=== PATIENT | male | born 1955 | race Caucasian/White ===

== ENCOUNTER 2020-12-10 10:53 | Observation (INO) | payer MEDICARE, OTHER ==
--- NOTE | 2020-12-10 11:01 | EDM.PDOC ---
ED HPI GENERAL MEDICAL PROBLEM - General Chief Complaint: Chest Pain Stated Complaint: CHEST PAIN Time Seen by Provider: 12/10/20 11:06 Source of Information: Reports: Patient, RN Notes Reviewed History Limitations: Reports: No Limitations - History of Present Illness INITIAL COMMENTS - FREE TEXT/NARRATIVE: 65-year-old gentleman presents emergency department with a complaint of chest tightness, he states it started early this morning about 3 AM was able to go back to sleep but awoke this morning pain has persisted, rates pain 6 out of 10 he has had some sharper movements has felt some short of breath no nausea vomiting no diaphoresis. He has no known cardiac history but he does smoke and he does have diabetes family history with his parents Chest Pain Score (Numeric/FACES): 6 - Related Data Allergies Allergy/AdvReac Type Severity Reaction Status Date / Time Sulfa (Sulfonamide Allergy Blisters Verified 12/10/20 12:17 Antibiotics) Home Meds: Home Meds Esomeprazole Magnesium [Nexium 24Hr] 1 tab PO DAILY 12/10/20 [History] Insulin Aspart [NovoLOG] 8 units SQ DAILY 12/10/20 [History] Insulin Glarg,Human.Rec.Analog [Lantus Solostar] 18 units SQ BEDTIME 12/10/20 [History] Multivitamin [Multi-Vitamin Daily] 1 tab PO DAILY 12/10/20 [History] lisinopriL [Lisinopril] 20 mg PO DAILY 12/10/20 [History] metFORMIN [Glucophage] 1,000 mg PO BID 12/10/20 [History] Past Medical History Cardiovascular History: Reports: High Cholesterol, Hypertension Endocrine/Metabolic History: Reports: Diabetes, Type II Social & Family History - Tobacco Use Tobacco Use Status *Q: Current Every Day Tobacco User ED ROS GENERAL - Review of Systems Review Of Systems: See Below Constitutional: Reports: No Symptoms Respiratory: Reports: Shortness of Breath Cardiovascular: Reports: Chest Pain GI/Abdominal: Reports: No Symptoms ED EXAM, GENERAL - Physical Exam Exam: See Below Exam Limited By: No Limitations General Appearance: Alert, WD/WN, No Apparent Distress Respiratory/Chest: No Respiratory Distress, Lungs Clear, Normal Breath Sounds, No Accessory Muscle Use, Chest Non-Tender Cardiovascular: Regular Rate, Rhythm, No Murmur GI/Abdominal: Soft, Non-Tender Extremities: No Pedal Edema #1 Interpretation EKG Date: 12/10/20 Time: 10:57 Rhythm: NSR [place]: LAD-Left [place] Deviation P-Wave: Present QRS: Normal ST-T: Normal QT: Normal Comparison: NA - No Prior EKG Course - Vital Signs Last Recorded V/S: Last Vital Signs Temp 98 F 12/10/20 13:48 Pulse 72 12/10/20 13:48 Resp 15 12/10/20 13:48 BP 148/87 H 12/10/20 13:48 Pulse Ox 97 12/10/20 13:48 - Orders/Labs/Meds Orders: Active Orders 24 hr Category Date Time Status Cardiac Monitoring [RC] .As Directed Care 12/10/20 11:05 Active EKG Documentation Completion [RC] ASDIRECTED Care 12/10/20 11:06 Active Peripheral IV Care [RC] . DIRECTED Care 12/10/20 11:06 Active Morphine Med 12/10/20 11:05 Active 4 mg IVPUSH Q10M PRN Nitroglycerin [Nitrostat] Med 12/10/20 11:05 Active 0.4 mg SL Q5M PRN Sodium Chloride 0.9% [Saline Flush] Med 12/10/20 11:05 Active 10 ml FLUSH ASDIRECTED PRN Peripheral IV Insertion Adult [OM.PC] Stat Oth 12/10/20 11:05 Ordered Saline Lock Insert [OM.PC] Stat Oth 12/10/20 11:05 Ordered EKG 12 Lead [EK] Stat Ther 12/10/20 11:06 Ordered Medication Orders Morphine Sulfate (Morphine 4 Mg/Ml Syringe) 4 mg IVPUSH Q10M PRN PRN Reason: Chest Pain Stop: 12/11/20 11:05 Nitroglycerin (Nitroglycerin 0.4 Mg Tab.Sl) 0.4 mg SL Q5M PRN PRN Reason: Chest Pain Stop: 12/11/20 11:05 Last Admin: 12/10/20 11:18 Dose: 0.4 mg Documented by: Admin: 12/10/20 11:09 Dose: 0.4 mg Documented by: DHRUV Sodium Chloride (Sodium Chloride 0.9% 10 Ml Syringe) 10 ml FLUSH ASDIRECTED PRN PRN Reason: Keep Vein Open Labs: Laboratory Tests 12/10/20 12/10/20 12/10/20 Range/Units 11:05 11:05 13:15 WBC 7.8 (4.5-11.0) K/uL RBC 5.31 (4.30-5.90) M/uL Hgb 16.6 H (12.0-15.0) g/dL Hct 47.2 (40.0-54.0) % MCV 89 (80-98) fL MCH 31 (27-31) pg MCHC 35 (32-36) % Plt Count 194 (150-400) K/uL Neut % (Auto) 66 (36-66) % Lymph % (Auto) 23 L (24-44) % [place] % (Auto) 8 H (2-6) % Eos % (Auto) 3 (2-4) % Baso % (Auto) 1 (0-1) % Sodium 142 (140-148) mmol/L Potassium 4.1 (3.6-5.2) mmol/L Chloride 103 (100-108) mmol/L Carbon Dioxide 29 (21-32) mmol/L Anion Gap 9.7 (5.0-14.0) mmol/L BUN 17 (7-18) mg/dL Creatinine 1.1 (0.8-1.3) mg/dL Est Cr Clr Drug Dosing 64.77 mL/min Estimated GFR (MDRD) > 60 (>60) Glucose 160 H (74-106) mg/dL Calcium 10.5 H (8.5-10.1) mg/dL Total Bilirubin 0.6 (0.2-1.0) mg/dL AST 22 (15-37) U/L ALT 64 (12-78) U/L Alkaline Phosphatase 76 (46-116) U/L Troponin I < 0.017 < 0.017 (0.000-0.056) ng/mL Total Protein 7.3 (6.4-8.2) g/dL Albumin 3.9 (3.4-5.0) g/dL Globulin 3.4 (2.3-3.5) g/dL Albumin/Globulin Ratio 1.1 L (1.2-2.2) Meds: Medications Generic Name Dose Route Start Last Admin Trade Name Freq PRN Reason Stop Dose Admin Morphine Sulfate 4 mg 12/10/20 11:05 Morphine 4 Mg/Ml Syringe IVPUSH 12/11/20 11:05 Q10M PRN Chest Pain Nitroglycerin 0.4 mg 12/10/20 11:05 12/10/20 11:18 Nitroglycerin 0.4 Mg Tab.Sl SL 12/11/20 11:05 0.4 mg Q5M PRN Administration Chest Pain Sodium Chloride 10 ml 12/10/20 11:05 Sodium Chloride 0.9% 10 Ml Syringe FLUSH ASDIRECTED PRN Keep Vein Open Discontinued Medications Generic Name Dose Route Start Last Admin Trade Name Freq PRN Reason Stop Dose Admin Ketorolac Tromethamine 30 mg 12/10/20 12:06 12/10/20 12:41 Ketorolac 30 Mg/Ml Sdv IVPUSH 12/10/20 12:07 30 mg ONETIME ONE Administration Nitroglycerin Confirm 12/10/20 11:08 12/10/20 11:26 Nitroglycerin 0.4 Mg Tab.Sl Administered 12/10/20 11:09 Not Given Dose 0.4 mg .ROUTE .[facility] - Re-Assessments/Exams Free Text/Narrative Re-Assessment/Exam: 12/10/20 12:07 Heart score is 5 Departure - Departure Time of Disposition: 14:07 Disposition: Admitted As Inpatient 66 Condition: Fair Clinical Impression: Chest pain Qualifiers: Chest pain type: unspecified Qualified Code(s): R07.9 - Chest pain, unspecified Referrals: PCP,None [Primary Care Provider] - Forms: ED Department Discharge Sepsis Event Note (ED) - Focused Exam Vital Signs: Vital Signs Temp Pulse Resp BP BP Pulse Ox 12/10/20 13:48 98 F 72 15 148/87 H 97 12/10/20 12:09 73 17 138/87 98 12/10/20 11:25 97.9 F 78 16 153/89 H 99 12/10/20 11:21 98 F 79 10 L 183/100 H 100 12/10/20 11:18 149/90 H 12/10/20 11:09 183/100 H 12/10/20 10:57 98 F 79 10 L 183/100 H 100 - My Orders Last 24 Hours: My Active Orders 12/10/20 11:05 Cardiac Monitoring [RC] .As Directed Morphine 4 mg IVPUSH Q10M PRN Nitroglycerin [Nitrostat] 0.4 mg SL Q5M PRN Sodium Chloride 0.9% [Saline Flush] 10 ml FLUSH ASDIRECTED PRN Peripheral IV Insertion Adult [OM.PC] Stat Saline Lock Insert [OM.PC] Stat 12/10/20 11:06 EKG Documentation Completion [RC] ASDIRECTED Peripheral IV Care [RC] . DIRECTED EKG 12 Lead [EK] Stat - Assessment/Plan Last 24 Hours: My Active Orders 12/10/20 11:05 Cardiac Monitoring [RC] .As Directed Morphine 4 mg IVPUSH Q10M PRN Nitroglycerin [Nitrostat] 0.4 mg SL Q5M PRN Sodium Chloride 0.9% [Saline Flush] 10 ml FLUSH ASDIRECTED PRN Peripheral IV Insertion Adult [OM.PC] Stat Saline Lock Insert [OM.PC] Stat 12/10/20 11:06 EKG Documentation Completion [RC] ASDIRECTED Peripheral IV Care [RC] . DIRECTED EKG 12 Lead [EK] Stat Plan: Assessment Acuity = acute Site and laterality = chest pain complicated patient known history of tobacco use diabetes mellitus type 2 Etiology = unknown Manifestations = none Location of injury = Home Lab values = CBC, CMP unremarkable troponin was negative x2 2 hours apart chest x-ray shows no acute process EKG no ST elevations or depressions Plan Call discussed case hospitalist on-call at 1400 he agreed to come evaluate patient emergency department for admission concern is underlying coronary artery disease or acute coronary syndrome given his high heart score This note was dictated using [employer] voice recognition software please call with any questions on syntax or grammar.
[2020-12-10] MEDS ORDERED: Sodium Chloride 0.9% 10 ML Syringe FLUSH PRN ×2 (11:05→15:46)
[2020-12-10] MEDS ORDERED: Morphine 4 MG/ML Syringe IVPUSH PRN ×2 (11:05→15:46)
[2020-12-10] MEDS ORDERED: Nitroglycerin 0.4 MG Tab.SL ONE (11:08)
[2020-12-10] MEDS: Nitroglycerin 0.4 MG Tab.SL SL PRN ×2 (11:09→11:18)
--- NOTE | 2020-12-10 11:55 | CR ---
CHEST: Portable CLINICAL HISTORY:Chest pain COMPARISON:None FINDINGS: The heart size, pulmonary vascularity and hilar structures are normal. No infiltrate effusion or pneumothorax is seen. There are atherosclerotic changes in the aorta. IMPRESSION: No acute cardiopulmonary process.
[2020-12-10] MEDS ORDERED: Ketorolac 30 MG/ML SDV IVPUSH ONE (12:06)
--- NOTE | 2020-12-10 14:40 | PCM.HP.2 ---
H&P History of Present Illness - General Date of Service: 12/10/20 Admit Problem/Dx: Admission Diagnosis/Problem Admission Diagnosis/Problem Chest pain Source of Information: Patient, Provider, RN Notes Reviewed History Limitations: Reports: No Limitations - History of Present Illness Initial Comments - Free Text/Narative: Mr. Bryson is a 65-year-old gentleman who was admitted through the emergency department observation status for further monitoring and evaluation of chest pain. He was feeling well until about 3 AM this morning when he awoke with left-sided chest pain described as an intense ache. He denies associated shortness of breath, diaphoresis, or nausea. He did take 2 aspirin and drink some water pain lasted approximately 1/2-hour. He was able to get back to sleep, but when he awoke at 5 AM noted a dull ache in his left chest. Pain became more intense again at 8 AM and he presented to the emergency department for further evaluation. That episode of pain lasted about an hour and 1/2 to 2 hours. Again he experienced no shortness of breath, diaphoresis, or nausea. He denies any prior history of heart disease. He received 2 sublingual nitroglyce rin in the emergency department and pain improved significantly at that time. He denies recent exertional chest pain or pressure or increase in shortness of breath, decrease in exercise tolerance. He does have a known history of type 2 diabetes mellitus. He also has a [id number]-[id number] smoking history. He denies hypertension, hyper cholesterolemia, and family history of coronary artery disease. 2 troponin levels have been obtained in the emergency department and are within normal range. Chest Pain Score (Numeric/FACES): 2 - Related Data Allergies/Adverse Reactions: Allergies Allergy/AdvReac Type Severity Reaction Status Date / Time Sulfa (Sulfonamide Allergy Blisters Verified 12/10/20 12:17 Antibiotics) Home Medications: Home Meds Esomeprazole Magnesium [Nexium 24Hr] 1 tab PO DAILY 12/10/20 [History] Insulin Aspart [NovoLOG] 8 units SQ DAILY 12/10/20 [History] Insulin Glarg,Human.Rec.Analog [Lantus Solostar] 18 units SQ BEDTIME 12/10/20 [History] Multivitamin [Multi-Vitamin Daily] 1 tab PO DAILY 12/10/20 [History] lisinopriL [Lisinopril] 20 mg PO DAILY 12/10/20 [History] metFORMIN [Glucophage] 1,000 mg PO BID 12/10/20 [History] Past Medical History Cardiovascular History: Reports: High Cholesterol, Hypertension Endocrine/Metabolic History: Reports: Diabetes, Type II - Infectious Disease History Infectious Disease History: Reports: Chicken Pox, Measles, Mumps - Past Surgical History HEENT Surgical History: Reports: Other (See Below) Other HEENT Surgeries/Procedures: deviated septum Social & Family History - Tobacco Use Tobacco Use Status *Q: Current Every Day Tobacco User Years of Tobacco use: 50 Packs/Tins Daily: 0.5 - Caffeine Use Caffeine Use: Reports: Energy Drinks - Recreational Drug Use Recreational Drug Use: No H&P Review of Systems - Review of Systems: Review Of Systems: See Below General: Reports: No Symptoms HEENT: Reports: No Symptoms Pulmonary: Reports: No Symptoms Cardiovascular: Reports: Chest Pain. Denies: Palpitations, Dyspnea on Exertion, Orthopnea, PND, Edema, Lightheadedness Gastrointestinal: Reports: No Symptoms Genitourinary: Reports: No Symptoms Musculoskeletal: Reports: No Symptoms Skin: Reports: No Symptoms Psychiatric: Reports: No Symptoms Neurological: Reports: No Symptoms Hematologic/Lymphatic: Reports: No Symptoms Immunologic: Reports: Pollen Allergy Exam - Exam Exam: See Below - Vital Signs Vital Signs: Last Vital Signs Temp 98 F 12/10/20 13:48 Pulse 72 12/10/20 13:48 Resp 15 12/10/20 13:48 BP 148/87 H 12/10/20 13:48 Pulse Ox 97 12/10/20 13:48 Weight: 179 lb - Exam Quality Assessment: DVT Prophylaxis General: Alert, Oriented, Cooperative HEENT: Conjunctiva Clear, Hearing Intact, Mucosa Moist & Cle[place], Normal Nasal Septum, Posterior Pharynx Clear, Pupils Equal Neck: Supple, Trachea Midline, +2 Carotid Pulse wo Bruit Lungs: Clear to Auscultation, Normal Respiratory Effort Cardiovascular: Regular Rate, Regular Rhythm, Normal S1, Normal S2. No: Systolic Murmur, Diastolic Murmur GI/Abdominal Exam: Soft, Non-Tender, No Organomegaly, No Distention Back Exam: Normal Inspection, Full Range of Motion Extremities: Non-Tender, No Pedal Edema Skin: Warm, Dry, Intact Neurological: Cranial Nerves Intact, Strength Equal Bilateral, Normal Speech, Normal Tone, Sensation Intact. No: Focal Deficit Neuro Extensive - Mental Status: Alert, Oriented x3, Normal Mood/Affect, Normal Cognition, Memory Intact - Patient Data Lab Results Last 24 hrs: Laboratory Results - last 24 hr 12/10/20 12/10/20 12/10/20 Range/Units 11:05 11:05 13:15 WBC 7.8 (4.5-11.0) K/uL RBC 5.31 (4.30-5.90) M/uL Hgb 16.6 H (12.0-15.0) g/dL Hct 47.2 (40.0-54.0) % MCV 89 (80-98) fL MCH 31 (27-31) pg MCHC 35 (32-36) % Plt Count 194 (150-400) K/uL Neut % (Auto) 66 (36-66) % Lymph % (Auto) 23 L (24-44) % [place] % (Auto) 8 H (2-6) % Eos % (Auto) 3 (2-4) % Baso % (Auto) 1 (0-1) % Sodium 142 (140-148) mmol/L Potassium 4.1 (3.6-5.2) mmol/L Chloride 103 (100-108) mmol/L Carbon Dioxide 29 (21-32) mmol/L Anion Gap 9.7 (5.0-14.0) mmol/L BUN 17 (7-18) mg/dL Creatinine 1.1 (0.8-1.3) mg/dL Est Cr Clr Drug Dosing 64.77 mL/min Estimated GFR (MDRD) > 60 (>60) Glucose 160 H (74-106) mg/dL Calcium 10.5 H (8.5-10.1) mg/dL Total Bilirubin 0.6 (0.2-1.0) mg/dL AST 22 (15-37) U/L ALT 64 (12-78) U/L Alkaline Phosphatase 76 (46-116) U/L Troponin I < 0.017 < 0.017 (0.000-0.056) ng/mL Total Protein 7.3 (6.4-8.2) g/dL Albumin 3.9 (3.4-5.0) g/dL Globulin 3.4 (2.3-3.5) g/dL Albumin/Globulin Ratio 1.1 L (1.2-2.2) Result Diagrams: 12/10/20 11:05 12/10/20 11:05 Sepsis Event Note - Evaluation Sepsis Screening Result: No Definite Risk - Focused Exam Vital Signs: Vital Signs Temp Pulse Resp BP BP Pulse Ox 12/10/20 13:48 98 F 72 15 148/87 H 97 12/10/20 12:09 73 17 138/87 98 12/10/20 11:25 97.9 F 78 16 153/89 H 99 12/10/20 11:21 98 F 79 10 L 183/100 H 100 12/10/20 11:18 149/90 H 12/10/20 11:09 183/100 H 12/10/20 10:57 98 F 79 10 L 183/100 H 100 *Q Meaningful Use (ADM) - VTE Risk Assess *Q Each Risk Factor Represents 1 Point: Obesity ( BMI > 25 kg/m2) Total Score 1 Point Risk Factors: 1 Each Risk Factor Represents 2 Points: Age 60 - 74 Years Total Score 2 Point Risk Factors: 2 Each Risk Factor Represents 3 Points: None Total Score 3 Point Risk Factors: 0 Each Risk Factor Represents 5 Points: None Total Score 5 Point Risk Factors: 0 Venous Thromboembolism Risk Factor Score *Q: 3 Problem List Initiated/Reviewed/Updated: Yes Orders Last 24hrs: Active Orders 24 hr Category Date Time Status Patient Status Manage Transfer [TRANSFER] Routine ADT 12/10/20 14:29 Ordered Cardiac Monitoring [RC] .As Directed Care 12/10/20 11:05 Active EKG Documentation Completion [RC] ASDIRECTED Care 12/10/20 11:06 Active Peripheral IV Care [RC] . DIRECTED Care 12/10/20 11:06 Active Morphine Med 12/10/20 11:05 Active 4 mg IVPUSH Q10M PRN Nitroglycerin [Nitrostat] Med 12/10/20 11:05 Active 0.4 mg SL Q5M PRN Sodium Chloride 0.9% [Saline Flush] Med 12/10/20 11:05 Active 10 ml FLUSH ASDIRECTED PRN Peripheral IV Insertion Adult [OM.PC] Stat Oth 12/10/20 11:05 Ordered Saline Lock Insert [OM.PC] Stat Oth 12/10/20 11:05 Ordered Resuscitation Status Routine Resus Stat 12/10/20 14:32 Ordered EKG 12 Lead [EK] Stat Ther 12/10/20 11:06 Ordered Medication Orders Morphine Sulfate (Morphine 4 Mg/Ml Syringe) 4 mg IVPUSH Q10M PRN PRN Reason: Chest Pain Stop: 12/11/20 11:05 Nitroglycerin (Nitroglycerin 0.4 Mg Tab.Sl) 0.4 mg SL Q5M PRN PRN Reason: Chest Pain Stop: 12/11/20 11:05 Last Admin: 12/10/20 11:18 Dose: 0.4 mg Documented by: Admin: 12/10/20 11:09 Dose: 0.4 mg Documented by: DHRUV Sodium Chloride (Sodium Chloride 0.9% 10 Ml Syringe) 10 ml FLUSH ASDIRECTED PRN PRN Reason: Keep Vein Open Assessment/Plan Comment:: ASSESSMENT AND PLAN CHEST PAIN-intermittent symptoms of chest pain over the last 12 hours. Troponin levels have been within normal range in the emergency department. Calculated HEART score of 5. Risk factors include longstanding smoking history and type 2 diabetes mellitus. -Observation admission -Serial troponin levels -Exercise Myoview study in the a.m. TYPE 2 DIABETES MELLITUS -Continue usual dose of long-acting and short acting insulin -4 times daily glucometers -Low-dose sliding scale Humalog MAINTENANCE ISSUES -DVT prophylaxis; Lovenox 40 mg subcu daily -GI prophylaxis; not indicated -[place] catheter; not indicated -Nutrition; consistent carbohydrate diet -Nicotine dependence; nicotine patch CODE STATUS-FULL CODE ADMISSION STATUS-this patient will be admitted to observation status, expect no more than a one night hospital stay for evaluation and management of problems as outlined above. DISPOSITION-anticipate discharge to home after the hospital stay. PRIMARY CARE PROVIDER-he is from [place] and does not have primary care provider in this area. - Mortality Measure Prognosis:: Good
[2020-12-10 15:38] LABS: CORONAVIRUS COVID-19 NAA NEGATIVE (NEGATIVE)
[2020-12-10] MEDS ORDERED: Nitroglycerin 0.4 MG Tab.SL SL PRN (15:46)
[2020-12-10] MEDS ORDERED: Ondansetron 4 MG/2 ML SDV IV PRN (15:46)
[2020-12-10] MEDS ORDERED: Acetaminophen 325 MG Tab PO PRN (15:46)
[2020-12-10] MEDS ORDERED: 50% Dextrose in Water 50 ML Syringe IV PRN (15:46)
[2020-12-10] MEDS ORDERED: Glucagon,Human Recombinant 1 MG Vial IM PRN (15:46)
[2020-12-10] MEDS ORDERED: Polyethylene Glycol 3350 Powder 17 GM Packet PO PRN (15:46)
[2020-12-10] MEDS ORDERED: Glucose Gel 15 GM in 37.5 GM Tube PO PRN (15:46)
[2020-12-10] MEDS ORDERED: metFORMIN 500 MG Tab PO SCH (17:00)
[2020-12-10] MEDS ORDERED: Enoxaparin 40 MG/0.4 ML Syringe SUBCUT SCH (17:00)
[2020-12-10] MEDS: Insulin Lispro 100 Unit/ML 3 ML KwikPen SUBCUT SCH ×2 (17:12→20:04)
[2020-12-10] MEDS ORDERED: Non-Formulary Medication 1 Each (Metformin [Glucophage] 1,000 MG Tablet) PO SCH (21:00)
[2020-12-10] MEDS ORDERED: Insulin Glargine,Human Rec. Analog 100 Units/ML 3 ML Pen SUBCUT SCH (21:00)
[2020-12-11] MEDS ORDERED: Pantoprazole 40 MG Tab.CR PO SCH (07:30)
--- NOTE | 2020-12-11 08:26 | PCM.DCSUM1 ---
Discharge Summary - Hospital Course Brief History: Mr. Bryson is a 65-year-old gentleman who was admitted through the emergency department observation status for further evaluation and management of chest pain. - Discharge Data Discharge Date: 12/11/20 Discharge Disposition: Against Medical Advice 07 Condition: Fair - Referral to Home Health Primary Care Physician: PCP None - Discharge Diagnosis/Problem(s) (1) Chest pain SNOMED Code(s): 58205964 ICD Code: R07.9 - CHEST PAIN, UNSPECIFIED Status: Acute Qualifiers: Chest pain type: unspecified Qualified Code(s): R07.9 - Chest pain, unspecified - Patient Summary/Data Hospital Course: Mr. Bryson is a 65-year-old gentleman who was admitted through the emergency department observation status for further monitoring and evaluation of chest pain. He was feeling well until about 3 AM this morning when he awoke with left-sided chest pain described as an intense ache. He denies associated shortness of breath, diaphoresis, or nausea. He did take 2 aspirin and drink some water pain lasted approximately 1/2-hour. He was able to get back to sleep, but when he awoke at 5 AM noted a dull ache in his left chest. Pain became more intense again at 8 AM and he presented to the emergency department for further evaluation. That episode of pain lasted about an hour and 1/2 to 2 hours. Again he experienced no shortness of breath, diaphoresis, or nausea. He denies any prior history of heart disease. He received 2 sublingual nitroglycerin in the emergency department and pain improved significantly at that time. He denies recent exertional chest pain or pressure or increase in shortness of breath, decrease in exercise tolerance. He does have a known history of type 2 diabetes mellitus. He also has a [id number] smoking history. He denies hypertension, hyper cholesterolemia, and family history of coronary artery disease. 2 troponin levels have been obtained in the emergency department and are within normal range. He was admitted to observation status and serial troponin levels were ordered. Lexiscan Myoview study was also ordered for the morning for further evaluation. Third troponin level did come back within normal range. He had one recurrent episode of chest pain that occurred after admission and resolved with 1 sublingual nitroglycerin. Early in the morning of December 11 patient reported to nursing staff that he was leaving and did sign out AGAINST MEDICAL ADVICE. - Discharge Plan *PRESCRIPTION DRUG MONITORING PROGRAM REVIEWED*: Not Applicable *COPY OF PRESCRIPTION DRUG MONITORING REPORT IN PATIENT ERIK: Not Applicable Home Medications: Home Meds Esomeprazole Magnesium [Nexium 24Hr] 1 tab PO DAILY 12/10/20 [History] Insulin Aspart [NovoLOG] 8 units SQ DAILY 12/10/20 [History] Insulin Glarg,Human.Rec.Analog [Lantus Solostar] 18 units SQ BEDTIME 12/10/20 [History] Multivitamin [Multi-Vitamin Daily] 1 tab PO DAILY 12/10/20 [History] lisinopriL [Lisinopril] 20 mg PO DAILY 12/10/20 [History] metFORMIN [Glucophage] 1,000 mg PO BID 12/10/20 [History] - Discharge Summary/Plan Comment DC Time >30 min.: No - Patient Data Vitals - Most Recent: Last Vital Signs Temp 97.4 F 12/10/20 20:00 Pulse 62 12/10/20 18:00 Resp 16 12/11/20 02:00 BP 132/70 12/11/20 02:00 Pulse Ox 95 12/11/20 02:00 Weight - Most Recent: 175 lb 9.6 oz I&O - Last 24 hours: Intake & Output 12/10/20 12/11/20 12/11/20 22:59 06:59 14:59 Intake Total 600 Output Total 500 250 Balance 100 -250 Lab Results - Last 24 hrs: Laboratory Results - last 24 hr 12/10/20 12/10/20 12/10/20 Range/Units 11:05 11:05 13:15 WBC 7.8 (4.5-11.0) K/uL RBC 5.31 (4.30-5.90) M/uL Hgb 16.6 H (12.0-15.0) g/dL Hct 47.2 (40.0-54.0) % MCV 89 (80-98) fL MCH 31 (27-31) pg MCHC 35 (32-36) % Plt Count 194 (150-400) K/uL Neut % (Auto) 66 (36-66) % Lymph % (Auto) 23 L (24-44) % [place] % (Auto) 8 H (2-6) % Eos % (Auto) 3 (2-4) % Baso % (Auto) 1 (0-1) % Sodium 142 (140-148) mmol/L Potassium 4.1 (3.6-5.2) mmol/L Chloride 103 (100-108) mmol/L Carbon Dioxide 29 (21-32) mmol/L Anion Gap 9.7 (5.0-14.0) mmol/L BUN 17 (7-18) mg/dL Creatinine 1.1 (0.8-1.3) mg/dL Est Cr Clr Drug Dosing 64.77 mL/min Estimated GFR (MDRD) > 60 (>60) Glucose 160 H (74-106) mg/dL Calcium 10.5 H (8.5-10.1) mg/dL Total Bilirubin 0.6 (0.2-1.0) mg/dL AST 22 (15-37) U/L ALT 64 (12-78) U/L Alkaline Phosphatase 76 (46-116) U/L Troponin I < 0.017 < 0.017 (0.000-0.056) ng/mL Total Protein 7.3 (6.4-8.2) g/dL Albumin 3.9 (3.4-5.0) g/dL Globulin 3.4 (2.3-3.5) g/dL Albumin/Globulin Ratio 1.1 L (1.2-2.2) Influenza Type A RNA (NEGATIVE) RSV RNA (INAAT) (NEGATIVE) Influenza Type B RNA (NEGATIVE) SARS-CoV-2 RNA (ALMA) (NEGATIVE) 12/10/20 12/10/20 Range/Units 14:50 20:09 WBC (4.5-11.0) K/uL RBC (4.30-5.90) M/uL Hgb (12.0-15.0) g/dL Hct (40.0-54.0) % MCV (80-98) fL MCH (27-31) pg MCHC (32-36) % Plt Count (150-400) K/uL Neut % (Auto) (36-66) % Lymph % (Auto) (24-44) % [place] % (Auto) (2-6) % Eos % (Auto) (2-4) % Baso % (Auto) (0-1) % Sodium (140-148) mmol/L Potassium (3.6-5.2) mmol/L Chloride (100-108) mmol/L Carbon Dioxide (21-32) mmol/L Anion Gap (5.0-14.0) mmol/L BUN (7-18) mg/dL Creatinine (0.8-1.3) mg/dL Est Cr Clr Drug Dosing mL/min Estimated GFR (MDRD) (>60) Glucose (74-106) mg/dL Calcium (8.5-10.1) mg/dL Total Bilirubin (0.2-1.0) mg/dL AST (15-37) U/L ALT (12-78) U/L Alkaline Phosphatase (46-116) U/L Troponin I < 0.017 (0.000-0.056) ng/mL Total Protein (6.4-8.2) g/dL Albumin (3.4-5.0) g/dL Globulin (2.3-3.5) g/dL Albumin/Globulin Ratio (1.2-2.2) Influenza Type A RNA Negative (NEGATIVE) RSV RNA (INAAT) Negative (NEGATIVE) Influenza Type B RNA Negative (NEGATIVE) SARS-CoV-2 RNA (ALMA) Negative (NEGATIVE) Med Orders - Current: Current Medications Discontinued Medications Acetaminophen (Acetaminophen 325 Mg Tab) 650 mg PO Q4H PRN PRN Reason: Pain (Mild 1-3)/fever Dextrose (Glucose Gel 15 Gm In 37.5 Gm Tube) 15 gm PO ASDIRECTED PRN PRN Reason: Hypoglycemia Dextrose/Water (50% Dextrose In Water 50 Ml Syringe) 50 ml IV ASDIRECTED PRN PRN Reason: Hypoglycemia Enoxaparin Sodium (Enoxaparin 40 Mg/0.4 Ml Syringe) 40 mg SUBCUT Q24H [facility] Last Admin: 12/10/20 17:11 Dose: 40 mg Documented by: Glucagon (Glucagon,Human Recombinant 1 Mg Vial) 1 mg IM ASDIRECTED PRN PRN Reason: Hypoglycemia Insulin Glargine (Insulin Glargine,Human Rec. Analog 100 Units/Ml 3 Ml Pen) 18 units SUBCUT BEDTIME [facility] Last Admin: 12/10/20 20:04 Dose: Not Given Documented by: Insulin Human Lispro (Insulin Lispro 100 Unit/Ml 3 Ml Kwikpen) 0 unit SUBCUT QIDACANDBED [facility]; Protocol Last Admin: 12/10/20 20:04 Dose: Not Given Documented by: Insulin Human Lispro (Insulin Lispro 100 Unit/Ml 3 Ml Kwikpen) 8 unit SUBCUT DAILY [facility] Ketorolac Tromethamine (Ketorolac 30 Mg/Ml Sdv) 30 mg IVPUSH ONETIME ONE Stop: 12/10/20 12:07 Last Admin: 12/10/20 12:41 Dose: 30 mg Documented by: Lisinopril (Lisinopril 20 Mg Tab) 20 mg PO DAILY [facility] Metformin HCl (Metformin 500 Mg Tab) 1,000 mg PO BIDMEALS [facility] Last Admin: 12/10/20 17:09 Dose: 1,000 mg Documented by: Morphine Sulfate (Morphine 4 Mg/Ml Syringe) 4 mg IVPUSH Q10M PRN PRN Reason: Chest Pain Stop: 12/11/20 11:05 Morphine Sulfate (Morphine 4 Mg/Ml Syringe) 4 mg IVPUSH Q10M PRN PRN Reason: Chest Pain Stop: 12/11/20 14:36 Nitroglycerin (Nitroglycerin 0.4 Mg Tab.Sl) 0.4 mg SL Q5M PRN PRN Reason: Chest Pain Stop: 12/11/20 11:05 Last Admin: 12/10/20 11:18 Dose: 0.4 mg Documented by: Nitroglycerin (Nitroglycerin 0.4 Mg Tab.Sl) Confirm Administered Dose 0.4 mg .ROUTE .STK-MED ONE Stop: 12/10/20 11:09 Last Admin: 12/10/20 11:26 Dose: Not Given Documented by: Nitroglycerin (Nitroglycerin 0.4 Mg Tab.Sl) 0.4 mg SL Q5M PRN PRN Reason: Chest Pain Stop: 12/11/20 14:35 Last Admin: 12/10/20 19:57 Dose: 0.4 mg Documented by: Ondansetron HCl (Ondansetron 4 Mg/2 Ml Sdv) 4 mg IV Q4H PRN PRN Reason: Nausea/Vomiting Pantoprazole Sodium (Pantoprazole 40 Mg Tab.Cr) 40 mg PO ACBREAKFAST [facility] Polyethylene Glycol (Polyethylene Glycol 3350 Powder 17 Gm Packet) 17 gm PO DAILY PRN PRN Reason: Constipation Sodium Chloride (Sodium Chloride 0.9% 10 Ml Syringe) 10 ml FLUSH ASDIRECTED PRN PRN Reason: Keep Vein Open Sodium Chloride (Sodium Chloride 0.9% 10 Ml Syringe) 10 ml FLUSH ASDIRECTED PRN PRN Reason: Keep Vein Open - Exam General: Reports: Other (Patient left AMA)
[2020-12-11] MEDS ORDERED: Lisinopril 20 MG Tab PO SCH (09:00)
[2020-12-11] MEDS ORDERED: Non-Formulary Medication 1 Each (Insulin Aspart [Novolog] 100 UNIT/ML Pen) SQ SCH (09:00)
[2020-12-11] MEDS ORDERED: Insulin Lispro 100 Unit/ML 3 ML KwikPen SUBCUT SCH (09:00)
== END 2020-12-11 03:40 | disposition left against medical advice (07) ==
LOC: JP.ED 10:53 → JP.ICU 14:29
PROVIDERS: ADMIT Hospitalist; ATTEND Hospitalist
DX: R07.9 Chest pain, unspecified (principal); E78.00 Pure hypercholesterolemia, unspecified; I10 Essential (primary) hypertension; E11.9 Type 2 diabetes mellitus without complications; F17.210 Nicotine dependence, cigarettes, uncomplicated; Z20.822 Contact with and (suspected) exposure to COVID-19; Z82.49 Family history of ischemic heart disease and other diseases of the circulatory system; Z79.4 Long term (current) use of insulin; Z88.2 Allergy status to sulfonamides; Z79.899 Other long term (current) drug therapy
CPT/HCPCS: 0241U; 36415; 71045; 71045-26; 80053; 82962; 84484; 85025; 93005; 96372; 96374; 99283; 99285-25; A9270-GY; G0378; J1650; J1815; J1815-GY; J1885

== ENCOUNTER 2020-12-14 20:25 | Inpatient (IN) | payer MEDICARE, OTHER ==
[2020-12-14] MEDS ORDERED: Octreotide 100 MCG/ML SDV IVPUSH ONE (20:39)
[2020-12-14] MEDS ORDERED: Tranexamic Acid 1,000 MG in Sodium Chloride 0.9% 50 ML IV ONE (20:42)
[2020-12-14] MEDS ORDERED: Sodium Chloride 0.9% 1,000 ML IV SCH (20:45)
--- NOTE | 2020-12-14 20:53 | EDM.PDOC ---
ED HPI GENERAL MEDICAL PROBLEM - General Stated Complaint: RECTAL BLEEDING Time Seen by Provider: 12/14/20 20:30 Source of Information: Reports: Patient History Limitations: Reports: No Limitations - History of Present Illness INITIAL COMMENTS - FREE TEXT/NARRATIVE: 65-year-old male who has developed significant GI bleed from the rectum over the past hour. He has not had this in the past. He was recently hospitalized for chest pain, [place] ruled out. Tonight he had supper, after supper he had some lower abdominal cramping and had 4 bowel movements in a row that was a significant amount of blood. He became lightheaded, almost passed out twice so came into the emergency room. On arrival his pants were full of clots, there is a significant amount of blood in his clothing and on the floor. He is not complaining currently of pain or shortness of breath, the chest pain he was recently hospitalized for has not recurred. Onset: Sudden Duration: Hour(s): (About 1 hour ago) Associated Symptoms: Reports: Syncope (Near syncope x2, some nausea but no vomiting) - Related Data Allergies Allergy/AdvReac Type Severity Reaction Status Date / Time Sulfa (Sulfonamide Allergy Blisters Verified 12/14/20 20:49 Antibiotics) Home Meds: Home Meds Esomeprazole Magnesium [Nexium 24Hr] 1 tab PO DAILY 12/10/20 [History] Insulin Aspart [NovoLOG] 8 units SQ DAILY 12/10/20 [History] Insulin Glarg,Human.Rec.Analog [Lantus Solostar] 18 units SQ BEDTIME 12/10/20 [History] Multivitamin [Multi-Vitamin Daily] 1 tab PO DAILY 12/10/20 [History] lisinopriL [Lisinopril] 20 mg PO DAILY 12/10/20 [History] metFORMIN [Glucophage] 1,000 mg PO BID 12/10/20 [History] Past Medical History Cardiovascular History: Reports: High Cholesterol, Hypertension Endocrine/Metabolic History: Reports: Diabetes, Type II - Infectious Disease History Infectious Disease History: Reports: Chicken Pox, Measles, Mumps - Past Surgical History HEENT Surgical History: Reports: Other (See Below) Other HEENT Surgeries/Procedures: deviated septum Social & Family History - Caffeine Use Caffeine Use: Reports: Energy Drinks ED ROS GENERAL - Review of Systems Review Of Systems: See Below Constitutional: Reports: Malaise. Denies: Fever, Chills, Decreased Appetite HEENT: Denies: Throat Pain Respiratory: Denies: Shortness of Breath, Cough Cardiovascular: Denies: Chest Pain, Palpitations GI/Abdominal: Reports: Abdominal Pain (Some right lower quadrant abdominal cramping earlier this evening), Hematochezia : Reports: No Symptoms Musculoskeletal: Reports: No Symptoms Skin: Reports: Pallor, Diaphoresis Neurological: Reports: Syncope (Near syncope). Denies: Headache Psychiatric: Reports: No Symptoms ED EXAM, GENERAL - Physical Exam Exam: See Below Exam Limited By: No Limitations General Appearance: Alert, No Apparent Distress Eye Exam: Bilateral Eye: Other (Generally normal but some mild conjunctival pallor) Head: Atraumatic Respiratory/Chest: No Respiratory Distress, Lungs Clear Cardiovascular: Regular Rate, Rhythm GI/Abdominal: Normal Bowel Sounds, Soft, Non-Tender Rectal (Males) Exam: Other (Significant amount of rectal bleeding with clots was present) Extremities: No: Pedal Edema Neurological: Alert, Oriented Psychiatric: Normal Affect, Normal Mood Skin Exam: Warm, Dry, Other (Mild pallor and diaphoresis was present on arrival, that has improved) Course - Vital Signs Last Recorded V/S: Last Vital Signs Temp 97.9 F 12/15/20 01:14 Pulse 83 12/15/20 01:14 Resp 16 12/15/20 01:14 BP 123/68 12/15/20 01:14 Pulse Ox 94 L 12/15/20 00:39 - Orders/Labs/Meds Orders: Active Orders 24 hr Category Date Time Status PATIENT RETYPE [BBK] Stat Lab 12/14/20 20:55 Results RED BLOOD CELLS LP [BBK] Stat Lab 12/14/20 20:55 Results TYPE AND SCREEN [BBK] Stat Lab 12/14/20 20:55 Results Medication Orders Acetaminophen (Acetaminophen 325 Mg Tab) 650 mg PO Q4H PRN PRN Reason: Pain (Mild 1-3)/fever Dextrose/Water (50% Dextrose In Water 50 Ml Syringe) 50 ml IVPUSH ASDIRECTED PRN PRN Reason: Hypoglycemia Diphenhydramine HCl (Diphenhydramine 50 Mg/Ml Sdv) 25 mg IVPUSH BEDTIME PRN PRN Reason: Insomnia Glucagon (Glucagon,Human Recombinant 1 Mg Vial) 1 mg IM ASDIRECTED PRN PRN Reason: Hypoglycemia Promethazine HCl 6.25 mg/ (Sodium Chloride) 50.25 mls @ 200 mls/hr IV Q6H PRN PRN Reason: Nausea/Vomiting Dextrose/Lactated Ringer's (Dextrose 5%-Lactated Ringers) 1,000 mls @ 150 mls/hr IV ASDIRECTED [facility] Last Admin: 12/15/20 00:56 Dose: 150 mls/hr Documented by: SHEILA Insulin Glargine (Insulin Glargine,Human Rec. Analog 100 Units/Ml 3 Ml Pen) 8 units SUBCUT DAILY [facility] Insulin Human Lispro (Insulin Lispro 100 Unit/Ml 3 Ml Kwikpen) 0 unit SUBCUT QIDACANDBED [facility]; Protocol Morphine Sulfate (Morphine 2 Mg/Ml Syringe) 2 mg IVPUSH Q2H PRN PRN Reason: Pain Nicotine (Nicotine 14 Mg/24 Hr Patch) 14 mg TRDERM DAILY [facility] Ondansetron HCl (Ondansetron 4 Mg/2 Ml Sdv) 4 mg IV Q4H PRN PRN Reason: Nausea/Vomiting Pantoprazole Sodium (Pantoprazole 40 Mg Vial) 40 mg IVPUSH Q12H [facility] Last Admin: 12/14/20 23:17 Dose: 40 mg Documented by: SHEILA Zolpidem Tartrate (Zolpidem 5 Mg Tab) 5 mg PO BEDTIME PRN PRN Reason: Sleep Last Admin: 12/14/20 23:16 Dose: 5 mg Documented by: SHEILA Labs: Laboratory Tests 12/14/20 12/14/20 12/14/20 Range/Units 20:40 20:40 20:40 WBC 12.5 H (4.5-11.0) K/uL RBC 5.05 (4.30-5.90) M/uL Hgb 15.5 H (12.0-15.0) g/dL Hct 44.1 (40.0-54.0) % MCV 87 (80-98) fL MCH 31 (27-31) pg MCHC 35 (32-36) % Plt Count 296 (150-400) K/uL Neut % (Auto) 47 (36-66) % Lymph % (Auto) 38 (24-44) % [place] % (Auto) 9 H (2-6) % Eos % (Auto) 5 H (2-4) % Baso % (Auto) 1 (0-1) % PT 10.7 (9.5-12.0) sec INR 0.98 (0.80-1.20) Sodium 146 (140-148) mmol/L Potassium 3.8 (3.6-5.2) mmol/L Chloride 104 (100-108) mmol/L Carbon Dioxide 27 (21-32) mmol/L Anion Gap 14.9 H (5.0-14.0) mmol/L BUN 18 (7-18) mg/dL Creatinine 1.3 (0.8-1.3) mg/dL Est Cr Clr Drug Dosing 54.81 mL/min Estimated GFR (MDRD) 55 L (>60) Glucose 218 H (74-106) mg/dL Calcium 9.6 (8.5-10.1) mg/dL Magnesium 1.7 L (1.8-2.4) mg/dL Total Bilirubin 0.2 D (0.2-1.0) mg/dL AST 20 (15-37) U/L ALT 51 (12-78) U/L Alkaline Phosphatase 67 (46-116) U/L Total Protein 6.6 (6.4-8.2) g/dL Albumin 3.2 L (3.4-5.0) g/dL Globulin 3.4 (2.3-3.5) g/dL Albumin/Globulin Ratio 0.9 L (1.2-2.2) Blood Type Gel Antibody Screen Crossmatch 12/14/20 Range/Units 20:55 WBC (4.5-11.0) K/uL RBC (4.30-5.90) M/uL Hgb (12.0-15.0) g/dL Hct (40.0-54.0) % MCV (80-98) fL MCH (27-31) pg MCHC (32-36) % Plt Count (150-400) K/uL Neut % (Auto) (36-66) % Lymph % (Auto) (24-44) % [place] % (Auto) (2-6) % Eos % (Auto) (2-4) % Baso % (Auto) (0-1) % PT (9.5-12.0) sec INR (0.80-1.20) Sodium (140-148) mmol/L Potassium (3.6-5.2) mmol/L Chloride (100-108) mmol/L Carbon Dioxide (21-32) mmol/L Anion Gap (5.0-14.0) mmol/L BUN (7-18) mg/dL Creatinine (0.8-1.3) mg/dL Est Cr Clr Drug Dosing mL/min Estimated GFR (MDRD) (>60) Glucose (74-106) mg/dL Calcium (8.5-10.1) mg/dL Magnesium (1.8-2.4) mg/dL Total Bilirubin (0.2-1.0) mg/dL AST (15-37) U/L ALT (12-78) U/L Alkaline Phosphatase (46-116) U/L Total Protein (6.4-8.2) g/dL Albumin (3.4-5.0) g/dL Globulin (2.3-3.5) g/dL Albumin/Globulin Ratio (1.2-2.2) Blood Type O POSITIVE Gel Antibody Screen Negative Crossmatch See Detail Meds: Medications Generic Name Dose Route Start Last Admin Trade Name Freq PRN Reason Stop Dose Admin Acetaminophen 650 mg 12/14/20 21:37 Acetaminophen 325 Mg Tab PO Q4H PRN Pain (Mild 1-3)/fever Dextrose/Water 50 ml 12/14/20 21:52 50% Dextrose In Water 50 Ml Syringe IVPUSH ASDIRECTED PRN Hypoglycemia Diphenhydramine HCl 25 mg 12/14/20 22:38 Diphenhydramine 50 Mg/Ml Sdv IVPUSH BEDTIME PRN Insomnia Glucagon 1 mg 12/14/20 21:52 Glucagon,Human Recombinant 1 Mg Vial IM ASDIRECTED PRN Hypoglycemia Promethazine HCl 6.25 mg/ 50.25 mls @ 200 mls/hr 12/14/20 21:37 Sodium Chloride IV Q6H PRN Nausea/Vomiting Dextrose/Lactated Ringer's 1,000 mls @ 150 mls/hr 12/14/20 22:00 12/15/20 00:56 Dextrose 5%-Lactated Ringers IV 150 mls/hr ASDIRECTED SEVER[facility] Administration Insulin Glargine 8 units 12/15/20 09:00 Insulin Glargine,Human Rec. Analog 100 Units/Ml 3 Ml Pen SUBCUT DAILY [facility] Insulin Human Lispro 0 unit 12/15/20 07:00 Insulin Lispro 100 Unit/Ml 3 Ml Kwikpen SUBCUT QIDACANDBED [facility] Protocol Morphine Sulfate 2 mg 12/14/20 21:37 Morphine 2 Mg/Ml Syringe IVPUSH Q2H PRN Pain Nicotine 14 mg 12/15/20 09:00 Nicotine 14 Mg/24 Hr Patch TRDERM DAILY [facility] Ondansetron HCl 4 mg 12/14/20 21:37 Ondansetron 4 Mg/2 Ml Sdv IV Q4H PRN Nausea/Vomiting Pantoprazole Sodium 40 mg 12/14/20 22:00 12/14/20 23:17 Pantoprazole 40 Mg Vial IVPUSH 40 mg Q12H [facility] Administration Zolpidem Tartrate 5 mg 12/14/20 21:37 12/14/20 23:16 Zolpidem 5 Mg Tab PO 5 mg BEDTIME PRN Administration Sleep Discontinued Medications Generic Name Dose Route Start Last Admin Trade Name Freq PRN Reason Stop Dose Admin Sodium Chloride 1,000 mls @ 1,000 mls/hr 12/14/20 20:45 12/14/20 21:21 Normal Saline IV 1,000 mls/hr ASDIRECTED SEVER[facility]O Administration Tranexamic Acid 1,000 mg/ 60 mls @ 200 mls/hr 12/14/20 20:42 12/14/20 21:21 Sodium Chloride IV 12/14/20 20:59 200 mls/hr ONETIME ONE Administration - Re-Assessments/Exams Free Text/Narrative Re-Assessment/Exam: 12/14/20 20:54 2 IVs were started, 2 units of blood were typed and crossed and patient was given 1000 mg of TXA. CBC, CMP, INR and magnesium were drawn. Consultation was done with surgery, he requested general medicine to admit the patient and take care of his rectal bleed and anemia overnight and he can consult in the morning. 12/14/20 21:04 Patient was cleaned up and 1/2-hour after he arrived he had no additional bleeding yet, he is currently receiving the TXA. His hemoglobin came back 15.5 which is one-point less than when he was in the hospital earlier this week when it was over 16. Vitals are still stable, his color is improving. We will finish the 1 L bolus of saline and Dr. Gregoria Garrido kindly agreed to come in and see the patient for admission. Departure - Departure Time of Disposition: 23:03 Disposition: Admitted As Inpatient 66 Clinical Impression: Rectal bleeding, Abdominal pain, right lower quadrant - Discharge Information Sepsis Event Note (ED) - Focused Exam Vital Signs: Vital Signs Temp Pulse Resp BP Pulse Ox 12/14/20 20:58 97.5 F 102 H 14 140/82 97 - My Orders Last 24 Hours: My Active Orders 12/14/20 20:55 PATIENT RETYPE [BBK] Stat RED BLOOD CELLS LP [BBK] Stat TYPE AND SCREEN [BBK] Stat - Assessment/Plan Last 24 Hours: My Active Orders 12/14/20 20:55 PATIENT RETYPE [BBK] Stat RED BLOOD CELLS LP [BBK] Stat TYPE AND SCREEN [BBK] Stat
[2020-12-14] MEDS ORDERED: Ondansetron 4 MG/2 ML SDV IV PRN (21:37)
[2020-12-14] MEDS ORDERED: Zolpidem 5 MG Tab PO PRN (21:37)
[2020-12-14] MEDS ORDERED: Morphine 2 MG/ML SYRINGE IVPUSH PRN (21:37)
[2020-12-14] MEDS ORDERED: Promethazine 6.25 MG in Sodium Chloride 0.9% 50 ML IV PRN (21:37)
[2020-12-14] MEDS ORDERED: 50% Dextrose in Water 50 ML Syringe IVPUSH PRN (21:52)
[2020-12-14] MEDS ORDERED: Glucagon,Human Recombinant 1 MG Vial IM PRN (21:52)
--- NOTE | 2020-12-14 22:20 | PCM.HP.2 ---
H&P History of Present Illness - General Date of Service: 12/14/20 Admit Problem/Dx: Admission Diagnosis/Problem Admission Diagnosis/Problem Hematochezia Source of Information: Patient History Limitations: Reports: No Limitations - History of Present Illness Initial Comments - Free Text/Narative: Patient is a DMII 65yo male who was recently admitted for chest pain, but with a negative workup. He presented today after having several large bloody bowel movements. He says there was amilcar blood as well as clots and dark stool. He says he had a colonoscopy about 25-30 years ago (at 35-40yrs of age) that showed polyps but he denies any recent scopes or family history of colon cancer. Additionally he states he hasn't been to the doctor recently. He says he has not had any significant alcohol consumption in over 10 years and denies any history of alcoholic liver disease or any liver disease. He does endorse very mild LRQ abd pain. He denies significant usage of NSAIDs. He says his last A1c was about 7.2 and he tries to keep it under tight control. He normally uses long acting insulin at 18 units at night if his BG is greater than 140. Patient denies ever having similar symptoms to this in the past. He does have a family history of RCC, and has had his kidneys ultrasounded in the past to monitor for this. Onset of Symptoms: Reports: Today, Sudden Duration of Symptoms: Reports: Hour(s):, Constant Location: Reports: Abdomen Improves with: Reports: None Worsens with: Reports: None Associated Symptoms: Reports: Syncope (patient had 2 near syncopal episodes prior to receiving IVF) - Related Data Allergies/Adverse Reactions: Allergies Allergy/AdvReac Type Severity Reaction Status Date / Time Sulfa (Sulfonamide Allergy Blisters Verified 12/14/20 20:49 Antibiotics) Home Medications: Home Meds Esomeprazole Magnesium [Nexium 24Hr] 1 tab PO DAILY 12/10/20 [History] Insulin Aspart [NovoLOG] 8 units SQ DAILY 12/10/20 [History] Insulin Glarg,Human.Rec.Analog [Lantus Solostar] 18 units SQ BEDTIME 12/10/20 [History] Multivitamin [Multi-Vitamin Daily] 1 tab PO DAILY 12/10/20 [History] lisinopriL [Lisinopril] 20 mg PO DAILY 12/10/20 [History] metFORMIN [Glucophage] 1,000 mg PO BID 12/10/20 [History] Past Medical History Cardiovascular History: Reports: High Cholesterol, Hypertension Gastrointestinal History: Reports: GERD Endocrine/Metabolic History: Reports: Diabetes, Type II - Infectious Disease History Infectious Disease History: Reports: Chicken Pox, Measles, Mumps - Past Surgical History HEENT Surgical History: Reports: Other (See Below) Other HEENT Surgeries/Procedures: deviated septum Social & Family History - Family History Family Medical History: No Pertinent Family History Oncologic: Reports: Renal - Tobacco Use Tobacco Use Status *Q: Current Every Day Tobacco User Years of Tobacco use: 50 Packs/Tins Daily: 1 - Caffeine Use Caffeine Use: Reports: Energy Drinks H&P Review of Systems - Review of Systems: Review Of Systems: See Below General: Reports: Fatigue, Diaphoresis HEENT: Reports: No Symptoms Pulmonary: Reports: No Symptoms Cardiovascular: Reports: No Symptoms Gastrointestinal: Reports: Black Stool, Bloody Stool, Hematochezia Genitourinary: Reports: Frequency, Urgency Skin: Reports: No Symptoms Psychiatric: Reports: No Symptoms Neurological: Reports: No Symptoms Hematologic/Lymphatic: Reports: No Symptoms Immunologic: Reports: No Symptoms Exam - Exam Exam: See Below - Vital Signs Vital Signs: Last Vital Signs Temp 36.4 C 12/14/20 20:58 Pulse 102 H 12/14/20 20:58 Resp 14 12/14/20 20:58 BP 140/82 12/14/20 20:58 Pulse Ox 97 12/14/20 20:58 Weight: 81.193 kg - Exam General: Alert, Oriented, Cooperative HEENT: PERRLA, Hearing Intact, Mucosa Moist & [place], Nares Patent, Normal Nasal Septum, Posterior Pharynx Clear, Conjunctiva Clear, EOMI, EACs Clear, TMs Clear Neck: Supple, Trachea Midline, 2 Lungs: Clear to Auscultation, Normal Respiratory Effort Cardiovascular: Regular Rate, Regular Rhythm GI/Abdominal Exam: Normal Bowel Sounds, Soft, Non-Tender, No Organomegaly, No Distention, No Abnormal Bruit, No Mass, Pelvis Stable (Male) Exam: Deferred Rectal (Males) Exam: Black Stool, Bloody Stool Back Exam: Normal Inspection, Full Range of Motion, NT Extremities: Normal Inspection, Normal Range of Motion, Non-Tender, No Pedal Edema, Normal Capillary Refill Skin: Warm, Dry, Intact Neurological: Cranial Nerves Intact, Reflexes Equal Bilateral Neuro Extensive - Mental Status: Alert, Oriented x3, Normal Mood/Affect, Normal Cognition Neuro Extensive - Motor, Sensory, Reflexes: CN II-XII Intact, Normal Gait, Normal Reflexes Psychiatric: Alert, Normal Affect, Normal Mood - Patient Data Lab Results Last 24 hrs: Laboratory Results - last 24 hr 12/14/20 12/14/20 12/14/20 Range/Units 20:40 20:40 20:40 WBC 12.5 H (4.5-11.0) K/uL RBC 5.05 (4.30-5.90) M/uL Hgb 15.5 H (12.0-15.0) g/dL Hct 44.1 (40.0-54.0) % MCV 87 (80-98) fL MCH 31 (27-31) pg MCHC 35 (32-36) % Plt Count 296 (150-400) K/uL Neut % (Auto) 47 (36-66) % Lymph % (Auto) 38 (24-44) % [place] % (Auto) 9 H (2-6) % Eos % (Auto) 5 H (2-4) % Baso % (Auto) 1 (0-1) % PT 10.7 (9.5-12.0) sec INR 0.98 (0.80-1.20) Sodium 146 (140-148) mmol/L Potassium 3.8 (3.6-5.2) mmol/L Chloride 104 (100-108) mmol/L Carbon Dioxide 27 (21-32) mmol/L Anion Gap 14.9 H (5.0-14.0) mmol/L BUN 18 (7-18) mg/dL Creatinine 1.3 (0.8-1.3) mg/dL Est Cr Clr Drug Dosing 54.81 mL/min Estimated GFR (MDRD) 55 L (>60) Glucose 218 H (74-106) mg/dL Calcium 9.6 (8.5-10.1) mg/dL Magnesium 1.7 L (1.8-2.4) mg/dL Total Bilirubin 0.2 D (0.2-1.0) mg/dL AST 20 (15-37) U/L ALT 51 (12-78) U/L Alkaline Phosphatase 67 (46-116) U/L Total Protein 6.6 (6.4-8.2) g/dL Albumin 3.2 L (3.4-5.0) g/dL Globulin 3.4 (2.3-3.5) g/dL Albumin/Globulin Ratio 0.9 L (1.2-2.2) Blood Type Gel Antibody Screen Crossmatch 12/14/20 Range/Units 20:55 WBC (4.5-11.0) K/uL RBC (4.30-5.90) M/uL Hgb (12.0-15.0) g/dL Hct (40.0-54.0) % MCV (80-98) fL MCH (27-31) pg MCHC (32-36) % Plt Count (150-400) K/uL Neut % (Auto) (36-66) % Lymph % (Auto) (24-44) % [place] % (Auto) (2-6) % Eos % (Auto) (2-4) % Baso % (Auto) (0-1) % PT (9.5-12.0) sec INR (0.80-1.20) Sodium (140-148) mmol/L Potassium (3.6-5.2) mmol/L Chloride (100-108) mmol/L Carbon Dioxide (21-32) mmol/L Anion Gap (5.0-14.0) mmol/L BUN (7-18) mg/dL Creatinine (0.8-1.3) mg/dL Est Cr Clr Drug Dosing mL/min Estimated GFR (MDRD) (>60) Glucose (74-106) mg/dL Calcium (8.5-10.1) mg/dL Magnesium (1.8-2.4) mg/dL Total Bilirubin (0.2-1.0) mg/dL AST (15-37) U/L ALT (12-78) U/L Alkaline Phosphatase (46-116) U/L Total Protein (6.4-8.2) g/dL Albumin (3.4-5.0) g/dL Globulin (2.3-3.5) g/dL Albumin/Globulin Ratio (1.2-2.2) Blood Type O POSITIVE Gel Antibody Screen Negative Crossmatch See Detail Result Diagrams: 12/14/20 20:40 04/04/21 20:40 Sepsis Event Note - Evaluation Sepsis Screening Result: No Definite Risk - Focused Exam Vital Signs: Vital Signs Temp Pulse Resp BP Pulse Ox 12/14/20 20:58 36.4 C 102 H 14 140/82 97 *Q Meaningful Use (ADM) - VTE *Q VTE Anticoagulation Contraindications: Medical/Procedure Contrai - Problem List (1) Rectal bleeding SNOMED Code(s): 22321921 ICD Code: K62.5 - HEMORRHAGE OF ANUS AND RECTUM Status: Acute Current Visit: Yes Onset Date: ~12/14/20 Problem Details: WIll have surgical consult in the AM. Surgeon alerted. Will hold blood products for now, type and crossed. Patient should be transfused if there is a single drop of more than 3 points or if he has a total drop of more than 5 points. His baseline Hgb was ~16 from previous visit. Patient's HGB on admission was 15.5. Will start pantoprazole BID 40mg for GI prophylaxis. I have not started octreotide as there is no clear history of alcoholism or liver disease. Patient will be placed in the ICU as he will need to have close monitoring. He will be on continuous cardiac and oxygen monitoring. Patient should not be up without assistance as there is a high fall risk. Patient will be placed NPO due to GI bleed. Patient on D5LR for maintanence fluids as he is diabetic (2) Diabetes type 2, controlled SNOMED Code(s): 70768113, 881789710 ICD Code: E11.9 - TYPE 2 DIABETES MELLITUS WITHOUT COMPLICATIONS Status: A cute Current Visit: Yes Onset Date: Unknown Problem Details: Will hold metformin at this time and have patient's lispro insulin be 8U if BG is higher than 175. Using sliding scale low protocol to ensure patient does not have hypoglycemia during admission as this could complicate management of possible hemorrhagic anemia Qualifiers: Diabetes mellitus longterm insulin use: with rat exterminator use (3) Abdominal pain, right lower quadrant SNOMED Code(s): 199164108 ICD Code: R10.31 - RIGHT LOWER QUADRANT PAIN Status: Acute Current Visit: Yes Onset Date: ~12/14/20 Problem Details: Minimal at this time. patient will be NPO for procedure tomorrow Problem List Initiated/Reviewed/Updated: Yes Orders Last 24hrs: Active Orders 24 hr Category Date Time Status Patient Status [ADT] Routine ADT 12/14/20 21:37 Ordered Ambulate [RC] ASDIRECTED Care 12/14/20 21:37 Ordered Bedrest Bedside Commode [RC] ASDIRECTED Care 12/14/20 21:37 Ordered Blood Glucose Check, Bedside [RC] TIDMEALS Care 12/14/20 21:37 Ordered Cardiac Monitoring [RC] CONTINUOUS Care 12/14/20 21:50 Ordered Notify Provider Consults [RC] ASDIRECTED Care 12/14/20 21:50 Ordered Oxygen Therapy [RC] PRN Care 12/14/20 21:37 Ordered Pulse Oximetry [RC] CONTINUOUS Care 12/14/20 21:50 Ordered Up With Assistance [RC] ASDIRECTED Care 12/14/20 21:37 Ordered VTE/DVT Education [RC] Per Unit Routine Care 12/14/20 21:37 Ordered Vital Signs [RC] Q4H Care 12/14/20 21:37 Ordered Consult to Physician [CONS] Routine Cons 12/14/20 21:37 Ordered Nothing per Oral Now Diet [DIET] Diet 12/14/20 Breakfast Ordered PATIENT RETYPE [BBK] Stat Lab 12/14/20 20:55 Results RED BLOOD CELLS LP [BBK] Stat Lab 12/14/20 20:55 Results TYPE AND SCREEN [BBK] Stat Lab 12/14/20 20:55 Results Acetaminophen [TylenoL] Med 12/14/20 21:37 Ordered 650 mg PO Q4H PRN Dextrose 5%-Lactated Ringers @ 150 MLS/HR(1,000ml) Med 12/14/20 22:00 Ordered Dextrose 5%-Lactated Ringers 1,000 ml IV ASDIRECTED Dextrose 50% in Water Med 12/14/20 21:52 Ordered 50 ml IVPUSH ASDIRECTED PRN Glucagon,Human Recombinant [GlucaGen] Med 12/14/20 21:52 Ordered 1 mg IM ASDIRECTED PRN Insulin Glarg,Human.Rec.Analog [LantUS Solostar] Med 12/15/20 09:00 Ordered 8 units SUBCUT DAILY Insulin Lispro [HumaLOG] Med 12/15/20 07:00 Ordered See Protocol SUBCUT QIDACANDBED Morphine Med 12/14/20 21:37 Ordered 2 mg IVPUSH Q2H PRN Nicotine [Habitrol] Med 12/15/20 09:00 Ordered 14 mg TRDERM DAILY Ondansetron [Zofran] Med 12/14/20 21:37 Ordered 4 mg IV Q4H PRN Pantoprazole [ProTONIX IV] Med 12/14/20 22:00 Ordered 40 mg IVPUSH Q12H Promethazine [Phenergan] 6.25 mg Med 12/14/20 21:37 Ordered Sodium Chloride 0.9% [Normal Saline] 50 ml IV Q6H Sodium Chloride 0.9% [Normal Saline] 1,000 ml Med 12/14/20 20:45 Active IV ASDIRECTED Zolpidem [Ambien] Med 12/14/20 21:37 Ordered 5 mg PO BEDTIME PRN Anticoagulation Contraindications VTE [AST] Per Unit Oth 12/14/20 21:37 Ordered Routine Resuscitation Status Routine Resus Stat 12/14/20 21:37 Ordered Medication Orders Acetaminophen (Acetaminophen 325 Mg Tab) 650 mg PO Q4H PRN PRN Reason: Pain (Mild 1-3)/fever Dextrose/Water (50% Dextrose In Water 50 Ml Syringe) 50 ml IVPUSH ASDIRECTED PRN PRN Reason: Hypoglycemia Glucagon (Glucagon,Human Recombinant 1 Mg Vial) 1 mg IM ASDIRECTED PRN PRN Reason: Hypoglycemia Sodium Chloride (Normal Saline) 1,000 mls @ 1,000 mls/hr IV ASDIRECTED [facility] Last Admin: 12/14/20 21:21 Dose: 1,000 mls/hr Documented by: GAGE Promethazine HCl 6.25 mg/ (Sodium Chloride) 50.25 mls @ 200 mls/hr IV Q6H PRN PRN Reason: Nausea/Vomiting Dextrose/Lactated Ringer's (Dextrose 5%-Lactated Ringers) 1,000 mls @ 150 mls/hr IV ASDIRECTED [facility] Insulin Glargine (Insulin Glargine,Human Rec. Analog 100 Units/Ml 3 Ml Pen) 8 units SUBCUT DAILY [facility] Insulin Human Lispro (Insulin Lispro 100 Unit/Ml 3 Ml Kwikpen) 0 unit SUBCUT QIDACANDBED [facility]; Protocol Morphine Sulfate (Morphine 2 Mg/Ml Syringe) 2 mg IVPUSH Q2H PRN PRN Reason: Pain Nicotine (Nicotine 14 Mg/24 Hr Patch) 14 mg TRDERM DAILY SEVER[facility] Ondansetron HCl (Ondansetron 4 Mg/2 Ml Sdv) 4 mg IV Q4H PRN PRN Reason: Nausea/Vomiting Pantoprazole Sodium (Pantoprazole 40 Mg Vial) 40 mg IVPUSH Q12H [facility] Zolpidem Tartrate (Zolpidem 5 Mg Tab) 5 mg PO BEDTIME PRN PRN Reason: Sleep - Mortality Measure Prognosis:: Good
[2020-12-14] MEDS ORDERED: diphenhydrAMINE 50 MG/ML SDV IVPUSH PRN (22:38)
[2020-12-14] MEDS: Pantoprazole 40 MG Vial IVPUSH SCH (23:17)
[2020-12-15] MEDS: Dextrose 5%-Lactated Ringers 1,000 ML IV SCH ×3 (00:56→11:27)
[2020-12-15] MEDS ORDERED: Insulin Lispro 100 Unit/ML 3 ML KwikPen SUBCUT SCH (07:00)
[2020-12-15] MEDS: Insulin Lispro 100 Unit/ML 3 ML KwikPen SUBCUT SCH ×4 (08:38→19:29)
[2020-12-15] MEDS ORDERED: Insulin Glargine,Human Rec. Analog 100 Units/ML 3 ML Pen SUBCUT SCH (09:00)
[2020-12-15] MEDS: Nicotine 14 MG/24 Hr Patch TRDERM SCH ×2 (09:00→20:49)
[2020-12-15] MEDS ORDERED: fentaNYL 100 MCG/2 ML SDV ONE (09:24)
[2020-12-15] MEDS ORDERED: Midazolam 1 MG/ML 2 ML SDV ONE (09:24)
[2020-12-15] MEDS ORDERED: Propofol 200 MG/20 ML SDV ONE (09:24)
[2020-12-15] MEDS: Pantoprazole 40 MG Vial IVPUSH SCH (09:47)
--- NOTE | 2020-12-15 09:55 | PCM.PN ---
- General Info Date of Service: 12/15/20 Subjective Update: There were no acute events overnight. Patient has not had any recurrence of the hematochezia. No complaints of abdominal pain or nausea. He does feel like he has some acid reflux this morning. No complaints of chest pain. He did have a colonoscopy this morning that showed some old blood in the colon but no obvious source for bleeding. There was enough blood that the colon was not well visualized and colonoscopy prep is planned for later in the day. Hemoglobin stable this morning compared to last night. Functional Status: Reports: Pain Controlled, Tolerating Diet - Review of Systems General: Denies: Fever Gastrointestinal: Denies: Abdominal Pain, Hematochezia - Patient Data Vitals - Most Recent: Last Vital Signs Temp 36.8 C 12/15/20 08:00 Pulse 64 12/15/20 06:00 Resp 11 L 12/15/20 08:00 BP 147/82 H 12/15/20 08:00 Pulse Ox 98 12/15/20 08:00 Weight - Most Recent: 79.832 kg I&O - Last 24 Hours: Intake & Output 12/14/20 12/15/20 12/15/20 22:59 06:59 14:59 Intake Total 275 Output Total 525 250 Balance -250 -250 Lab Results Last 24 Hours: Laboratory Results - last 24 hr 12/14/20 12/14/20 12/14/20 Range/Units 20:40 20:40 20:40 WBC 12.5 H (4.5-11.0) K/uL RBC 5.05 (4.30-5.90) M/uL Hgb 15.5 H (12.0-15.0) g/dL Hct 44.1 (40.0-54.0) % MCV 87 (80-98) fL MCH 31 (27-31) pg MCHC 35 (32-36) % Plt Count 296 (150-400) K/uL Neut % (Auto) 47 (36-66) % Lymph % (Auto) 38 (24-44) % [place] % (Auto) 9 H (2-6) % Eos % (Auto) 5 H (2-4) % Baso % (Auto) 1 (0-1) % PT 10.7 (9.5-12.0) sec INR 0.98 (0.80-1.20) Sodium 146 (140-148) mmol/L Potassium 3.8 (3.6-5.2) mmol/L Chloride 104 (100-108) mmol/L Carbon Dioxide 27 (21-32) mmol/L Anion Gap 14.9 H (5.0-14.0) mmol/L BUN 18 (7-18) mg/dL Creatinine 1.3 (0.8-1.3) mg/dL Est Cr Clr Drug Dosing 54.81 mL/min Estimated GFR (MDRD) 55 L (>60) Glucose 218 H (74-106) mg/dL Calcium 9.6 (8.5-10.1) mg/dL Magnesium 1.7 L (1.8-2.4) mg/dL Total Bilirubin 0.2 D (0.2-1.0) mg/dL AST 20 (15-37) U/L ALT 51 (12-78) U/L Alkaline Phosphatase 67 (46-116) U/L Total Protein 6.6 (6.4-8.2) g/dL Albumin 3.2 L (3.4-5.0) g/dL Globulin 3.4 (2.3-3.5) g/dL Albumin/Globulin Ratio 0.9 L (1.2-2.2) Blood Type Gel Antibody Screen Crossmatch 12/14/20 12/15/20 12/15/20 Range/Units 20:55 00:05 04:00 WBC 10.4 8.0 (4.5-11.0) K/uL RBC 4.23 L 3.98 L (4.30-5.90) M/uL Hgb 12.4 D 12.1 (12.0-15.0) g/dL Hct 37.4 L 35.3 L (40.0-54.0) % MCV 88 89 (80-98) fL MCH 29 30 (27-31) pg MCHC 33 34 (32-36) % Plt Count 223 200 (150-400) K/uL Neut % (Auto) (36-66) % Lymph % (Auto) (24-44) % [place] % (Auto) (2-6) % Eos % (Auto) (2-4) % Baso % (Auto) (0-1) % PT (9.5-12.0) sec INR (0.80-1.20) Sodium (140-148) mmol/L Potassium (3.6-5.2) mmol/L Chloride (100-108) mmol/L Carbon Dioxide (21-32) mmol/L Anion Gap (5.0-14.0) mmol/L BUN (7-18) mg/dL Creatinine (0.8-1.3) mg/dL Est Cr Clr Drug Dosing mL/min Estimated GFR (MDRD) (>60) Glucose (74-106) mg/dL Calcium (8.5-10.1) mg/dL Magnesium (1.8-2.4) mg/dL Total Bilirubin (0.2-1.0) mg/dL AST (15-37) U/L ALT (12-78) U/L Alkaline Phosphatase (46-116) U/L Total Protein (6.4-8.2) g/dL Albumin (3.4-5.0) g/dL Globulin (2.3-3.5) g/dL Albumin/Globulin Ratio (1.2-2.2) Blood Type O POSITIVE Gel Antibody Screen Negative Crossmatch See Detail 12/15/20 Range/Units 08:05 WBC 7.0 (4.5-11.0) K/uL RBC 3.99 L (4.30-5.90) M/uL Hgb 12.1 (12.0-15.0) g/dL Hct 35.2 L (40.0-54.0) % MCV 88 (80-98) fL MCH 30 (27-31) pg MCHC 34 (32-36) % Plt Count 189 (150-400) K/uL Neut % (Auto) (36-66) % Lymph % (Auto) (24-44) % [place] % (Auto) (2-6) % Eos % (Auto) (2-4) % Baso % (Auto) (0-1) % PT (9.5-12.0) sec INR (0.80-1.20) Sodium (140-148) mmol/L Potassium (3.6-5.2) mmol/L Chloride (100-108) mmol/L Carbon Dioxide (21-32) mmol/L Anion Gap (5.0-14.0) mmol/L BUN (7-18) mg/dL Creatinine (0.8-1.3) mg/dL Est Cr Clr Drug Dosing mL/min Estimated GFR (MDRD) (>60) Glucose (74-106) mg/dL Calcium (8.5-10.1) mg/dL Magnesium (1.8-2.4) mg/dL Total Bilirubin (0.2-1.0) mg/dL AST (15-37) U/L ALT (12-78) U/L Alkaline Phosphatase (46-116) U/L Total Protein (6.4-8.2) g/dL Albumin (3.4-5.0) g/dL Globulin (2.3-3.5) g/dL Albumin/Globulin Ratio (1.2-2.2) Blood Type Gel Antibody Screen Crossmatch Med Orders - Current: Current Medications Acetaminophen (Acetaminophen 325 Mg Tab) 650 mg PO Q4H PRN PRN Reason: Pain (Mild 1-3)/fever Dextrose/Water (50% Dextrose In Water 50 Ml Syringe) 50 ml IVPUSH ASDIRECTED PRN PRN Reason: Hypoglycemia Diphenhydramine HCl (Diphenhydramine 50 Mg/Ml Sdv) 25 mg IVPUSH BEDTIME PRN PRN Reason: Insomnia Glucagon (Glucagon,Human Recombinant 1 Mg Vial) 1 mg IM ASDIRECTED PRN PRN Reason: Hypoglycemia Promethazine HCl 6.25 mg/ (Sodium Chloride) 50.25 mls @ 200 mls/hr IV Q6H PRN PRN Reason: Nausea/Vomiting Dextrose/Lactated Ringer's (Dextrose 5%-Lactated Ringers) 1,000 mls @ 150 mls/hr IV ASDIRECTED [facility] Last Admin: 12/15/20 08:56 Dose: 150 mls/hr Documented by: Insulin Glargine (Insulin Glargine,Human Rec. Analog 100 Units/Ml 3 Ml Pen) 18 units SUBCUT BEDTIME [facility] Insulin Human Lispro (Insulin Lispro 100 Unit/Ml 3 Ml Kwikpen) 0 unit SUBCUT QIDACANDBED [facility]; Protocol Last Admin: 12/15/20 08:38 Dose: 6 units Documented by: Morphine Sulfate (Morphine 2 Mg/Ml Syringe) 2 mg IVPUSH Q2H PRN PRN Reason: Pain Nicotine (Nicotine 14 Mg/24 Hr Patch) 14 mg TRDERM DAILY [facility] Last Admin: 12/15/20 09:00 Dose: Not Given Documented by: Ondansetron HCl (Ondansetron 4 Mg/2 Ml Sdv) 4 mg IV Q4H PRN PRN Reason: Nausea/Vomiting Pantoprazole Sodium (Pantoprazole 40 Mg Vial) 40 mg IVPUSH Q12H [facility] Last Admin: 12/15/20 09:47 Dose: 40 mg Documented by: Zolpidem Tartrate (Zolpidem 5 Mg Tab) 5 mg PO BEDTIME PRN PRN Reason: Sleep Last Admin: 12/14/20 23:16 Dose: 5 mg Documented by: Discontinued Medications Fentanyl (Fentanyl 100 Mcg/2 Ml Sdv) Confirm Administered Dose 100 mcg .ROUTE .STK-MED ONE Stop: 12/15/20 09:25 Sodium Chloride (Normal Saline) 1,000 mls @ 1,000 mls/hr IV ASDIRECTED [facility] Last Admin: 12/14/20 21:21 Dose: 1,000 mls/hr Documented by: Tranexamic Acid 1,000 mg/ (Sodium Chloride) 60 mls @ 200 mls/hr IV ONETIME ONE Stop: 12/14/20 20:59 Last Admin: 12/14/20 21:21 Dose: 200 mls/hr Documented by: Insulin Glargine (Insulin Glargine,Human Rec. Analog 100 Units/Ml 3 Ml Pen) 8 units SUBCUT DAILY [facility] Insulin Human Lispro (Insulin Lispro 100 Unit/Ml 3 Ml Kwikpen) 0 unit SUBCUT QIDACANDBED [facility]; Protocol Last Admin: 12/15/20 08:35 Dose: Not Given Documented by: Midazolam HCl (Midazolam 1 Mg/Ml 2 Ml Sdv) Confirm Administered Dose 2 mg .ROUTE .STK-MED ONE Stop: 12/15/20 09:25 Propofol (Propofol 200 Mg/20 Ml Sdv) Confirm Administered Dose 200 mg .ROUTE .STK-MED ONE Stop: 12/15/20 09:25 - Exam Quality Assessment: No: Supplemental Oxygen General: Alert, Oriented, Cooperative, No Acute Distress Lungs: Normal Respiratory Effort. No: Wheezing Cardiovascular: Regular Rate, Regular Rhythm GI/Abdominal Exam: Soft, No Distention Extremities: No Pedal Edema. No: Increased Warmth Skin: Warm, Dry Psy/Mental Status: Alert, Normal Affect - Patient Data Lab Results Last 24 hrs: Laboratory Results - last 24 hr 12/14/20 12/14/20 12/14/20 Range/Units 20:40 20:40 20:40 WBC 12.5 H (4.5-11.0) K/uL RBC 5.05 (4.30-5.90) M/uL Hgb 15.5 H (12.0-15.0) g/dL Hct 44.1 (40.0-54.0) % MCV 87 (80-98) fL MCH 31 (27-31) pg MCHC 35 (32-36) % Plt Count 296 (150-400) K/uL Neut % (Auto) 47 (36-66) % Lymph % (Auto) 38 (24-44) % [place] % (Auto) 9 H (2-6) % Eos % (Auto) 5 H (2-4) % Baso % (Auto) 1 (0-1) % PT 10.7 (9.5-12.0) sec INR 0.98 (0.80-1.20) Sodium 146 (140-148) mmol/L Potassium 3.8 (3.6-5.2) mmol/L Chloride 104 (100-108) mmol/L Carbon Dioxide 27 (21-32) mmol/L Anion Gap 14.9 H (5.0-14.0) mmol/L BUN 18 (7-18) mg/dL Creatinine 1.3 (0.8-1.3) mg/dL Est Cr Clr Drug Dosing 54.81 mL/min Estimated GFR (MDRD) 55 L (>60) Glucose 218 H (74-106) mg/dL Calcium 9.6 (8.5-10.1) mg/dL Magnesium 1.7 L (1.8-2.4) mg/dL Total Bilirubin 0.2 D (0.2-1.0) mg/dL AST 20 (15-37) U/L ALT 51 (12-78) U/L Alkaline Phosphatase 67 (46-116) U/L Total Protein 6.6 (6.4-8.2) g/dL Albumin 3.2 L (3.4-5.0) g/dL Globulin 3.4 (2.3-3.5) g/dL Albumin/Globulin Ratio 0.9 L (1.2-2.2) Blood Type Gel Antibody Screen Crossmatch 12/14/20 12/15/20 12/15/20 Range/Units 20:55 00:05 04:00 WBC 10.4 8.0 (4.5-11.0) K/uL RBC 4.23 L 3.98 L (4.30-5.90) M/uL Hgb 12.4 D 12.1 (12.0-15.0) g/dL Hct 37.4 L 35.3 L (40.0-54.0) % MCV 88 89 (80-98) fL MCH 29 30 (27-31) pg MCHC 33 34 (32-36) % Plt Count 223 200 (150-400) K/uL Neut % (Auto) (36-66) % Lymph % (Auto) (24-44) % [place] % (Auto) (2-6) % Eos % (Auto) (2-4) % Baso % (Auto) (0-1) % PT (9.5-12.0) sec INR (0.80-1.20) Sodium (140-148) mmol/L Potassium (3.6-5.2) mmol/L Chloride (100-108) mmol/L Carbon Dioxide (21-32) mmol/L Anion Gap (5.0-14.0) mmol/L BUN (7-18) mg/dL Creatinine (0.8-1.3) mg/dL Est Cr Clr Drug Dosing mL/min Estimated GFR (MDRD) (>60) Glucose (74-106) mg/dL Calcium (8.5-10.1) mg/dL Magnesium (1.8-2.4) mg/dL Total Bilirubin (0.2-1.0) mg/dL AST (15-37) U/L ALT (12-78) U/L Alkaline Phosphatase (46-116) U/L Total Protein (6.4-8.2) g/dL Albumin (3.4-5.0) g/dL Globulin (2.3-3.5) g/dL Albumin/Globulin Ratio (1.2-2.2) Blood Type O POSITIVE Gel Antibody Screen Negative Crossmatch See Detail 12/15/20 Range/Units 08:05 WBC 7.0 (4.5-11.0) K/uL RBC 3.99 L (4.30-5.90) M/uL Hgb 12.1 (12.0-15.0) g/dL Hct 35.2 L (40.0-54.0) % MCV 88 (80-98) fL MCH 30 (27-31) pg MCHC 34 (32-36) % Plt Count 189 (150-400) K/uL Neut % (Auto) (36-66) % Lymph % (Auto) (24-44) % [place] % (Auto) (2-6) % Eos % (Auto) (2-4) % Baso % (Auto) (0-1) % PT (9.5-12.0) sec INR (0.80-1.20) Sodium (140-148) mmol/L Potassium (3.6-5.2) mmol/L Chloride (100-108) mmol/L Carbon Dioxide (21-32) mmol/L Anion Gap (5.0-14.0) mmol/L BUN (7-18) mg/dL Creatinine (0.8-1.3) mg/dL Est Cr Clr Drug Dosing mL/min Estimated GFR (MDRD) (>60) Glucose (74-106) mg/dL Calcium (8.5-10.1) mg/dL Magnesium (1.8-2.4) mg/dL Total Bilirubin (0.2-1.0) mg/dL AST (15-37) U/L ALT (12-78) U/L Alkaline Phosphatase (46-116) U/L Total Protein (6.4-8.2) g/dL Albumin (3.4-5.0) g/dL Globulin (2.3-3.5) g/dL Albumin/Globulin Ratio (1.2-2.2) Blood Type Gel Antibody Screen Crossmatch Result Diagrams: 12/15/20 08:05 12/14/20 20:40 Sepsis Event Note - Evaluation Sepsis Screening Result: No Definite Risk - Focused Exam Vital Signs: Vital Signs Temp Temp Pulse Pulse Resp BP BP 12/15/20 08:00 36.8 C 11 L 147/82 H 12/15/20 06:00 64 15 133/65 12/15/20 04:00 82 16 139/77 12/15/20 03:39 36.8 C 74 17 120/57 L 12/15/20 03:00 36.5 C 77 74 14 108/58 L 114/58 L 12/15/20 02:39 36.5 C 78 14 108/58 L 12/15/20 02:30 36.5 C 78 15 108/58 L 12/15/20 02:15 76 12 123/70 12/15/20 02:00 82 14 129/78 12/15/20 01:52 36.6 C 81 14 125/70 12/15/20 01:42 36.6 C 85 17 117/63 12/15/20 01:36 36.6 C 90 17 138/69 12/15/20 01:30 36.6 C 83 13 132/78 12/15/20 01:14 36.6 C 83 16 123/68 12/15/20 00:39 75 15 145/83 H 12/14/20 22:56 93 14 144/76 H Pulse Ox 12/15/20 08:00 98 12/15/20 06:00 97 12/15/20 04:00 95 12/15/20 03:39 12/15/20 03:00 96 12/15/20 02:39 95 12/15/20 02:30 96 12/15/20 02:15 96 12/15/20 02:00 94 L 12/15/20 01:52 94 L 12/15/20 01:42 99 12/15/20 01:36 12/15/20 01:30 98 12/15/20 01:14 12/15/20 00:39 94 L 12/14/20 22:56 99 - Problem List Review Problem List Initiated/Reviewed/Updated: Yes - My Orders Last 24 Hours: My Active Orders 12/15/20 08:20 Communication Order [RC] PRN Communication Order [RC] PRN 12/15/20 11:00 Insulin Lispro [HumaLOG] See Protocol SUBCUT QIDACANDBED 12/15/20 21:00 Insulin Glarg,Human.Rec.Analog [LantUS Solostar] 18 units SUBCUT BEDTIME 12/16/20 05:00 BASIC METABOLIC PANEL,BMP [CHEM] Timed CBC W/O DIFF,HEMOGRAM [HEME] Timed (1) - Plan Plan:: ASSESSMENT AND PLAN - Lower gastrointestinal hemorrhage, suspected-bright red blood as well as maroon and clots yesterday at the time of admission. None since. Colonoscopy attempted this morning but there was too much old blood and prep is planned for later in the day with repeat exam tomorrow. EGD was unremarkable. Hemoglobin stable. Vitals stable. -Colonoscopy prep today and repeat colonoscopy tomorrow -Continue PPI for the short-term -Hemoglobin in the morning Insulin-dependent diabetes mellitus-well controlled by history. Moderate elevation of blood sugars probably related to dextrose containing IV fluids. -Saline lock IV -Clear liquids -Continue long-acting insulin at bedtime -Sliding scale insulin Maintenance issues - -DVT prophylaxis-mechanical with active hemorrhage -GI prophylaxis-PPI -Nutrition-clear liquids, nothing by mouth after midnight -[place] catheter-not indicated Disposition -I anticipate discharge home after the hospital stay Thierry Forrester M.D.
[2020-12-15] MEDS ORDERED: Insulin Lispro 100 Unit/ML 3 ML KwikPen SUBCUT ONE (11:40)
[2020-12-15] MEDS ORDERED: Bisacodyl 5 MG Tab PO ONE ×2 (12:00→20:00)
[2020-12-15] MEDS: Pantoprazole 40 MG Tab.CR PO SCH (16:23)
[2020-12-15] MEDS ORDERED: Polyethylene Glycol 3350 Powder 238 GM Bot PO ONE (17:00)
[2020-12-15] MEDS: Insulin Glargine,Human Rec. Analog 100 Units/ML 3 ML Pen SUBCUT SCH (20:24)
[2020-12-15] MEDS: Acetaminophen 325 MG Tab PO PRN (20:49)
[2020-12-15] MEDS: Melatonin 3 MG Tab PO PRN (20:50)
[2020-12-16] MEDS: Insulin Lispro 100 Unit/ML 3 ML KwikPen SUBCUT SCH ×4 (07:29→21:40)
[2020-12-16] MEDS: Pantoprazole 40 MG Tab.CR PO SCH ×2 (07:30→16:16)
[2020-12-16] MEDS ORDERED: Midazolam 1 MG/ML 2 ML SDV ONE (08:10)
[2020-12-16] MEDS ORDERED: fentaNYL 100 MCG/2 ML SDV ONE (08:10)
[2020-12-16] MEDS ORDERED: Propofol 200 MG/20 ML SDV ONE ×2 (08:10→09:07)
[2020-12-16] MEDS: Nicotine 14 MG/24 Hr Patch TRDERM SCH ×2 (10:46→20:38)
--- NOTE | 2020-12-16 11:53 | PCM.PN ---
- General Info Date of Service: 12/16/20 Subjective Update: No acute events overnight. No more bleeding. Patient had a colonoscopy this morning that showed a right colon mass. The plan is for surgical resection tomorrow. No significant abdominal pain at this time. Functional Status: Reports: Pain Controlled - Patient Data Vitals - Most Recent: Last Vital Signs Temp 36.7 C 12/16/20 09:38 Pulse 66 12/16/20 09:30 Resp 18 12/16/20 10:31 BP 148/79 H 12/16/20 10:31 Pulse Ox 98 12/16/20 10:31 Weight - Most Recent: 79.832 kg I&O - Last 24 Hours: Intake & Output 12/15/20 12/16/20 12/16/20 22:59 06:59 14:59 Intake Total 360 75 Output Total 675 Balance -675 360 75 Lab Results Last 24 Hours: Laboratory Results - last 24 hr 12/16/20 12/16/20 Range/Units 05:46 05:46 WBC 5.9 (4.5-11.0) K/uL RBC 4.11 L (4.30-5.90) M/uL Hgb 12.3 (12.0-15.0) g/dL Hct 36.0 L (40.0-54.0) % MCV 88 (80-98) fL MCH 30 (27-31) pg MCHC 34 (32-36) % Plt Count 198 (150-400) K/uL Sodium 146 (140-148) mmol/L Potassium 3.7 (3.6-5.2) mmol/L Chloride 109 H (100-108) mmol/L Carbon Dioxide 26 (21-32) mmol/L Anion Gap 14.7 H (5.0-14.0) mmol/L BUN 9 (7-18) mg/dL Creatinine 1.0 (0.8-1.3) mg/dL Est Cr Clr Drug Dosing 71.25 mL/min Estimated GFR (MDRD) > 60 (>60) Glucose 136 H (74-106) mg/dL Calcium 9.2 (8.5-10.1) mg/dL Akbar Results Last 24 Hours: Microbiology 12/15/20 10:35 CLOtest - Final Stomach NEGATIVE CLOTEST REFERENCE RANGE: NEGATIVE Med Orders - Current: Current Medications Acetaminophen (Acetaminophen 325 Mg Tab) 650 mg PO Q4H PRN PRN Reason: Pain (Mild 1-3)/fever Last Admin: 12/15/20 20:49 Dose: 650 mg Documented by: Alvimopan (Alvimopan 12 Mg Capsule) 12 mg PO ONETIME ONE Stop: 12/17/20 05:31 Dextrose/Water (50% Dextrose In Water 50 Ml Syringe) 50 ml IVPUSH ASDIRECTED PRN PRN Reason: Hypoglycemia Glucagon (Glucagon,Human Recombinant 1 Mg Vial) 1 mg IM ASDIRECTED PRN PRN Reason: Hypoglycemia Promethazine HCl 6.25 mg/ (Sodium Chloride) 50.25 mls @ 200 mls/hr IV Q6H PRN PRN Reason: Nausea/Vomiting Cefoxitin Sodium 2 gm/ Sodium (Chloride) 50 mls @ 100 mls/hr IV ONETIME ONE Stop: 12/17/20 06:59 Dextrose/Lactated Ringer's (Dextrose 5%-Lactated Ringers) 1,000 mls @ 100 mls/hr IV ASDIRECTED [facility] Insulin Glargine (Insulin Glargine,Human Rec. Analog 100 Units/Ml 3 Ml Pen) 18 units SUBCUT BEDTIME [facility] Last Admin: 12/15/20 20:24 Dose: 18 units Documented by: Insulin Human Lispro (Insulin Lispro 100 Unit/Ml 3 Ml Kwikpen) 0 unit SUBCUT QIDACANDBED [facility]; Protocol Last Admin: 12/16/20 07:29 Dose: Not Given Documented by: Melatonin (Melatonin 3 Mg Tab) 9 mg PO BEDTIME PRN PRN Reason: Sleep Last Admin: 12/15/20 20:50 Dose: 9 mg Documented by: Morphine Sulfate (Morphine 2 Mg/Ml Syringe) 2 mg IVPUSH Q2H PRN PRN Reason: Pain Nicotine (Nicotine 14 Mg/24 Hr Patch) 14 mg TRDERM DAILY [facility] Last Admin: 12/16/20 10:46 Dose: Not Given Documented by: Ondansetron HCl (Ondansetron 4 Mg/2 Ml Sdv) 4 mg IV Q4H PRN PRN Reason: Nausea/Vomiting Pantoprazole Sodium (Pantoprazole 40 Mg Tab.Cr) 40 mg PO BIDAC [facility] Last Admin: 12/16/20 07:30 Dose: Not Given Documented by: Zolpidem Tartrate (Zolpidem 5 Mg Tab) 5 mg PO BEDTIME PRN PRN Reason: Sleep Last Admin: 12/14/20 23:16 Dose: 5 mg Documented by: Discontinued Medications Bisacodyl (Bisacodyl 5 Mg Tab) 10 mg PO ONETIME ONE Stop: 12/15/20 12:01 Last Admin: 12/15/20 11:42 Dose: 10 mg Documented by: Bisacodyl (Bisacodyl 5 Mg Tab) 10 mg PO ONETIME ONE Stop: 12/15/20 20:01 Last Admin: 12/15/20 19:24 Dose: 10 mg Documented by: Diphenhydramine HCl (Diphenhydramine 50 Mg/Ml Sdv) 25 mg IVPUSH BEDTIME PRN PRN Reason: Insomnia Fentanyl (Fentanyl 100 Mcg/2 Ml Sdv) Confirm Administered Dose 100 mcg .ROUTE .STK-MED ONE Stop: 12/15/20 09:25 Fentanyl (Fentanyl 100 Mcg/2 Ml Sdv) Confirm Administered Dose 100 mcg .ROUTE .STK-MED ONE Stop: 12/16/20 08:11 Sodium Chloride (Normal Saline) 1,000 mls @ 1,000 mls/hr IV ASDIRECTED [facility] Last Admin: 12/14/20 21:21 Dose: 1,000 mls/hr Documented by: Tranexamic Acid 1,000 mg/ (Sodium Chloride) 60 mls @ 200 mls/hr IV ONETIME ONE Stop: 12/14/20 20:59 Last Admin: 12/14/20 21:21 Dose: 200 mls/hr Documented by: Dextrose/Lactated Ringer's (Dextrose 5%-Lactated Ringers) 1,000 mls @ 150 mls/hr IV ASDIRECTED [facility] Last Admin: 12/15/20 11:27 Dose: 150 mls/hr Documented by: Insulin Glargine (Insulin Glargine,Human Rec. Analog 100 Units/Ml 3 Ml Pen) 8 units SUBCUT DAILY [facility] Insulin Human Lispro (Insulin Lispro 100 Unit/Ml 3 Ml Kwikpen) 0 unit SUBCUT QIDACANDBED [facility]; Protocol Last Admin: 12/15/20 08:35 Dose: Not Given Documented by: Insulin Human Lispro (Insulin Lispro 100 Unit/Ml 3 Ml Kwikpen) 12 unit SUBCUT ONETIME ONE Stop: 12/15/20 11:41 Last Admin: 12/15/20 11:51 Dose: 12 units Documented by: Midazolam HCl (Midazolam 1 Mg/Ml 2 Ml Sdv) Confirm Administered Dose 2 mg .ROUTE .STK-MED ONE Stop: 12/15/20 09:25 Midazolam HCl (Midazolam 1 Mg/Ml 2 Ml Sdv) Confirm Administered Dose 2 mg .ROUTE .STK-MED ONE Stop: 12/16/20 08:11 Pantoprazole Sodium (Pantoprazole 40 Mg Vial) 40 mg IVPUSH Q12H [facility] Last Admin: 12/15/20 09:47 Dose: 40 mg Documented by: Polyethylene Glycol (Polyethylene Glycol 3350 Powder 238 Gm Bot) 238 gm PO ONETIME ONE Stop: 12/15/20 17:01 Last Admin: 12/15/20 16:22 Dose: 238 gm Documented by: Propofol (Propofol 200 Mg/20 Ml Sdv) Confirm Administered Dose 200 mg .ROUTE .STK-MED ONE Stop: 12/15/20 09:25 Propofol (Propofol 200 Mg/20 Ml Sdv) Confirm Administered Dose 200 mg .ROUTE .STK-MED ONE Stop: 12/16/20 08:11 Propofol (Propofol 200 Mg/20 Ml Sdv) Confirm Administered Dose 200 mg .ROUTE .STK-MED ONE Stop: 12/16/20 09:08 - Exam Quality Assessment: No: Supplemental Oxygen General: Alert, Oriented, Cooperative, No Acute Distress Lungs: Normal Respiratory Effort GI/Abdominal Exam: Soft, No Distention Extremities: No Pedal Edema Psy/Mental Status: Alert, Normal Affect - Patient Data Lab Results Last 24 hrs: Laboratory Results - last 24 hr 12/16/20 12/16/20 Range/Units 05:46 05:46 WBC 5.9 (4.5-11.0) K/uL RBC 4.11 L (4.30-5.90) M/uL Hgb 12.3 (12.0-15.0) g/dL Hct 36.0 L (40.0-54.0) % MCV 88 (80-98) fL MCH 30 (27-31) pg MCHC 34 (32-36) % Plt Count 198 (150-400) K/uL Sodium 146 (140-148) mmol/L Potassium 3.7 (3.6-5.2) mmol/L Chloride 109 H (100-108) mmol/L Carbon Dioxide 26 (21-32) mmol/L Anion Gap 14.7 H (5.0-14.0) mmol/L BUN 9 (7-18) mg/dL Creatinine 1.0 (0.8-1.3) mg/dL Est Cr Clr Drug Dosing 71.25 mL/min Estimated GFR (MDRD) > 60 (>60) Glucose 136 H (74-106) mg/dL Calcium 9.2 (8.5-10.1) mg/dL Result Diagrams: 12/16/20 05:46 12/16/20 05:46 Akbar Results Last 24 hrs: Microbiology 12/15/20 10:35 CLOtest - Final Stomach NEGATIVE CLOTEST REFERENCE RANGE: NEGATIVE Sepsis Event Note - Evaluation Sepsis Screening Result: No Definite Risk - Focused Exam Vital Signs: Vital Signs Temp Temp Pulse Resp BP Pulse Ox 12/16/20 10:31 18 148/79 H 98 12/16/20 10:16 13 150/87 H 99 12/16/20 10:01 20 139/88 97 12/16/20 09:46 10 L 134/80 98 12/16/20 09:38 36.7 C 10 L 143/78 H 98 12/16/20 09:30 36.2 C 66 14 121/77 96 12/16/20 09:25 64 14 120/72 95 12/16/20 09:20 63 14 107/65 98 12/16/20 09:15 66 14 107/66 99 12/16/20 09:10 36.1 C 67 14 111/62 99 12/16/20 07:00 36.7 C 15 144/82 H 97 12/16/20 05:48 64 11 L 127/65 99 12/16/20 03:26 56 L 16 115/61 97 12/16/20 02:00 70 12 124/80 98 12/16/20 00:00 74 13 135/72 98 - Problem List Review Problem List Initiated/Reviewed/Updated: Yes - My Orders Last 24 Hours: My Active Orders 12/15/20 11:00 Insulin Lispro [HumaLOG] See Protocol SUBCUT QIDACANDBED 12/15/20 11:41 Melatonin 9 mg PO BEDTIME PRN Convert IV to Saline Lock [OM.PC] Routine 12/15/20 16:30 Pantoprazole [ProTONIX] 40 mg PO BIDAC 12/15/20 21:00 Insulin Glarg,Human.Rec.Analog [LantUS Solostar] 18 units SUBCUT BEDTIME 12/16/20 11:51 Chest Abdomen Pelvis w Cont [CT] Routine - Plan Plan:: ASSESSMENT AND PLAN - Colon cancer-right colon mass leading to lower gastrointestinal hemorrhage. This was discovered today with EGD. Surgical intervention planned tomorrow. -CT chest/abdomen/pelvis for further staging -CEA ordered for tomorrow morning -Surgical intervention per Dr. Au -Continue PPI for the short-term -Hemoglobin in the morning Insulin-dependent diabetes mellitus-well controlled by history. Sugars well co ntrolled. The plan is for D5 LR infusion tonight. -Saline lock IV -Clear liquids today, n.p.o. after midnight -Continue long-acting insulin at bedtime -Sliding scale insulin Maintenance issues - -DVT prophylaxis-mechanical with active hemorrhage -GI prophylaxis-PPI -Nutrition-clear liquids, nothing by mouth after midnight -Haywood catheter-not indicated Disposition -I anticipate discharge home after the hospital stay Thierry Forrester M.D.
[2020-12-16] MEDS ORDERED: Sodium Chloride 0.9% 75 ML IV ONE (12:47)
[2020-12-16] MEDS ORDERED: Iopamidol 612 MG/ML 100 ML Bottle IV PRN (12:47)
[2020-12-16] MEDS ORDERED: Sodium Chloride 0.9% 10 ML Syringe FLUSH PRN (12:47)
--- NOTE | 2020-12-16 14:58 | CT ---
Chest Abdomen Pelvis w Cont CLINICAL HISTORY: Colon mass, cancer staging TECHNIQUE: Transverse scans were obtained from the thoracic inlet to the lung bases with IV contrast. Auto dose reduction and iterative reconstruction techniques were employed COMPARISONS: None FINDINGS: Lung window images show no pulmonary masses or infiltrates. Soft tissue window images show no mediastinal mass or suspicious lymphadenopathy. There are no pleural effusions. CT ABDOMEN AND PEVIS WITH IV CONTRAST COMPARISON: None TECHNIQUE: Axial tomographic images are obtained from the dome of the diaphragm to the iliac crest with IV contrast enhancement. Oral contrast was used. FINDINGS: The livershows no mass or biliary dilatation. The gallbladder contains multiple large stones. The spleen has a normal size and shape. The pancreas shows no mass or inflammatory change. The adrenal glands appear normal bilaterally. The kidneys contain multiple cysts. Largest on the right measures 2.4 x 1.5 cm. There are multiple subcentimeter cysts. Largest on the left measures 1.8 x 1.9 cm. There are no stones or hydronephrosis. There is a retroaortic left renal vein. The ureters have a normal course and caliber. The bladder has normal contour. There is mild prosthetic enlargement.. There is mild atheromatous plaque in the aorta. No suspicious retroperitoneal lymphadenopathy is identified. The small intestinal configuration is nonacute. There is gas and feces throughout the colon. There is some soft tissue fullness near the ileocecal valve. IMPRESSION: Cholelithiasis Multiple renal cysts. This should be correlated with renal ultrasound to better characterize. There is some soft tissue fullness in the region of the ileocecal valve with some redundant stool-filled colon. This evaluation is limited. History states colon mass but, location was not specified.
[2020-12-16] MEDS: Acetaminophen 325 MG Tab PO PRN (15:39)
[2020-12-16 17:02] LABS: CORONAVIRUS COVID-19 NAA NEGATIVE (NEGATIVE)
[2020-12-16] MEDS ORDERED: Dextrose 5%-Lactated Ringers 1,000 ML IV SCH (20:00)
[2020-12-16] MEDS: Melatonin 3 MG Tab PO PRN (20:38)
[2020-12-16] MEDS: Insulin Glargine,Human Rec. Analog 100 Units/ML 3 ML Pen SUBCUT SCH (21:39)
[2020-12-17] MEDS ORDERED: cefOXitin 2 GM in Sodium Chloride 0.9% 50 ML IV ONE ×2 (05:30→06:30)
[2020-12-17] MEDS ORDERED: Meropenem 500 MG SDV ONE (06:16)
[2020-12-17] MEDS ORDERED: Naloxone 0.4 MG/ML SDV IVPUSH PRN (06:30)
[2020-12-17] MEDS ORDERED: Glycopyrrolate 0.2 MG/ML 5 ML MDV ONE (06:43)
[2020-12-17] MEDS ORDERED: Dexamethasone 4 MG/ML SDV ONE (06:43)
[2020-12-17] MEDS ORDERED: Rocuronium 50 MG/5 ML Vial ONE (06:43)
[2020-12-17] MEDS ORDERED: Neostigmine Methylsulfate 1 MG/ML 5 ML Syringe ONE (06:43)
[2020-12-17] MEDS ORDERED: Ondansetron 4 MG/2 ML SDV ONE (06:43)
[2020-12-17] MEDS ORDERED: Sodium Chloride 0.9% 10 ML ONE (06:43)
[2020-12-17] MEDS ORDERED: Propofol 200 MG/20 ML SDV ONE (06:43)
[2020-12-17] MEDS ORDERED: fentaNYL 250 MCG/5 ML SDV ONE (06:43)
[2020-12-17] MEDS ORDERED: fentaNYL 100 MCG/2 ML SDV ONE (06:55)
[2020-12-17] MEDS ORDERED: Midazolam 1 MG/ML 2 ML SDV ONE (06:57)
[2020-12-17] MEDS ORDERED: Lactated Ringers 1,000 ML ONE (07:54)
[2020-12-17] MEDS ORDERED: Bupivacaine 0.5% 50 ML MDV ONE (07:57)
[2020-12-17] MEDS ORDERED: Lidocaine 1% with EPINEPHrine 1:100,000 50 ML MDV ONE (07:57)
[2020-12-17] MEDS ORDERED: Scopolamine 1.5 MG Transdermal Patch TOP ONE (08:58)
[2020-12-17] MEDS ORDERED: Acetaminophen 1,000 MG in Premix Bag 1 BAG IV ONE (09:00)
[2020-12-17] MEDS ORDERED: hydrOXYzine HCL 100 MG/2 ML SDV IM PRN (10:22)
[2020-12-17] MEDS ORDERED: Ondansetron 4 MG/2 ML SDV IVPUSH PRN (10:22)
[2020-12-17] MEDS: Lactated Ringers 1,000 ML IV SCH ×3 (10:32→22:36)
--- NOTE | 2020-12-17 10:35 | PCM.PN ---
- General Info Date of Service: 12/17/20 Subjective Update: No acute events overnight. Patient had an uneventful right colectomy this morning. Vitals have been stable after surgery. He is reporting moderate abdominal pain. No nausea. - Patient Data Vitals - Most Recent: Last Vital Signs Temp 36.2 C 12/17/20 10:15 Pulse 83 12/17/20 10:15 Resp 16 12/17/20 10:15 BP 156/119 H 12/17/20 10:15 Pulse Ox 98 12/17/20 10:15 Weight - Most Recent: 79.832 kg I&O - Last 24 Hours: Intake & Output 12/16/20 12/17/20 12/17/20 22:59 06:59 14:59 Intake Total 500 800 175 Output Total 1475 460 Balance 500 -195 -285 Lab Results Last 24 Hours: Laboratory Results - last 24 hr 12/16/20 12/16/20 12/16/20 Range/Units 16:16 17:04 20:59 WBC (4.5-11.0) K/uL RBC (4.30-5.90) M/uL Hgb (12.0-15.0) g/dL Hct (40.0-54.0) % MCV (80-98) fL MCH (27-31) pg MCHC (32-36) % Plt Count (150-400) K/uL Sodium (140-148) mmol/L Potassium (3.6-5.2) mmol/L Chloride (100-108) mmol/L Carbon Dioxide (21-32) mmol/L Anion Gap (5.0-14.0) mmol/L BUN (7-18) mg/dL Creatinine (0.8-1.3) mg/dL Est Cr Clr Drug Dosing mL/min Estimated GFR (MDRD) (>60) Glucose (74-106) mg/dL POC Glucose 123 H 244 H (74-106) MG/DL Calcium (8.5-10.1) mg/dL Phosphorus (2.5-4.9) mg/dL Magnesium (1.8-2.4) mg/dL Total Bilirubin (0.2-1.0) mg/dL AST (15-37) U/L ALT (12-78) U/L Alkaline Phosphatase (46-116) U/L Total Protein (6.4-8.2) g/dL Albumin (3.4-5.0) g/dL Globulin (2.3-3.5) g/dL Albumin/Globulin Ratio (1.2-2.2) Influenza Type A RNA Negative (NEGATIVE) RSV RNA (INAAT) Negative (NEGATIVE) Influenza Type B RNA Negative (NEGATIVE) SARS-CoV-2 RNA (ALMA) Negative (NEGATIVE) 12/17/20 12/17/20 Range/Units 04:05 04:05 WBC 6.1 (4.5-11.0) K/uL RBC 4.15 L (4.30-5.90) M/uL Hgb 12.3 (12.0-15.0) g/dL Hct 36.5 L (40.0-54.0) % MCV 88 (80-98) fL MCH 30 (27-31) pg MCHC 34 (32-36) % Plt Count 201 (150-400) K/uL Sodium 148 (140-148) mmol/L Potassium 3.5 L (3.6-5.2) mmol/L Chloride 107 (100-108) mmol/L Carbon Dioxide 30 (21-32) mmol/L Anion Gap 14.5 H (5.0-14.0) mmol/L BUN 7 (7-18) mg/dL Creatinine 1.0 (0.8-1.3) mg/dL Est Cr Clr Drug Dosing 71.25 mL/min Estimated GFR (MDRD) > 60 (>60) Glucose 156 H (74-106) mg/dL POC Glucose (74-106) MG/DL Calcium 8.8 (8.5-10.1) mg/dL Phosphorus 3.9 (2.5-4.9) mg/dL Magnesium 1.5 L (1.8-2.4) mg/dL Total Bilirubin 0.4 D (0.2-1.0) mg/dL AST 26 (15-37) U/L ALT 57 (12-78) U/L Alkaline Phosphatase 57 (46-116) U/L Total Protein 5.8 L (6.4-8.2) g/dL Albumin 3.1 L (3.4-5.0) g/dL Globulin 2.7 (2.3-3.5) g/dL Albumin/Globulin Ratio 1.2 (1.2-2.2) Influenza Type A RNA (NEGATIVE) RSV RNA (INAAT) (NEGATIVE) Influenza Type B RNA (NEGATIVE) SARS-CoV-2 RNA (ALMA) (NEGATIVE) Akbar Results Last 24 Hours: Microbiology 12/15/20 10:35 CLOtest - Final Stomach NEGATIVE CLOTEST REFERENCE RANGE: NEGATIVE Med Orders - Current: Current Medications Acetaminophen (Acetaminophen 500 Mg Tab) 1,000 mg PO Q6H [facility] Alvimopan (Alvimopan 12 Mg Capsule) 12 mg PO Q12H [facility] Stop: 12/24/20 08:01 Bisacodyl (Bisacodyl 5 Mg Tab) 10 mg PO BID [facility] Hydroxyzine HCl (Hydroxyzine Hcl 100 Mg/2 Ml Sdv) 100 mg IM Q4H PRN PRN Reason: BREAKTHROUGH PAIN Fentanyl 2,500 mcg/ Sodium (Chloride) 250 mls @ 0 mls/hr EPIDUR TITRATE [facility]; Protocol Lactated Ringer's (Ringers, Lactated) 1,000 mls @ 175 mls/hr IV ASDIRECTED [facility] Last Admin: 12/17/20 10:32 Dose: 175 mls/hr Documented by: Cefoxitin Sodium 2 gm/ Sodium (Chloride) 50 mls @ 100 mls/hr IV Q6H [facility] Stop: 12/18/20 10:59 Naloxone HCl (Naloxone 0.4 Mg/Ml Sdv) 0.1 mg IVPUSH Q5M PRN PRN Reason: RESP RATE LESS THAN 6/MINUTE Ondansetron HCl (Ondansetron 4 Mg/2 Ml Sdv) 4 mg IVPUSH Q4H PRN PRN Reason: Nausea Pantoprazole Sodium (Pantoprazole 40 Mg Vial) 40 mg IV Q24H [facility] Senna (Sennosides 8.6 Mg Tab) 17.2 mg PO DAILY [facility] Tamsulosin HCl (Tamsulosin 0.4 Mg Cap.Er) 0.4 mg PO BEDTIME [facility] Discontinued Medications Acetaminophen (Acetaminophen 325 Mg Tab) 650 mg PO Q4H PRN PRN Reason: Pain (Mild 1-3)/fever Last Admin: 12/16/20 15:39 Dose: 650 mg Documented by: Alvimopan (Alvimopan 12 Mg Capsule) 12 mg PO ONETIME ONE Stop: 12/17/20 05:31 Last Admin: 12/17/20 04:35 Dose: 12 mg Documented by: Bisacodyl (Bisacodyl 5 Mg Tab) 10 mg PO ONETIME ONE Stop: 12/15/20 12:01 Last Admin: 12/15/20 11:42 Dose: 10 mg Documented by: Bisacodyl (Bisacodyl 5 Mg Tab) 10 mg PO ONETIME ONE Stop: 12/15/20 20:01 Last Admin: 12/15/20 19:24 Dose: 10 mg Documented by: Bupivacaine HCl (Bupivacaine 0.5% 50 Ml Mdv) Confirm Administered Dose 50 ml .ROUTE .STK-MED ONE Stop: 12/17/20 07:58 Dexamethasone (Dexamethasone 4 Mg/Ml Sdv) Confirm Administered Dose 4 mg .ROUTE .STK-MED ONE Stop: 12/17/20 06:44 Dextrose/Water (50% Dextrose In Water 50 Ml Syringe) 50 ml IVPUSH ASDIRECTED PRN PRN Reason: Hypoglycemia Diphenhydramine HCl (Diphenhydramine 50 Mg/Ml Sdv) 25 mg IVPUSH BEDTIME PRN PRN Reason: Insomnia Fentanyl (Fentanyl 100 Mcg/2 Ml Sdv) Confirm Administered Dose 100 mcg .ROUTE .STK-MED ONE Stop: 12/15/20 09:25 Fentanyl (Fentanyl 100 Mcg/2 Ml Sdv) Confirm Administered Dose 100 mcg .ROUTE .STK-MED ONE Stop: 12/16/20 08:11 Fentanyl (Fentanyl 250 Mcg/5 Ml Sdv) Confirm Administered Dose 250 mcg .ROUTE .STK-MED ONE Stop: 12/17/20 06:44 Fentanyl (Fentanyl 100 Mcg/2 Ml Sdv) Confirm Administered Dose 100 mcg .ROUTE .STK-MED ONE Stop: 12/17/20 06:56 Glucagon (Glucagon,Human Recombinant 1 Mg Vial) 1 mg IM ASDIRECTED PRN PRN Reason: Hypoglycemia Glycopyrrolate (Glycopyrrolate 0.2 Mg/Ml 5 Ml Mdv) Confirm Administered Dose 1 mg .ROUTE .STK-MED ONE Stop: 12/17/20 06:44 Sodium Chloride (Normal Saline) 1,000 mls @ 1,000 mls/hr IV ASDIRECTED [facility] Last Admin: 12/14/20 21:21 Dose: 1,000 mls/hr Documented by: Tranexamic Acid 1,000 mg/ (Sodium Chloride) 60 mls @ 200 mls/hr IV ONETIME ONE Stop: 12/14/20 20:59 Last Admin: 12/14/20 21:21 Dose: 200 mls/hr Documented by: Promethazine HCl 6.25 mg/ (Sodium Chloride) 50.25 mls @ 200 mls/hr IV Q6H PRN PRN Reason: Nausea/Vomiting Dextrose/Lactated Ringer's (Dextrose 5%-Lactated Ringers) 1,000 mls @ 150 mls/hr IV ASDIRECTED [facility] Last Admin: 12/15/20 11:27 Dose: 150 mls/hr Documented by: Dextrose/Lactated Ringer's (Dextrose 5%-Lactated Ringers) 1,000 mls @ 100 mls/hr IV ASDIRECTED [facility] Last Admin: 12/16/20 22:43 Dose: 100 mls/hr Documented by: Sodium Chloride (Normal Saline) 75 mls @ 3 mls/sec IV ONETIME ONE Stop: 12/16/20 12:48 Last Admin: 12/16/20 13:03 Dose: 3 mls/sec Documented by: Cefoxitin Sodium 2 gm/ Sodium (Chloride) 50 mls @ 100 mls/hr IV ONETIME ONE Stop: 12/17/20 05:59 Last Admin: 12/17/20 04:35 Dose: 100 mls/hr Documented by: Sodium Chloride (Normal Saline) Confirm Administered Dose 10 mls @ as directed . ROUTE .STK-MED ONE Stop: 12/17/20 06:44 Lactated Ringer's (Ringers, Lactated) Confirm Administered Dose 1,000 mls @ as directed .ROUTE .STK-MED ONE Stop: 12/17/20 07:55 Acetaminophen 1,000 mg/ Premix 100 mls @ 400 mls/hr IV ONETIME ONE Stop: 12/17/20 09:14 Last Admin: 12/17/20 09:09 Dose: 400 mls/hr Documented by: Insulin Glargine (Insulin Glargine,Human Rec. Analog 100 Units/Ml 3 Ml Pen) 8 units SUBCUT DAILY [facility] Insulin Glargine (Insulin Glargine,Human Rec. Analog 100 Units/Ml 3 Ml Pen) 18 units SUBCUT BEDTIME [facility] Last Admin: 12/16/20 21:39 Dose: 18 units Documented by: Insulin Human Lispro (Insulin Lispro 100 Unit/Ml 3 Ml Kwikpen) 0 unit SUBCUT QIDACANDBED [facility]; Protocol Last Admin: 12/15/20 08:35 Dose: Not Given Documented by: Insulin Human Lispro (Insulin Lispro 100 Unit/Ml 3 Ml Kwikpen) 0 unit SUBCUT QIDACANDBED [facility]; Protocol Last Admin: 12/16/20 21:40 Dose: 4 units Documented by: Insulin Human Lispro (Insulin Lispro 100 Unit/Ml 3 Ml Kwikpen) 12 unit SUBCUT ONETIME ONE Stop: 12/15/20 11:41 Last Admin: 12/15/20 11:51 Dose: 12 units Documented by: Iopamidol (Iopamidol 612 Mg/Ml 100 Ml Bottle) 100 ml IV . DIRECTED PRN PRN Reason: RADIOLOGY EXAM Stop: 12/16/20 12:48 Last Admin: 12/16/20 13:03 Dose: 100 ml Documented by: Lidocaine/Epinephrine (Lidocaine 1% With Epinephrine 1:100,000 50 Ml Mdv) Confirm Administered Dose 50 ml .ROUTE .STK-MED ONE Stop: 12/17/20 07:58 Melatonin (Melatonin 3 Mg Tab) 9 mg PO BEDTIME PRN PRN Reason: Sleep Last Admin: 12/16/20 20:38 Dose: 9 mg Documented by: Meropenem (Meropenem 500 Mg Sdv) Confirm Administered Dose 500 mg .ROUTE .STK- MED ONE Stop: 12/17/20 06:17 Last Admin: 12/17/20 07:55 Dose: 500 mg Documented by: Midazolam HCl (Midazolam 1 Mg/Ml 2 Ml Sdv) Confirm Administered Dose 2 mg .ROUTE .STK-MED ONE Stop: 12/15/20 09:25 Midazolam HCl (Midazolam 1 Mg/Ml 2 Ml Sdv) Confirm Administered Dose 2 mg .ROUTE .STK-MED ONE Stop: 12/16/20 08:11 Midazolam HCl (Midazolam 1 Mg/Ml 2 Ml Sdv) Confirm Administered Dose 2 mg .ROUTE .STK-MED ONE Stop: 12/17/20 06:58 Morphine Sulfate (Morphine 2 Mg/Ml Syringe) 2 mg IVPUSH Q2H PRN PRN Reason: Pain Neostigmine Methylsulfate (Neostigmine Methylsulfate 1 Mg/Ml 5 Ml Syringe) Confirm Administered Dose 5 mg .ROUTE .STK-MED ONE Stop: 12/17/20 06:44 Nicotine (Nicotine 14 Mg/24 Hr Patch) 14 mg TRDERM DAILY [facility] Last Admin: 12/16/20 20:38 Dose: 14 mg Documented by: Ondansetron HCl (Ondansetron 4 Mg/2 Ml Sdv) 4 mg IV Q4H PRN PRN Reason: Nausea/Vomiting Ondansetron HCl (Ondansetron 4 Mg/2 Ml Sdv) Confirm Administered Dose 4 mg .ROUTE .STK-MED ONE Stop: 12/17/20 06:44 Pantoprazole Sodium (Pantoprazole 40 Mg Vial) 40 mg IVPUSH Q12H [facility] Last Admin: 12/15/20 09:47 Dose: 40 mg Documented by: Pantoprazole Sodium (Pantoprazole 40 Mg Tab.Cr) 40 mg PO BIDAC [facility] Last Admin: 12/16/20 16:16 Dose: 40 mg Documented by: Polyethylene Glycol (Polyethylene Glycol 3350 Powder 238 Gm Bot) 238 gm PO ONETIME ONE Stop: 12/15/20 17:01 Last Admin: 12/15/20 16:22 Dose: 238 gm Documented by: Propofol (Propofol 200 Mg/20 Ml Sdv) Confirm Administered Dose 200 mg .ROUTE .STK-MED ONE Stop: 12/15/20 09:25 Propofol (Propofol 200 Mg/20 Ml Sdv) Confirm Administered Dose 200 mg .ROUTE .STK-MED ONE Stop: 12/16/20 08:11 Propofol (Propofol 200 Mg/20 Ml Sdv) Confirm Administered Dose 200 mg .ROUTE .STK-MED ONE Stop: 12/16/20 09:08 Propofol (Propofol 200 Mg/20 Ml Sdv) Confirm Administered Dose 200 mg .ROUTE .STK-MED ONE Stop: 12/17/20 06:44 Rocuronium [place] (Rocuronium 50 Mg/5 Ml Vial) Confirm Administered Dose 50 mg .ROUTE .STK-MED ONE Stop: 12/17/20 06:44 Scopolamine (Scopolamine 1.5 Mg Transdermal Patch) 1.5 mg TOP ONETIME ONE Stop: 12/17/20 08:59 Last Admin: 12/17/20 09:04 Dose: 1.5 mg Documented by: Sodium Chloride (Sodium Chloride 0.9% 10 Ml Syringe) 10 ml FLUSH ONETIME PRN PRN Reason: PER RADIOLOGY PROTOCOL Stop: 12/16/20 12:48 Last Admin: 12/16/20 13:03 Dose: 10 ml Documented by: Zolpidem Tartrate (Zolpidem 5 Mg Tab) 5 mg PO BEDTIME PRN PRN Reason: Sleep Last Admin: 12/14/20 23:16 Dose: 5 mg Documented by: - Exam Quality Assessment: No: Supplemental Oxygen General: Alert, Oriented, Cooperative, No Acute Distress Lungs: Normal Respiratory Effort Cardiovascular: Regular Rate, Regular Rhythm GI/Abdominal Exam: Soft, No Distention Extremities: No Pedal Edema Psy/Mental Status: Alert, Normal Affect - Patient Data Lab Results Last 24 hrs: Laboratory Results - last 24 hr 12/16/20 12/16/20 12/16/20 Range/Units 16:16 17:04 20:59 WBC (4.5-11.0) K/uL RBC (4.30-5.90) M/uL Hgb (12.0-15.0) g/dL Hct (40.0-54.0) % MCV (80-98) fL MCH (27-31) pg MCHC (32-36) % Plt Count (150-400) K/uL Sodium (140-148) mmol/L Potassium (3.6-5.2) mmol/L Chloride (100-108) mmol/L Carbon Dioxide (21-32) mmol/L Anion Gap (5.0-14.0) mmol/L BUN (7-18) mg/dL Creatinine (0.8-1.3) mg/dL Est Cr Clr Drug Dosing mL/min Estimated GFR (MDRD) (>60) Glucose (74-106) mg/dL POC Glucose 123 H 244 H (74-106) MG/DL Calcium (8.5-10.1) mg/dL Phosphorus (2.5-4.9) mg/dL Magnesium (1.8-2.4) mg/dL Total Bilirubin (0.2-1.0) mg/dL AST (15-37) U/L ALT (12-78) U/L Alkaline Phosphatase (46-116) U/L Total Protein (6.4-8.2) g/dL Albumin (3.4-5.0) g/dL Globulin (2.3-3.5) g/dL Albumin/Globulin Ratio (1.2-2.2) Influenza Type A RNA Negative (NEGATIVE) RSV RNA (INAAT) Negative (NEGATIVE) Influenza Type B RNA Negative (NEGATIVE) SARS-CoV-2 RNA (ALMA) Negative (NEGATIVE) 12/17/20 12/17/20 Range/Units 04:05 04:05 WBC 6.1 (4.5-11.0) K/uL RBC 4.15 L (4.30-5.90) M/uL Hgb 12.3 (12.0-15.0) g/dL Hct 36.5 L (40.0-54.0) % MCV 88 (80-98) fL MCH 30 (27-31) pg MCHC 34 (32-36) % Plt Count 201 (150-400) K/uL Sodium 148 (140-148) mmol/L Potassium 3.5 L (3.6-5.2) mmol/L Chloride 107 (100-108) mmol/L Carbon Dioxide 30 (21-32) mmol/L Anion Gap 14.5 H (5.0-14.0) mmol/L BUN 7 (7-18) mg/dL Creatinine 1.0 (0.8-1.3) mg/dL Est Cr Clr Drug Dosing 71.25 mL/min Estimated GFR (MDRD) > 60 (>60) Glucose 156 H (74-106) mg/dL POC Glucose (74-106) MG/DL Calcium 8.8 (8.5-10.1) mg/dL Phosphorus 3.9 (2.5-4.9) mg/dL Magnesium 1.5 L (1.8-2.4) mg/dL Total Bilirubin 0.4 D (0.2-1.0) mg/dL AST 26 (15-37) U/L ALT 57 (12-78) U/L Alkaline Phosphatase 57 (46-116) U/L Total Protein 5.8 L (6.4-8.2) g/dL Albumin 3.1 L (3.4-5.0) g/dL Globulin 2.7 (2.3-3.5) g/dL Albumin/Globulin Ratio 1.2 (1.2-2.2) Influenza Type A RNA (NEGATIVE) RSV RNA (INAAT) (NEGATIVE) Influenza Type B RNA (NEGATIVE) SARS-CoV-2 RNA (ALMA) (NEGATIVE) Result Diagrams: 12/17/20 04:05 12/17/20 04:05 Akbar Results Last 24 hrs: Microbiology 12/15/20 10:35 CLOtest - Final Stomach NEGATIVE CLOTEST REFERENCE RANGE: NEGATIVE Sepsis Event Note - Evaluation Sepsis Screening Result: No Definite Risk - Focused Exam Vital Signs: Vital Signs Temp Temp Pulse Pulse Resp BP Pulse Ox 12/17/20 10:15 36.2 C 83 16 156/119 H 98 12/17/20 10:00 16 163/88 H 12/17/20 09:45 35.6 C L 89 16 174/78 H 94 L 12/17/20 09:30 36.2 C 79 14 160/88 H 95 12/17/20 09:25 76 14 161/87 H 95 12/17/20 09:20 77 14 170/88 H 96 12/17/20 09:15 36.4 C 75 14 179/96 H 97 12/17/20 09:10 71 14 166/96 H 97 12/17/20 09:05 69 14 165/85 H 97 12/17/20 09:00 36.3 C 69 177/92 H 98 12/17/20 08:55 66 14 156/85 H 99 12/17/20 08:50 68 14 164/87 H 98 12/17/20 08:45 36.4 C 67 14 155/86 H 97 12/17/20 04:31 36.2 C 88 16 148/79 H 98 12/17/20 00:55 97 12/16/20 22:59 97 - Problem List Review Problem List Initiated/Reviewed/Updated: Yes - My Orders Last 24 Hours: My Active Orders 12/16/20 11:55 Transfer Patient (Change bed) [ADT] Routine 12/17/20 11:30 GLUCOSE POC LAB TO COLLECT JPM [POC] QIDACANDBED 12/17/20 16:30 GLUCOSE POC LAB TO COLLECT JPM [POC] QIDACANDBED 12/17/20 21:00 GLUCOSE POC LAB TO COLLECT JPM [POC] QIDACANDBED 12/18/20 07:30 GLUCOSE POC LAB TO COLLECT JPM [POC] QIDACANDBED 12/18/20 11:30 GLUCOSE POC LAB TO COLLECT JPM [POC] QIDACANDBED 12/18/20 16:30 GLUCOSE POC LAB TO COLLECT JPM [POC] QIDACANDBED 12/18/20 21:00 GLUCOSE POC LAB TO COLLECT JPM [POC] QIDACANDBED 12/19/20 07:30 GLUCOSE POC LAB TO COLLECT JPM [POC] QIDACANDBED 12/19/20 11:30 GLUCOSE POC LAB TO COLLECT JPM [POC] QIDACANDBED 12/19/20 16:30 GLUCOSE POC LAB TO COLLECT JPM [POC] QIDACANDBED 12/19/20 21:00 GLUCOSE POC LAB TO COLLECT JPM [POC] QIDACANDBED 12/20/20 07:30 GLUCOSE POC LAB TO COLLECT JPM [POC] QIDACANDBED 12/20/20 11:30 GLUCOSE POC LAB TO COLLECT JPM [POC] QIDACANDBED - Plan Plan:: ASSESSMENT AND PLAN - Colon cancer-right colon mass leading to lower gastrointestinal hemorrhage. Status post right colectomy on 12/17. Doing well postoperatively. CT scan of the chest, abdomen and pelvis did not show any evidence for metastatic disease. hemoglobin has been stable. -CEA pending -Surgical follow-up per Dr. Au -Continue PPI for the short-term -Hemoglobin in the morning Insulin-dependent diabetes mellitus-well controlled by history. Sugars well controlled. -Saline lock IV -Clear liquids today -Continue long-acting insulin at bedtime -Sliding scale insulin Maintenance issues - -DVT prophylaxis-mechanical with recent hemorrhage -GI prophylaxis-PPI -Nutrition-clear liquids -Haywood catheter-not indicated Disposition -I anticipate discharge home after the hospital stay Thierry Forrester M.D.
[2020-12-17] MEDS ORDERED: Naloxone 0.4 MG/ML SDV IV PRN (11:00)
[2020-12-17] MEDS ORDERED: diphenhydrAMINE 50 MG/ML SDV IVPUSH PRN ×2 (11:00)
[2020-12-17] MEDS: cefOXitin 2 GM in Sodium Chloride 0.9% 50 ML IV SCH ×3 (11:36→22:36)
[2020-12-17] MEDS: Pantoprazole 40 MG Vial IV SCH (11:36)
[2020-12-17] MEDS: SCOPOLAMINE PATCH CHECK TOP SCH (11:40)
[2020-12-17] MEDS: Acetaminophen 500 MG Tab PO SCH ×3 (11:46→23:54)
[2020-12-17] MEDS ORDERED: Glucagon,Human Recombinant 1 MG Vial IM PRN (12:29)
[2020-12-17] MEDS ORDERED: 50% Dextrose in Water 50 ML Syringe IVPUSH PRN (12:30)
[2020-12-17] MEDS: Insulin Lispro 100 Unit/ML 3 ML KwikPen SUBCUT SCH ×4 (12:50→21:33)
--- NOTE | 2020-12-17 14:51 | PN ---
DATE OF SERVICE: 12/17/2020 SUBJECTIVE: Kain Bryson is n.p.o. He will be having a colon resection for a rectal mass today. He has no questions or concerns. OBJECTIVE: GENERAL: Kain Bryson is a pleasant 65-year-old male. VITAL SIGNS: TPR is 97.2, 88, 16, blood pressure 148/79. HEART: Regular rate and rhythm. LUNGS: Clear. ASSESSMENT: 1. Rectal bleeding. 2. Rectal mass. PLAN: Orders to be written after surgery per Jude Au MD. Dorothy Boothe PA-C /[id number]
[2020-12-17] MEDS: Tamsulosin 0.4 MG Cap.ER PO SCH (21:13)
[2020-12-17] MEDS: Nicotine 14 MG/24 Hr Patch TRDERM SCH (21:33)
[2020-12-17] MEDS: Pantoprazole 40 MG Tab.CR PO SCH (21:33)
[2020-12-18] MEDS: cefOXitin 2 GM in Sodium Chloride 0.9% 50 ML IV SCH ×2 (03:47→10:34)
[2020-12-18] MEDS: fentaNYL 2,500 MCG in Sodium Chloride 0.9% 200 ML EPIDUR SCH (05:08)
[2020-12-18] MEDS: Acetaminophen 500 MG Tab PO SCH ×4 (05:12→23:23)
[2020-12-18] MEDS: Lactated Ringers 1,000 ML IV SCH (05:27)
[2020-12-18] MEDS ORDERED: Lactated Ringers 1,000 ML IV SCH ×3 (07:45→21:00)
[2020-12-18] MEDS: Naproxen 250 MG Tab PO SCH ×2 (08:45→17:54)
[2020-12-18] MEDS: Sennosides 8.6 MG Tab PO SCH (08:45)
[2020-12-18] MEDS: metFORMIN 500 MG Tab PO SCH ×2 (08:45→17:54)
[2020-12-18] MEDS: Lisinopril 20 MG Tab PO SCH (08:45)
[2020-12-18] MEDS: Bisacodyl 5 MG Tab PO SCH ×2 (08:46→21:08)
[2020-12-18] MEDS: Insulin Lispro 100 Unit/ML 3 ML KwikPen SUBCUT SCH ×4 (08:49→21:29)
[2020-12-18] MEDS: SCOPOLAMINE PATCH CHECK TOP SCH (10:26)
[2020-12-18] MEDS: Magnesium Sulfate/Water 2 GM/50 ML BAG IV SCH ×3 (10:27→21:30)
[2020-12-18] MEDS: Pantoprazole 40 MG Vial IV SCH (11:53)
--- NOTE | 2020-12-18 13:40 | PCM.PN ---
- General Info Date of Service: 12/18/20 Subjective Update: There were no acute events overnight. Pain is fairly well controlled. He has been up and walking around. Heart rate noted to be slightly fast with activity throughout the day. Mild hypoxia with activity that rebounds quickly. No fevers. Tolerating diet so far. Functional Status: Reports: Pain Controlled, Tolerating Diet - Review of Systems General: Denies: Fever Gastrointestinal: Reports: Abdominal Pain - Patient Data Vitals - Most Recent: Last Vital Signs Temp 35.8 C L 12/18/20 10:50 Pulse 84 12/18/20 10:50 Resp 18 12/18/20 10:50 BP 94/75 12/18/20 10:50 Pulse Ox 93 L 12/18/20 12:54 Weight - Most Recent: 79.832 kg I&O - Last 24 Hours: Intake & Output 12/17/20 12/18/20 12/18/20 22:59 06:59 14:59 Intake Total 2394 1851 1612 Output Total 950 1080 Balance 8213 230 3158 Lab Results Last 24 Hours: Laboratory Results - last 24 hr 12/14/20 12/17/20 12/17/20 Range/Units 20:55 04:05 16:28 WBC (4.5-11.0) K/uL RBC (4.30-5.90) M/uL Hgb (12.0-15.0) g/dL Hct (40.0-54.0) % MCV (80-98) fL MCH (27-31) pg MCHC (32-36) % Plt Count (150-400) K/uL Sodium (140-148) mmol/L Potassium (3.6-5.2) mmol/L Chloride (100-108) mmol/L Carbon Dioxide (21-32) mmol/L Anion Gap (5.0-14.0) mmol/L BUN (7-18) mg/dL Creatinine (0.8-1.3) mg/dL Est Cr Clr Drug Dosing mL/min Estimated GFR (MDRD) (>60) Glucose (74-106) mg/dL POC Glucose 268 H (74-106) MG/DL Calcium (8.5-10.1) mg/dL Magnesium (1.8-2.4) mg/dL Total Bilirubin (0.2-1.0) mg/dL AST (15-37) U/L ALT (12-78) U/L Alkaline Phosphatase (46-116) U/L NT-Pro-B Natriuret Pep (5-125) pg/mL Total Protein (6.4-8.2) g/dL Albumin (3.4-5.0) g/dL Globulin (2.3-3.5) g/dL Albumin/Globulin Ratio (1.2-2.2) Carcinoembryonic Ag 3.7 (0.0-4.7) ng/mL Crossmatch See Detail 12/17/20 12/18/20 12/18/20 Range/Units 21:01 04:36 04:36 WBC 11.3 H (4.5-11.0) K/uL RBC 3.84 L (4.30-5.90) M/uL Hgb 11.5 L (12.0-15.0) g/dL Hct 34.4 L (40.0-54.0) % MCV 90 (80-98) fL MCH 30 (27-31) pg MCHC 33 (32-36) % Plt Count 241 (150-400) K/uL Sodium 145 (140-148) mmol/L Potassium 4.1 (3.6-5.2) mmol/L Chloride 107 (100-108) mmol/L Carbon Dioxide 29 (21-32) mmol/L Anion Gap 9.3 (5.0-14.0) mmol/L BUN 7 (7-18) mg/dL Creatinine 1.3 (0.8-1.3) mg/dL Est Cr Clr Drug Dosing 54.81 mL/min Estimated GFR (MDRD) 55 L (>60) Glucose 145 H (74-106) mg/dL POC Glucose 179 H (74-106) MG/DL Calcium 8.9 (8.5-10.1) mg/dL Magnesium 1.5 L (1.8-2.4) mg/dL Total Bilirubin 0.6 (0.2-1.0) mg/dL AST 19 (15-37) U/L ALT 45 (12-78) U/L Alkaline Phosphatase 52 (46-116) U/L NT-Pro-B Natriuret Pep 855 H (5-125) pg/mL Total Protein 5.7 L (6.4-8.2) g/dL Albumin 2.9 L (3.4-5.0) g/dL Globulin 2.8 (2.3-3.5) g/dL Albumin/Globulin Ratio 1.0 L (1.2-2.2) Carcinoembryonic Ag (0.0-4.7) ng/mL Crossmatch 12/18/20 12/18/20 Range/Units 07:30 11:30 WBC (4.5-11.0) K/uL RBC (4.30-5.90) M/uL Hgb (12.0-15.0) g/dL Hct (40.0-54.0) % MCV (80-98) fL MCH (27-31) pg MCHC (32-36) % Plt Count (150-400) K/uL Sodium (140-148) mmol/L Potassium (3.6-5.2) mmol/L Chloride (100-108) mmol/L Carbon Dioxide (21-32) mmol/L Anion Gap (5.0-14.0) mmol/L BUN (7-18) mg/dL Creatinine (0.8-1.3) mg/dL Est Cr Clr Drug Dosing mL/min Estimated GFR (MDRD) (>60) Glucose (74-106) mg/dL POC Glucose 181 H 188 H (74-106) MG/DL Calcium (8.5-10.1) mg/dL Magnesium (1.8-2.4) mg/dL Total Bilirubin (0.2-1.0) mg/dL AST (15-37) U/L ALT (12-78) U/L Alkaline Phosphatase (46-116) U/L NT-Pro-B Natriuret Pep (5-125) pg/mL Total Protein (6.4-8.2) g/dL Albumin (3.4-5.0) g/dL Globulin (2.3-3.5) g/dL Albumin/Globulin Ratio (1.2-2.2) Carcinoembryonic Ag (0.0-4.7) ng/mL Crossmatch Med Orders - Current: Current Medications Acetaminophen (Acetaminophen 500 Mg Tab) 1,000 mg PO Q6H [facility] Last Admin: 12/18/20 12:16 Dose: Not Given Documented by: Alvimopan (Alvimopan 12 Mg Capsule) 12 mg PO Q12H [facility] Stop: 12/24/20 08:01 Last Admin: 12/18/20 08:46 Dose: 12 mg Documented by: Bisacodyl (Bisacodyl 5 Mg Tab) 10 mg PO BID [facility] Last Admin: 12/18/20 08:46 Dose: 10 mg Documented by: Ropivacaine 40 ml/Dexamethasone 8 mg/Epinephrine HCl 0.4 mg/ Sodium Chloride 37.6 ml 0 ml NERVRT ASDIRECTED [facility] Dextrose/Water (50% Dextrose In Water 50 Ml Syringe) 50 ml IVPUSH ASDIRECTED PRN PRN Reason: Hypoglycemia Diphenhydramine HCl (Diphenhydramine 50 Mg/Ml Sdv) 25 mg IVPUSH Q6H PRN PRN Reason: ITCHING Diphenhydramine HCl (Diphenhydramine 50 Mg/Ml Sdv) 50 mg IVPUSH Q6H PRN PRN Reason: ITCHING Glucagon (Glucagon,Human Recombinant 1 Mg Vial) 1 mg IM ASDIRECTED PRN PRN Reason: Hypoglycemia Hydroxyzine HCl (Hydroxyzine Hcl 100 Mg/2 Ml Sdv) 100 mg IM Q4H PRN PRN Reason: BREAKTHROUGH PAIN Fentanyl 2,500 mcg/ Sodium (Chloride) 250 mls @ 0 mls/hr EPIDUR TITRATE [facility]; Protocol Last Admin: 12/18/20 05:08 Dose: 12 mls/hr, 12 mls/hr Documented by: Magnesium Sulfate (Magnesium Sulfate In Water 2 Gm/50 Ml) 2 gm in 50 mls @ 12.5 mls/hr IV Q6H [facility] Stop: 12/21/20 07:59 Last Admin: 12/18/20 10:27 Dose: 12.5 mls/hr Documented by: Lactated Ringer's (Ringers, Lactated) 1,000 mls @ 100 mls/hr IV ASDIRECTED [facility] Last Admin: 12/18/20 12:09 Dose: 100 mls/hr Documented by: Insulin Human Lispro (Insulin Lispro 100 Unit/Ml 3 Ml Kwikpen) 0 unit SUBCUT QIDACANDBED [facility]; Protocol Last Admin: 12/18/20 12:15 Dose: 2 units Documented by: Lisinopril (Lisinopril 20 Mg Tab) 20 mg PO DAILY [facility] Last Admin: 12/18/20 08:45 Dose: 20 mg Documented by: Metformin HCl (Metformin 500 Mg Tab) 1,000 mg PO BIDMEALS [facility] Last Admin: 12/18/20 08:45 Dose: 1,000 mg Documented by: Miscellaneous Information (Remove Patch) 1 ea TRDERM ONETIME ONE Stop: 12/20/20 09:01 Naloxone HCl (Naloxone 0.4 Mg/Ml Sdv) 0.1 mg IVPUSH Q5M PRN PRN Reason: RESP RATE LESS THAN 6/MINUTE Naloxone HCl (Naloxone 0.4 Mg/Ml Sdv) 0.4 mg IV ASDIRECTED PRN PRN Reason: ITCHING Naproxen (Naproxen 250 Mg Tab) 250 mg PO BIDMEALS [facility] Last Admin: 12/18/20 08:45 Dose: 250 mg Documented by: Scopolamine Patch (Check) 1 each TOP DAILY [facility] Stop: 12/19/20 09:01 Last Admin: 12/18/20 10:26 Dose: Not Given Documented by: Ondansetron HCl (Ondansetron 4 Mg/2 Ml Sdv) 4 mg IVPUSH Q4H PRN PRN Reason: Nausea Pantoprazole Sodium (Pantoprazole 40 Mg Vial) 40 mg IV Q24H [facility] Last Admin: 12/18/20 11:53 Dose: 40 mg Documented by: Senna (Sennosides 8.6 Mg Tab) 17.2 mg PO DAILY [facility] Last Admin: 12/18/20 08:45 Dose: 17.2 mg Documented by: Tamsulosin HCl (Tamsulosin 0.4 Mg Cap.Er) 0.4 mg PO BEDTIME [facility] Last Admin: 12/17/20 21:13 Dose: 0.4 mg Documented by: Discontinued Medications Acetaminophen (Acetaminophen 325 Mg Tab) 650 mg PO Q4H PRN PRN Reason: Pain (Mild 1-3)/fever Last Admin: 12/16/20 15:39 Dose: 650 mg Documented by: Alvimopan (Alvimopan 12 Mg Capsule) 12 mg PO ONETIME ONE Stop: 12/17/20 05:31 Last Admin: 12/17/20 04:35 Dose: 12 mg Documented by: Bisacodyl (Bisacodyl 5 Mg Tab) 10 mg PO ONETIME ONE Stop: 12/15/20 12:01 Last Admin: 12/15/20 11:42 Dose: 10 mg Documented by: Bisacodyl (Bisacodyl 5 Mg Tab) 10 mg PO ONETIME ONE Stop: 12/15/20 20:01 Last Admin: 12/15/20 19:24 Dose: 10 mg Documented by: Bupivacaine HCl (Bupivacaine 0.5% 50 Ml Mdv) Confirm Administered Dose 50 ml .ROUTE .STK-MED ONE Stop: 12/17/20 07:58 Dexamethasone (Dexamethasone 4 Mg/Ml Sdv) Confirm Administered Dose 4 mg .ROUTE .STK-MED ONE Stop: 12/17/20 06:44 Dextrose/Water (50% Dextrose In Water 50 Ml Syringe) 50 ml IVPUSH ASDIRECTED PRN PRN Reason: Hypoglycemia Diphenhydramine HCl (Diphenhydramine 50 Mg/Ml Sdv) 25 mg IVPUSH BEDTIME PRN PRN Reason: Insomnia Fentanyl (Fentanyl 100 Mcg/2 Ml Sdv) Confirm Administered Dose 100 mcg .ROUTE .STK-MED ONE Stop: 12/15/20 09:25 Fentanyl (Fentanyl 100 Mcg/2 Ml Sdv) Confirm Administered Dose 100 mcg .ROUTE .STK-MED ONE Stop: 12/16/20 08:11 Fentanyl (Fentanyl 250 Mcg/5 Ml Sdv) Confirm Administered Dose 250 mcg .ROUTE .STK-MED ONE Stop: 12/17/20 06:44 Fentanyl (Fentanyl 100 Mcg/2 Ml Sdv) Confirm Administered Dose 100 mcg .ROUTE .STK-MED ONE Stop: 12/17/20 06:56 Glucagon (Glucagon,Human Recombinant 1 Mg Vial) 1 mg IM ASDIRECTED PRN PRN Reason: Hypoglycemia Glycopyrrolate (Glycopyrrolate 0.2 Mg/Ml 5 Ml Mdv) Confirm Administered Dose 1 mg .ROUTE .STK-MED ONE Stop: 12/17/20 06:44 Sodium Chloride (Normal Saline) 1,000 mls @ 1,000 mls/hr IV ASDIRECTED [facility] Last Admin: 12/14/20 21:21 Dose: 1,000 mls/hr Documented by: Tranexamic Acid 1,000 mg/ (Sodium Chloride) 60 mls @ 200 mls/hr IV ONETIME ONE Stop: 12/14/20 20:59 Last Admin: 12/14/20 21:21 Dose: 200 mls/hr Documented by: Promethazine HCl 6.25 mg/ (Sodium Chloride) 50.25 mls @ 200 mls/hr IV Q6H PRN PRN Reason: Nausea/Vomiting Dextrose/Lactated Ringer's (Dextrose 5%-Lactated Ringers) 1,000 mls @ [facility] Admin: 12/15/20 11:27 Dose: 150 mls/hr Documented by: Dextrose/Lactated Ringer's (Dextrose 5%-Lactated Ringers) 1,000 mls @ 100 [facility]ls[facility] Last Admin: 12/16/20 22:43 Dose: 100 mls/hr Documented by: Sodium Chloride (Normal Saline) 75 mls @ 3 mls/sec IV ONETIME ONE Stop: 12/16/20 12:48 Last Admin: 12/16/20 13:03 Dose: 3 mls/sec Documented by: Cefoxitin Sodium 2 gm/ Sodium (Chloride) 50 mls @ 100 mls/hr IV ONETIME ONE Stop: 12/17/20 05:59 Last Admin: 12/17/20 04:35 Dose: 100 mls/hr Documented by: Sodium Chloride (Normal Saline) Confirm Administered Dose 10 mls @ as directed . ROUTE .STK-MED ONE Stop: 12/17/20 06:44 Lactated Ringer's (Ringers, Lactated) Confirm Administered Dose 1,000 mls @ as directed .ROUTE .STK-MED ONE Stop: 12/17/20 07:55 Acetaminophen 1,000 mg/ Premix 100 mls @ 400 mls/hr IV ONETIME ONE Stop: 12/17/20 09:14 Last Admin: 12/17/20 09:09 Dose: 400 mls/hr Documented by: Lactated Ringer's (Ringers, Lactated) 1,000 mls @ 175 [facility]ls[facility] Last Admin: 12/18/20 05:27 Dose: 175 mls/hr Documented by: Cefoxitin Sodium 2 gm/ Sodium (Chloride) 50 mls @ 100 mls/hr IV Q6H [facility] Stop: 12/18/20 10:59 Last Admin: 12/18/20 10:34 Dose: 100 mls/hr Documented by: Insulin Glargine (Insulin Glargine,Human Rec. Analog 100 Units/Ml 3 Ml Pen) 8 units SUBCUT DAILY [facility] Insulin Glargine (Insulin Glargine,Human Rec. Analog 100 Units/Ml 3 Ml Pen) 18 units SUBCUT BEDTIME [facility] Last Admin: 12/16/20 21:39 Dose: 18 units Documented by: Insulin Human Lispro (Insulin Lispro 100 Unit/Ml 3 Ml Kwikpen) 0 unit SUBCUT QIDACANDBED [facility]; Protocol Last Admin: 12/15/20 08:35 Dose: Not Given Documented by: Insulin Human Lispro (Insulin Lispro 100 Unit/Ml 3 Ml Kwikpen) 0 unit SUBCUT QIDACANDBED [facility]; Protocol Last Admin: 12/17/20 21:33 Dose: Not Given Documented by: Insulin Human Lispro (Insulin Lispro 100 Unit/Ml 3 Ml Kwikpen) 12 unit SUBCUT ONETIME ONE Stop: 12/15/20 11:41 Last Admin: 12/15/20 11:51 Dose: 12 units Documented by: Iopamidol (Iopamidol 612 Mg/Ml 100 Ml Bottle) 100 ml IV . DIRECTED PRN PRN Reason: RADIOLOGY EXAM Stop: 12/16/20 12:48 Last Admin: 12/16/20 13:03 Dose: 100 ml Documented by: Lidocaine/Epinephrine (Lidocaine 1% With Epinephrine 1:100,000 50 Ml Mdv) Confirm Administered Dose 50 ml .ROUTE .STK-MED ONE Stop: 12/17/20 07:58 Melatonin (Melatonin 3 Mg Tab) 9 mg PO BEDTIME PRN PRN Reason: Sleep Last Admin: 12/16/20 20:38 Dose: 9 mg Documented by: Meropenem (Meropenem 500 Mg Sdv) Confirm Administered Dose 500 mg .ROUTE .STK- MED ONE Stop: 12/17/20 06:17 Last Admin: 12/17/20 07:55 Dose: 500 mg Documented by: Midazolam HCl (Midazolam 1 Mg/Ml 2 Ml Sdv) Confirm Administered Dose 2 mg .ROUTE .STK-MED ONE Stop: 12/15/20 09:25 Midazolam HCl (Midazolam 1 Mg/Ml 2 Ml Sdv) Confirm Administered Dose 2 mg .ROUTE .STK-MED ONE Stop: 12/16/20 08:11 Midazolam HCl (Midazolam 1 Mg/Ml 2 Ml Sdv) Confirm Administered Dose 2 mg .ROUTE .STK-MED ONE Stop: 12/17/20 06:58 Morphine Sulfate (Morphine 2 Mg/Ml Syringe) 2 mg IVPUSH Q2H PRN PRN Reason: Pain Neostigmine Methylsulfate (Neostigmine Methylsulfate 1 Mg/Ml 5 Ml Syringe) Confirm Administered Dose 5 mg .ROUTE .STK-MED ONE Stop: 12/17/20 06:44 Nicotine (Nicotine 14 Mg/24 Hr Patch) 14 mg TRDERM DAILY [facility] Last Admin: 12/17/20 21:33 Dose: Not Given Documented by: Ondansetron HCl (Ondansetron 4 Mg/2 Ml Sdv) 4 mg IV Q4H PRN PRN Reason: Nausea/Vomiting Ondansetron HCl (Ondansetron 4 Mg/2 Ml Sdv) Confirm Administered Dose 4 mg .ROUTE .STK-MED ONE Stop: 12/17/20 06:44 Pantoprazole Sodium (Pantoprazole 40 Mg Vial) 40 mg IVPUSH Q12H [facility] Last Admin: 12/15/20 09:47 Dose: 40 mg Documented by: Pantoprazole Sodium (Pantoprazole 40 Mg Tab.Cr) 40 mg PO BIDAC [facility] Last Admin: 12/17/20 21:33 Dose: Not Given Documented by: Polyethylene Glycol (Polyethylene Glycol 3350 Powder 238 Gm Bot) 238 gm PO ONETIME ONE Stop: 12/15/20 17:01 Last Admin: 12/15/20 16:22 Dose: 238 gm Documented by: Propofol (Propofol 200 Mg/20 Ml Sdv) Confirm Administered Dose 200 mg .ROUTE .STK-MED ONE Stop: 12/15/20 09:25 Propofol (Propofol 200 Mg/20 Ml Sdv) Confirm Administered Dose 200 mg .ROUTE .STK-MED ONE Stop: 12/16/20 08:11 Propofol (Propofol 200 Mg/20 Ml Sdv) Confirm Administered Dose 200 mg .ROUTE .STK-MED ONE Stop: 12/16/20 09:08 Propofol (Propofol 200 Mg/20 Ml Sdv) Confirm Administered Dose 200 mg .ROUTE .STK-MED ONE Stop: 12/17/20 06:44 Rocuronium [place] (Rocuronium 50 Mg/5 Ml Vial) Confirm Administered Dose 50 mg .ROUTE .STK-MED ONE Stop: 12/17/20 06:44 Scopolamine (Scopolamine 1.5 Mg Transdermal Patch) 1.5 mg TOP ONETIME ONE Stop: 12/17/20 08:59 Last Admin: 12/17/20 09:04 Dose: 1.5 mg Documented by: Sodium Chloride (Sodium Chloride 0.9% 10 Ml Syringe) 10 ml FLUSH ONETIME PRN PRN Reason: PER RADIOLOGY PROTOCOL Stop: 12/16/20 12:48 Last Admin: 12/16/20 13:03 Dose: 10 ml Documented by: Zolpidem Tartrate (Zolpidem 5 Mg Tab) 5 mg PO BEDTIME PRN PRN Reason: Sleep Last Admin: 12/14/20 23:16 Dose: 5 mg Documented by: - Exam Quality Assessment: No: Supplemental Oxygen General: Alert, Oriented, Cooperative, No Acute Distress Lungs: Clear to Auscultation, Normal Respiratory Effort. No: Wheezing Cardiovascular: Regular Rate, Regular Rhythm GI/Abdominal Exam: Soft, No Distention Extremities: No Pedal Edema. No: Increased Warmth Skin: Warm, Dry Psy/Mental Status: Alert, Normal Affect - Patient Data Lab Results Last 24 hrs: Laboratory Results - last 24 hr 12/14/20 12/17/20 12/17/20 Range/Units 20:55 04:05 16:28 WBC (4.5-11.0) K/uL RBC (4.30-5.90) M/uL Hgb (12.0-15.0) g/dL Hct (40.0-54.0) % MCV (80-98) fL MCH (27-31) pg MCHC (32-36) % Plt Count (150-400) K/uL Sodium (140-148) mmol/L Potassium (3.6-5.2) mmol/L Chloride (100-108) mmol/L Carbon Dioxide (21-32) mmol/L Anion Gap (5.0-14.0) mmol/L BUN (7-18) mg/dL Creatinine (0.8-1.3) mg/dL Est Cr Clr Drug Dosing mL/min Estimated GFR (MDRD) (>60) Glucose (74-106) mg/dL POC Glucose 268 H (74-106) MG/DL Calcium (8.5-10.1) mg/dL Magnesium (1.8-2.4) mg/dL Total Bilirubin (0.2-1.0) mg/dL AST (15-37) U/L ALT (12-78) U/L Alkaline Phosphatase (46-116) U/L NT-Pro-B Natriuret Pep (5-125) pg/mL Total Protein (6.4-8.2) g/dL Albumin (3.4-5.0) g/dL Globulin (2.3-3.5) g/dL Albumin/Globulin Ratio (1.2-2.2) Carcinoembryonic Ag 3.7 (0.0-4.7) ng/mL Crossmatch See Detail 12/17/20 12/18/20 12/18/20 Range/Units 21:01 04:36 04:36 WBC 11.3 H (4.5-11.0) K/uL RBC 3.84 L (4.30-5.90) M/uL Hgb 11.5 L (12.0-15.0) g/dL Hct 34.4 L (40.0-54.0) % MCV 90 (80-98) fL MCH 30 (27-31) pg MCHC 33 (32-36) % Plt Count 241 (150-400) K/uL Sodium 145 (140-148) mmol/L Potassium 4.1 (3.6-5.2) mmol/L Chloride 107 (100-108) mmol/L Carbon Dioxide 29 (21-32) mmol/L Anion Gap 9.3 (5.0-14.0) mmol/L BUN 7 (7-18) mg/dL Creatinine 1.3 (0.8-1.3) mg/dL Est Cr Clr Drug Dosing 54.81 mL/min Estimated GFR (MDRD) 55 L (>60) Glucose 145 H (74-106) mg/dL POC Glucose 179 H (74-106) MG/DL Calcium 8.9 (8.5-10.1) mg/dL Magnesium 1.5 L (1.8-2.4) mg/dL Total Bilirubin 0.6 (0.2-1.0) mg/dL AST 19 (15-37) U/L ALT 45 (12-78) U/L Alkaline Phosphatase 52 (46-116) U/L NT-Pro-B Natriuret Pep 855 H (5-125) pg/mL Total Protein 5.7 L (6.4-8.2) g/dL Albumin 2.9 L (3.4-5.0) g/dL Globulin 2.8 (2.3-3.5) g/dL Albumin/Globulin Ratio 1.0 L (1.2-2.2) Carcinoembryonic Ag (0.0-4.7) ng/mL Crossmatch 12/18/20 12/18/20 Range/Units 07:30 11:30 WBC (4.5-11.0) K/uL RBC (4.30-5.90) M/uL Hgb (12.0-15.0) g/dL Hct (40.0-54.0) % MCV (80-98) fL MCH (27-31) pg MCHC (32-36) % Plt Count (150-400) K/uL Sodium (140-148) mmol/L Potassium (3.6-5.2) mmol/L Chloride (100-108) mmol/L Carbon Dioxide (21-32) mmol/L Anion Gap (5.0-14.0) mmol/L BUN (7-18) mg/dL Creatinine (0.8-1.3) mg/dL Est Cr Clr Drug Dosing mL/min Estimated GFR (MDRD) (>60) Glucose (74-106) mg/dL POC Glucose 181 H 188 H (74-106) MG/DL Calcium (8.5-10.1) mg/dL Magnesium (1.8-2.4) mg/dL Total Bilirubin (0.2-1.0) mg/dL AST (15-37) U/L ALT (12-78) U/L Alkaline Phosphatase (46-116) U/L NT-Pro-B Natriuret Pep (5-125) pg/mL Total Protein (6.4-8.2) g/dL Albumin (3.4-5.0) g/dL Globulin (2.3-3.5) g/dL Albumin/Globulin Ratio (1.2-2.2) Carcinoembryonic Ag (0.0-4.7) ng/mL Crossmatch Result Diagrams: 12/18/20 04:36 12/18/20 04:36 Sepsis Event Note - Evaluation Sepsis Screening Result: No Definite Risk - Focused Exam Vital Signs: Vital Signs Temp Temp Pulse Resp BP BP Pulse Ox 12/18/20 12:54 93 L 12/18/20 10:50 35.8 C L 84 18 94/75 94 L 12/18/20 08:45 146/69 H 12/18/20 07:30 98 12/18/20 07:00 35.5 C L 74 18 146/69 H 96 12/18/20 03:46 35.8 C L 79 18 149/67 H 99 - Problem List Review Problem List Initiated/Reviewed/Updated: Yes - My Orders Last 24 Hours: My Active Orders 12/18/20 07:29 Urinary Catheter Assessment [RC] ASDIRECTED 12/18/20 07:30 Insert Urinary Catheter [OM.PC] Q24H 12/18/20 14:00 Lactated Ringers [Ringers, Lactated] 1,000 ml IV ASDIRECTED 12/18/20 16:30 GLUCOSE POC LAB TO COLLECT JPM [POC] QIDACANDBED 12/18/20 21:00 GLUCOSE POC LAB TO COLLECT JPM [POC] QIDACANDBED 12/19/20 07:30 GLUCOSE POC LAB TO COLLECT JPM [POC] QIDACANDBED GLUCOSE POC LAB TO COLLECT JPM [POC] QIDACANDBED 12/19/20 11:30 GLUCOSE POC LAB TO COLLECT JPM [POC] QIDACANDBED GLUCOSE POC LAB TO COLLECT JPM [POC] QIDACANDBED 12/19/20 16:30 GLUCOSE POC LAB TO COLLECT JPM [POC] QIDACANDBED GLUCOSE POC LAB TO COLLECT JPM [POC] QIDACANDBED 12/19/20 21:00 GLUCOSE POC LAB TO COLLECT JPM [POC] QIDACANDBED GLUCOSE POC LAB TO COLLECT JPM [POC] QIDACANDBED 12/20/20 07:30 GLUCOSE POC LAB TO COLLECT JPM [POC] QIDACANDBED GLUCOSE POC LAB TO COLLECT JPM [POC] QIDACANDBED 12/20/20 11:30 GLUCOSE POC LAB TO COLLECT JPM [POC] QIDACANDBED GLUCOSE POC LAB TO COLLECT JPM [POC] QIDACANDBED 12/20/20 16:30 GLUCOSE POC LAB TO COLLECT JPM [POC] QIDACANDBED 12/20/20 21:00 GLUCOSE POC LAB TO COLLECT JPM [POC] QIDACANDBED 12/21/20 07:30 GLUCOSE POC LAB TO COLLECT JPM [POC] QIDACANDBED 12/21/20 11:30 GLUCOSE POC LAB TO COLLECT JPM [POC] QIDACANDBED 12/21/20 16:30 GLUCOSE POC LAB TO COLLECT JPM [POC] QIDACANDBED 12/21/20 21:00 GLUCOSE POC LAB TO COLLECT JPM [POC] QIDACANDBED - Plan Plan:: ASSESSMENT AND PLAN - Colon cancer-right colon mass leading to lower gastrointestinal hemorrhage. Status post right colectomy on 12/17. Doing well postoperatively. CT C/A/P negative for metastatic disease. -CEA pending -Surgical follow-up per Dr. Au -Continue PPI for the short-term -Hemoglobin in the morning Insulin-dependent diabetes mellitus-well controlled by history. Sugars well controlled. -Saline lock IV -Advance diet per surgical team -Continue long-acting insulin at bedtime -Sliding scale insulin Maintenance issues - -DVT prophylaxis-mechanical with recent hemorrhage -GI prophylaxis-PPI -Nutrition-advance per surgical team -Haywood catheter-not indicated Disposition -I anticipate discharge home after the hospital stay Thierry Forrester M.D.
--- NOTE | 2020-12-18 14:08 | PN ---
DATE OF SERVICE: 12/18/2020 SUBJECTIVE: Kain is postoperative day #1. He has been up ambulating. Vital signs have been stable. White count is 11.3. The last 2 blood sugars have been 145 and 181. Pain has been controlled with his epidural. REVIEW OF SYSTEMS: Remainder of review of systems negative for any pertinent positives and negatives. OBJECTIVE: GENERAL: Kain is a pleasant 65-year-old male. VITAL SIGNS: TPR is 95.9, 74, 18, blood pressure 146/69. HEENT: Negative. NECK: Supple. HEART: Regular rate and rhythm. LUNGS: Clear. ABDOMEN: Dressing dry and intact. Abdominal binder is on. EXTREMITIES: Without peripheral edema. ASSESSMENT: Exploratory laparotomy with right colectomy and mass at the ileocecal valve. Date of procedure: 12/18/2020. Surgeon: Jude Au MD. POSTOPERATIVE DIAGNOSIS: Rectal bleeding. PLAN: 1. Schedule and have consent signed for delayed primary closure, IV local sedation with TAP block, 12/19/2020 at 07:15. Surgeon: Jude Au MD. 2. Magnesium 2 g IV q.6 hours x72 hours. 3. Consistent carb diet. 4. Check BNP, CBC, and CMP in a.m. 5. Decrease IV rate to 100 mL per hour. 6. Naproxen 250 mg p.o. b.i.d. scheduled. 7. Metformin 1000 mg p.o. scheduled. 8. IV changed to lactated Ringer's 100 mg/hour. 9. We will evaluate p.r.n. or in a.m. Dorothy Boothe PA-C /[id number]
[2020-12-18] MEDS: Nicotine 14 MG/24 Hr Patch TRDERM SCH (18:04)
[2020-12-18] MEDS: Tamsulosin 0.4 MG Cap.ER PO SCH (21:08)
[2020-12-19] MEDS: fentaNYL 2,500 MCG in Sodium Chloride 0.9% 200 ML EPIDUR SCH (01:40)
[2020-12-19] MEDS: Magnesium Sulfate/Water 2 GM/50 ML BAG IV SCH ×2 (04:32→09:06)
[2020-12-19] MEDS: Acetaminophen 500 MG Tab PO SCH ×3 (05:39→17:18)
[2020-12-19] MEDS ORDERED: Meropenem 500 MG SDV ONE (06:24)
[2020-12-19] MEDS ORDERED: Bupivacaine 0.5% 50 ML MDV ONE (06:24)
[2020-12-19] MEDS ORDERED: Lidocaine 1% with EPINEPHrine 1:100,000 50 ML MDV ONE (06:25)
[2020-12-19] MEDS ORDERED: Midazolam 1 MG/ML 2 ML SDV ONE (07:17)
[2020-12-19] MEDS ORDERED: Propofol 200 MG/20 ML SDV ONE (07:17)
[2020-12-19] MEDS ORDERED: Ropivacaine 40 ML, dexAMETHasone 8 MG, EPINEPHrine 0.4 MG, Sodium Chloride 0.9% 37.6 ML NERVRT SCH ×4 (07:30)
[2020-12-19] MEDS ORDERED: oxyCODONE 5 MG Tab PO PRN (08:31)
[2020-12-19] MEDS: Naproxen 250 MG Tab PO SCH ×2 (09:01→16:50)
[2020-12-19] MEDS: metFORMIN 500 MG Tab PO SCH ×2 (09:01→16:50)
[2020-12-19] MEDS: Sennosides 8.6 MG Tab PO SCH (09:02)
[2020-12-19] MEDS: Bisacodyl 5 MG Tab PO SCH ×2 (09:02→21:51)
[2020-12-19] MEDS: Lisinopril 20 MG Tab PO SCH (09:02)
[2020-12-19] MEDS: SCOPOLAMINE PATCH CHECK TOP SCH (09:03)
[2020-12-19] MEDS: Insulin Lispro 100 Unit/ML 3 ML KwikPen SUBCUT SCH ×4 (09:05→21:48)
[2020-12-19] MEDS: Calcium Carbonate 500 MG Tab.Chew PO PRN ×2 (09:40→20:22)
[2020-12-19] MEDS: Nicotine 14 MG/24 Hr Patch TRDERM SCH (09:41)
--- NOTE | 2020-12-19 10:37 | PCM.PN ---
- General Info Date of Service: 12/19/20 Subjective Update: No acute events overnight. Pain is improving. Minimal if any pain at rest but some pain with initiation of movements. No cough or shortness of breath but he did require supplemental oxygen for a while overnight. No nausea. He has passed some small quantities of blood in his stool today. No fevers. Pathology returned with a hyperplastic polyp from the colonoscopy and ruptured diverticulum with abscess formation from the colectomy. There was no evidence for malignancy. Functional Status: Reports: Pain Controlled, Tolerating Diet - Review of Systems General: Denies: Fever - Patient Data Vitals - Most Recent: Last Vital Signs Temp 36.8 C 12/19/20 10:05 Pulse 97 12/19/20 10:05 Resp 12 12/19/20 10:05 BP 145/80 H 12/19/20 10:05 Pulse Ox 93 L 12/19/20 10:05 Weight - Most Recent: 79.832 kg I&O - Last 24 Hours: Intake & Output 12/18/20 12/19/20 12/19/20 22:59 06:59 14:59 Intake Total 2314 1110 405 Output Total 8387 469 1854 Balance 1264 545 -620 Lab Results Last 24 Hours: Laboratory Results - last 24 hr 12/18/20 12/18/20 12/18/20 Range/Units 11:30 16:28 21:00 WBC (4.5-11.0) K/uL RBC (4.30-5.90) M/uL Hgb (12.0-15.0) g/dL Hct (40.0-54.0) % MCV (80-98) fL MCH (27-31) pg MCHC (32-36) % Plt Count (150-400) K/uL Sodium (140-148) mmol/L Potassium (3.6-5.2) mmol/L Chloride (100-108) mmol/L Carbon Dioxide (21-32) mmol/L Anion Gap (5.0-14.0) mmol/L BUN (7-18) mg/dL Creatinine (0.8-1.3) mg/dL Est Cr Clr Drug Dosing mL/min Estimated GFR (MDRD) (>60) Glucose (74-106) mg/dL POC Glucose 188 H 211 H 233 H (74-106) MG/DL Calcium (8.5-10.1) mg/dL Phosphorus (2.5-4.9) mg/dL Total Bilirubin (0.2-1.0) mg/dL AST (15-37) U/L ALT (12-78) U/L Alkaline Phosphatase (46-116) U/L NT-Pro-B Natriuret Pep (5-125) pg/mL Total Protein (6.4-8.2) g/dL Albumin (3.4-5.0) g/dL Globulin (2.3-3.5) g/dL Albumin/Globulin Ratio (1.2-2.2) 12/19/20 12/19/20 Range/Units 04:22 04:22 WBC 9.1 (4.5-11.0) K/uL RBC 3.09 L (4.30-5.90) M/uL Hgb 9.2 L D (12.0-15.0) g/dL Hct 28.1 L (40.0-54.0) % MCV 91 (80-98) fL MCH 30 (27-31) pg MCHC 33 (32-36) % Plt Count 235 (150-400) K/uL Sodium 146 (140-148) mmol/L Potassium 3.7 (3.6-5.2) mmol/L Chloride 107 (100-108) mmol/L Carbon Dioxide 29 (21-32) mmol/L Anion Gap 10.3 (5.0-14.0) mmol/L BUN 9 (7-18) mg/dL Creatinine 1.0 (0.8-1.3) mg/dL Est Cr Clr Drug Dosing 71.25 mL/min Estimated GFR (MDRD) > 60 (>60) Glucose 164 H (74-106) mg/dL POC Glucose (74-106) MG/DL Calcium 8.6 (8.5-10.1) mg/dL Phosphorus 2.3 L (2.5-4.9) mg/dL Total Bilirubin 0.2 D (0.2-1.0) mg/dL AST 17 (15-37) U/L ALT 35 (12-78) U/L Alkaline Phosphatase 47 (46-116) U/L NT-Pro-B Natriuret Pep 424 H (5-125) pg/mL Total Protein 5.2 L (6.4-8.2) g/dL Albumin 2.7 L (3.4-5.0) g/dL Globulin 2.5 (2.3-3.5) g/dL Albumin/Globulin Ratio 1.1 L (1.2-2.2) Med Orders - Current: Current Medications Acetaminophen (Acetaminophen 500 Mg Tab) 1,000 mg PO Q6H [facility] Last Admin: 12/19/20 05:39 Dose: Not Given Documented by: Alvimopan (Alvimopan 12 Mg Capsule) 12 mg PO Q12H [facility] Stop: 12/24/20 08:01 Last Admin: 12/19/20 09:01 Dose: 12 mg Documented by: Bisacodyl (Bisacodyl 5 Mg Tab) 10 mg PO BID [facility] Last Admin: 12/19/20 09:02 Dose: 10 mg Documented by: Calcium Carbonate/Glycine (Calcium Carbonate 500 Mg Tab.Chew) 1,000 mg PO Q2H PRN PRN Reason: Indigestion Last Admin: 12/19/20 09:40 Dose: 1,000 mg Documented by: Dextrose/Water (50% Dextrose In Water 50 Ml Syringe) 50 ml IVPUSH ASDIRECTED PRN PRN Reason: Hypoglycemia Glucagon (Glucagon,Human Recombinant 1 Mg Vial) 1 mg IM ASDIRECTED PRN PRN Reason: Hypoglycemia Hydroxyzine HCl (Hydroxyzine Hcl 100 Mg/2 Ml Sdv) 100 mg IM Q4H PRN PRN Reason: BREAKTHROUGH PAIN Magnesium Sulfate (Magnesium Sulfate In Water 2 Gm/50 Ml) 2 gm in 50 mls @ 12.5 mls/hr IV Q6H [facility] Stop: 12/21/20 07:59 Last Admin: 12/19/20 09:06 Dose: 12.5 mls/hr Documented by: Lactated Ringer's (Ringers, Lactated) 1,000 mls @ 25 mls/hr IV ASDIRECTED [facility] Potassium Phosphate 15 mmol/ (Premix) 250 mls @ 85 mls/hr IV Q3H [facility] Stop: 12/19/20 18:57 Insulin Glargine (Insulin Glargine,Human Rec. Analog 100 Units/Ml 3 Ml Pen) 18 units SUBCUT BEDTIME [facility] Insulin Human Lispro (Insulin Lispro 100 Unit/Ml 3 Ml Kwikpen) 0 unit SUBCUT QIDACANDBED [facility]; Protocol Last Admin: 12/19/20 09:05 Dose: Not Given Documented by: Lisinopril (Lisinopril 20 Mg Tab) 20 mg PO DAILY [facility] Last Admin: 12/19/20 09:02 Dose: 20 mg Documented by: Metformin HCl (Metformin 500 Mg Tab) 1,000 mg PO BIDMEALS [facility] Last Admin: 12/19/20 09:01 Dose: 1,000 mg Documented by: Miscellaneous Information (Remove Patch) 1 ea TRDERM ONETIME ONE Stop: 12/20/20 09:01 Miscellaneous Information (Remove Nicotine Patch) 1 ea TRDERM BEDTIME [facility] Last Admin: 12/18/20 21:10 Dose: Not Given Documented by: Naproxen (Naproxen 250 Mg Tab) 250 mg PO BIDMEALS [facility] Last Admin: 12/19/20 09:01 Dose: 250 mg Documented by: Nicotine (Nicotine 14 Mg/24 Hr Patch) 14 mg TRDERM DAILY [facility] Last Admin: 12/19/20 09:41 Dose: 14 mg Documented by: Ondansetron HCl (Ondansetron 4 Mg/2 Ml Sdv) 4 mg IVPUSH Q4H PRN PRN Reason: Nausea Last Admin: 12/19/20 05:43 Dose: 4 mg Documented by: Oxycodone HCl (Oxycodone 5 Mg Tab) 5 mg PO Q4H PRN PRN Reason: Pain Pantoprazole Sodium (Pantoprazole 40 Mg Vial) 40 mg IV Q24H [facility] Last Admin: 12/18/20 11:53 Dose: 40 mg Documented by: Senna (Sennosides 8.6 Mg Tab) 17.2 mg PO DAILY [facility] Last Admin: 12/19/20 09:02 Dose: 17.2 mg Documented by: Tamsulosin HCl (Tamsulosin 0.4 Mg Cap.Er) 0.4 mg PO BEDTIME [facility] Last Admin: 12/18/20 21:08 Dose: 0.4 mg Documented by: Discontinued Medications Acetaminophen (Acetaminophen 325 Mg Tab) 650 mg PO Q4H PRN PRN Reason: Pain (Mild 1-3)/fever Last Admin: 12/16/20 15:39 Dose: 650 mg Documented by: Alvimopan (Alvimopan 12 Mg Capsule) 12 mg PO ONETIME ONE Stop: 12/17/20 05:31 Last Admin: 12/17/20 04:35 Dose: 12 mg Documented by: Bisacodyl (Bisacodyl 5 Mg Tab) 10 mg PO ONETIME ONE Stop: 12/15/20 12:01 Last Admin: 12/15/20 11:42 Dose: 10 mg Documented by: Bisacodyl (Bisacodyl 5 Mg Tab) 10 mg PO ONETIME ONE Stop: 12/15/20 20:01 Last Admin: 12/15/20 19:24 Dose: 10 mg Documented by: Bupivacaine HCl (Bupivacaine 0.5% 50 Ml Mdv) Confirm Administered Dose 50 ml .ROUTE .STK-MED ONE Stop: 12/17/20 07:58 Bupivacaine HCl (Bupivacaine 0.5% 50 Ml Mdv) Confirm Administered Dose 50 ml .R OUTE .STK-MED ONE Stop: 12/19/20 06:25 Last Admin: 12/19/20 08:00 Dose: 10 ml Documented by: Ropivacaine 40 ml/Dexamethasone 8 mg/Epinephrine HCl 0.4 mg/ Sodium Chloride 37.6 ml 0 ml NERVRT ASDIRECTED [facility] Last Admin: 12/19/20 07:36 Dose: 80 syringe Documented by: Dexamethasone (Dexamethasone 4 Mg/Ml Sdv) Confirm Administered Dose 4 mg .ROUTE .STK-MED ONE Stop: 12/17/20 06:44 Dextrose/Water (50% Dextrose In Water 50 Ml Syringe) 50 ml IVPUSH ASDIRECTED PRN PRN Reason: Hypoglycemia Diphenhydramine HCl (Diphenhydramine 50 Mg/Ml Sdv) 25 mg IVPUSH BEDTIME PRN PRN Reason: Insomnia Diphenhydramine HCl (Diphenhydramine 50 Mg/Ml Sdv) 25 mg IVPUSH Q6H PRN PRN Reason: ITCHING Diphenhydramine HCl (Diphenhydramine 50 Mg/Ml Sdv) 50 mg IVPUSH Q6H PRN PRN Reason: ITCHING Fentanyl (Fentanyl 100 Mcg/2 Ml Sdv) Confirm Administered Dose 100 mcg .ROUTE .STK-MED ONE Stop: 12/15/20 09:25 Fentanyl (Fentanyl 100 Mcg/2 Ml Sdv) Confirm Administered Dose 100 mcg .ROUTE .STK-MED ONE Stop: 12/16/20 08:11 Fentanyl (Fentanyl 250 Mcg/5 Ml Sdv) Confirm Administered Dose 250 mcg .ROUTE .STK-MED ONE Stop: 12/17/20 06:44 Fentanyl (Fentanyl 100 Mcg/2 Ml Sdv) Confirm Administered Dose 100 mcg .ROUTE .STK-MED ONE Stop: 12/17/20 06:56 Glucagon (Glucagon,Human Recombinant 1 Mg Vial) 1 mg IM ASDIRECTED PRN PRN Reason: Hypoglycemia Glycopyrrolate (Glycopyrrolate 0.2 Mg/Ml 5 Ml Mdv) Confirm Administered Dose 1 mg .ROUTE .STK-MED ONE Stop: 12/17/20 06:44 Sodium Chloride (Normal Saline) 1,000 mls @ 1,000 mls/hr IV ASDIRECTED [facility] Last Admin: 12/14/20 21:21 Dose: 1,000 mls/hr Documented by: Tranexamic Acid 1,000 mg/ (Sodium Chloride) 60 mls @ 200 mls/hr IV ONETIME ONE Stop: 12/14/20 20:59 Last Admin: 12/14/20 21:21 Dose: 200 mls/hr Documented by: Promethazine HCl 6.25 mg/ (Sodium Chloride) 50.25 mls @ 200 mls/hr IV Q6H PRN PRN Reason: Nausea/Vomiting Dextrose/Lactated Ringer's (Dextrose 5%-Lactated Ringers) 1,000 mls @ 150 mls/hr IV ASDIRECTED [facility] Last Admin: 12/15/20 11:27 Dose: 150 mls/hr Documented by: Dextrose/Lactated Ringer's (Dextrose 5%-Lactated Ringers) 1,000 mls @ 100 mls/hr IV ASDIRECTED [facility] Last Admin: 12/16/20 22:43 Dose: 100 mls/hr Documented by: Fentanyl 2,500 mcg/ Sodium (Chloride) 250 mls @ 0 mls/hr EPIDUR TITRATE [facility]; Protocol Last Admin: 12/19/20 01:40 Dose: 12 mls/hr, 12 mls/hr Documented by: Sodium Chloride (Normal Saline) 75 mls @ 3 mls/sec IV ONETIME ONE Stop: 12/16/20 12:48 Last Admin: 12/16/20 13:03 Dose: 3 mls/sec Documented by: Cefoxitin Sodium 2 gm/ Sodium (Chloride) 50 mls @ 100 mls/hr IV ONETIME ONE Stop: 12/17/20 05:59 Last Admin: 12/17/20 04:35 Dose: 100 mls/hr Documented by: Sodium Chloride (Normal Saline) Confirm Administered Dose 10 mls @ as directed .ROUTE .STK-MED ONE Stop: 12/17/20 06:44 Lactated Ringer's (Ringers, Lactated) Confirm Administered Dose 1,000 mls @ as directed .ROUTE .STK-MED ONE Stop: 12/17/20 07:55 Acetaminophen 1,000 mg/ Premix 100 mls @ 400 mls/hr IV ONETIME ONE Stop: 12/17/20 09:14 Last Admin: 12/17/20 09:09 Dose: 400 mls/hr Documented by: Lactated Ringer's (Ringers, Lactated) 1,000 mls @ 175 mls/hr IV ASDIRECTED [facility] Last Admin: 12/18/20 05:27 Dose: 175 mls/hr Documented by: Cefoxitin Sodium 2 gm/ Sodium (Chloride) 50 mls @ 100 mls/hr IV Q6H [facility] Stop: 12/18/20 10:59 Last Admin: 12/18/20 10:34 Dose: 100 mls/hr Documented by: Lactated Ringer's (Ringers, Lactated) 1,000 mls @ 100 mls/hr IV ASDIRECTED [facility] Last Admin: 12/18/20 12:09 Dose: 100 mls/hr Documented by: Lactated Ringer's (Ringers, Lactated) 1,000 mls @ 100 mls/hr IV ASDIRECTED [facility] Last Admin: 12/18/20 21:02 Dose: 100 mls/hr Documented by: Insulin Glargine (Insulin Glargine,Human Rec. Analog 100 Units/Ml 3 Ml Pen) 8 units SUBCUT DAILY [facility] Insulin Glargine (Insulin Glargine,Human Rec. Analog 100 Units/Ml 3 Ml Pen) 18 units SUBCUT BEDTIME [facility] Last Admin: 12/16/20 21:39 Dose: 18 units Documented by: Insulin Human Lispro (Insulin Lispro 100 Unit/Ml 3 Ml Kwikpen) 0 unit SUBCUT QIDACANDBED [facility]; Protocol Last Admin: 12/15/20 08:35 Dose: Not Given Documented by: Insulin Human Lispro (Insulin Lispro 100 Unit/Ml 3 Ml Kwikpen) 0 unit SUBCUT QIDACANDBED [facility]; Protocol Last Admin: 12/17/20 21:33 Dose: Not Given Documented by: Insulin Human Lispro (Insulin Lispro 100 Unit/Ml 3 Ml Kwikpen) 12 unit SUBCUT ONETIME ONE Stop: 12/15/20 11:41 Last Admin: 12/15/20 11:51 Dose: 12 units Documented by: Iopamidol (Iopamidol 612 Mg/Ml 100 Ml Bottle) 100 ml IV . DIRECTED PRN PRN Reason: RADIOLOGY EXAM Stop: 12/16/20 12:48 Last Admin: 12/16/20 13:03 Dose: 100 ml Documented by: Lidocaine/Epinephrine (Lidocaine 1% With Epinephrine 1:100,000 50 Ml Mdv) Confirm Administered Dose 50 ml .ROUTE .STK-MED ONE Stop: 12/17/20 07:58 Lidocaine/Epinephrine (Lidocaine 1% With Epinephrine 1:100,000 50 Ml Mdv) Confirm Administered Dose 50 ml .ROUTE .STK-MED ONE Stop: 12/19/20 06:26 Last Admin: 12/19/20 08:00 Dose: 10 ml Documented by: Melatonin (Melatonin 3 Mg Tab) 9 mg PO BEDTIME PRN PRN Reason: Sleep Last Admin: 12/16/20 20:38 Dose: 9 mg Documented by: Meropenem (Meropenem 500 Mg Sdv) Confirm Administered Dose 500 mg .ROUTE .STK- MED ONE Stop: 12/17/20 06:17 Last Admin: 12/17/20 07:55 Dose: 500 mg Documented by: Meropenem (Meropenem 500 Mg Sdv) Confirm Administered Dose 500 mg .ROUTE .STK- MED ONE Stop: 12/19/20 06:25 Last Admin: 12/19/20 08:00 Dose: 500 mg Documented by: Midazolam HCl (Midazolam 1 Mg/Ml 2 Ml Sdv) Confirm Administered Dose 2 mg .ROUTE .STK-MED ONE Stop: 12/15/20 09:25 Midazolam HCl (Midazolam 1 Mg/Ml 2 Ml Sdv) Confirm Administered Dose 2 mg .ROUTE .STK-MED ONE Stop: 12/16/20 08:11 Midazolam HCl (Midazolam 1 Mg/Ml 2 Ml Sdv) Confirm Administered Dose 2 mg .ROUTE .STK-MED ONE Stop: 12/17/20 06:58 Midazolam HCl (Midazolam 1 Mg/Ml 2 Ml Sdv) Confirm Administered Dose 2 mg .ROUTE .STK-MED ONE Stop: 12/19/20 07:18 Morphine Sulfate (Morphine 2 Mg/Ml Syringe) 2 mg IVPUSH Q2H PRN PRN Reason: Pain Naloxone HCl (Naloxone 0.4 Mg/Ml Sdv) 0.1 mg IVPUSH Q5M PRN PRN Reason: RESP RATE LESS THAN 6/MINUTE Naloxone HCl (Naloxone 0.4 Mg/Ml Sdv) 0.4 mg IV ASDIRECTED PRN PRN Reason: ITCHING Last Admin: 12/18/20 21:02 Dose: 0.4 mg Documented by: Neostigmine Methylsulfate (Neostigmine Methylsulfate 1 Mg/Ml 5 Ml Syringe) Confirm Administered Dose 5 mg .ROUTE .STK-MED ONE Stop: 12/17/20 06:44 Nicotine (Nicotine 14 Mg/24 Hr Patch) 14 mg TRDERM DAILY [facility] Last Admin: 12/17/20 21:33 Dose: Not Given Documented by: Scopolamine Patch (Check) 1 each TOP DAILY [facility] Stop: 12/19/20 09:01 Last Admin: 12/19/20 09:03 Dose: 1 each Documented by: Ondansetron HCl (Ondansetron 4 Mg/2 Ml Sdv) 4 mg IV Q4H PRN PRN Reason: Nausea/Vomiting Ondansetron HCl (Ondansetron 4 Mg/2 Ml Sdv) Confirm Administered Dose 4 mg .ROUT E .STK-MED ONE Stop: 12/17/20 06:44 Pantoprazole Sodium (Pantoprazole 40 Mg Vial) 40 mg IVPUSH Q12H [facility] Last Admin: 12/15/20 09:47 Dose: 40 mg Documented by: Pantoprazole Sodium (Pantoprazole 40 Mg Tab.Cr) 40 mg PO BIDAC [facility] Last Admin: 12/17/20 21:33 Dose: Not Given Documented by: Polyethylene Glycol (Polyethylene Glycol 3350 Powder 238 Gm Bot) 238 gm PO ONETIME ONE Stop: 12/15/20 17:01 Last Admin: 12/15/20 16:22 Dose: 238 gm Documented by: Propofol (Propofol 200 Mg/20 Ml Sdv) Confirm Administered Dose 200 mg .ROUTE .STK-MED ONE Stop: 12/15/20 09:25 Propofol (Propofol 200 Mg/20 Ml Sdv) Confirm Administered Dose 200 mg .ROUTE .STK-MED ONE Stop: 12/16/20 08:11 Propofol (Propofol 200 Mg/20 Ml Sdv) Confirm Administered Dose 200 mg .ROUTE .STK-MED ONE Stop: 12/16/20 09:08 Propofol (Propofol 200 Mg/20 Ml Sdv) Confirm Administered Dose 200 mg .ROUTE .STK-MED ONE Stop: 12/17/20 06:44 Propofol (Propofol 200 Mg/20 Ml Sdv) Confirm Administered Dose 200 mg .ROUTE .STK-MED ONE Stop: 12/19/20 07:18 Rocuronium Delevan (Rocuronium 50 Mg/5 Ml Vial) Confirm Administered Dose 50 mg .ROUTE .STK-MED ONE Stop: 12/17/20 06:44 Scopolamine (Scopolamine 1.5 Mg Transdermal Patch) 1.5 mg TOP ONETIME ONE Stop: 12/17/20 08:59 Last Admin: 12/17/20 09:04 Dose: 1.5 mg Documented by: Sodium Chloride (Sodium Chloride 0.9% 10 Ml Syringe) 10 ml FLUSH ONETIME PRN PRN Reason: PER RADIOLOGY PROTOCOL Stop: 12/16/20 12:48 Last Admin: 12/16/20 13:03 Dose: 10 ml Documented by: Zolpidem Tartrate (Zolpidem 5 Mg Tab) 5 mg PO BEDTIME PRN PRN Reason: Sleep Last Admin: 12/14/20 23:16 Dose: 5 mg Documented by: - Exam Quality Assessment: Supplemental Oxygen General: Alert, Oriented, Cooperative, No Acute Distress Lungs: Normal Respiratory Effort GI/Abdominal Exam: Soft, No Distention Extremities: No Pedal Edema Psy/Mental Status: Alert, Normal Affect - Patient Data Lab Results Last 24 hrs: Laboratory Results - last 24 hr 12/18/20 12/18/20 12/18/20 Range/Units 11:30 16:28 21:00 WBC (4.5-11.0) K/uL RBC (4.30-5.90) M/uL Hgb (12.0-15.0) g/dL Hct (40.0-54.0) % MCV (80-98) fL MCH (27-31) pg MCHC (32-36) % Plt Count (150-400) K/uL Sodium (140-148) mmol/L Potassium (3.6-5.2) mmol/L Chloride (100-108) mmol/L Carbon Dioxide (21-32) mmol/L Anion Gap (5.0-14.0) mmol/L BUN (7-18) mg/dL Creatinine (0.8-1.3) mg/dL Est Cr Clr Drug Dosing mL/min Estimated GFR (MDRD) (>60) Glucose (74-106) mg/dL POC Glucose 188 H 211 H 233 H (74-106) MG/DL Calcium (8.5-10.1) mg/dL Phosphorus (2.5-4.9) mg/dL Total Bilirubin (0.2-1.0) mg/dL AST (15-37) U/L ALT (12-78) U/L Alkaline Phosphatase (46-116) U/L NT-Pro-B Natriuret Pep (5-125) pg/mL Total Protein (6.4-8.2) g/dL Albumin (3.4-5.0) g/dL Globulin (2.3-3.5) g/dL Albumin/Globulin Ratio (1.2-2.2) 12/19/20 12/19/20 Range/Units 04:22 04:22 WBC 9.1 (4.5-11.0) K/uL RBC 3.09 L (4.30-5.90) M/uL Hgb 9.2 L D (12.0-15.0) g/dL Hct 28.1 L (40.0-54.0) % MCV 91 (80-98) fL MCH 30 (27-31) pg MCHC 33 (32-36) % Plt Count 235 (150-400) K/uL Sodium 146 (140-148) mmol/L Potassium 3.7 (3.6-5.2) mmol/L Chloride 107 (100-108) mmol/L Carbon Dioxide 29 (21-32) mmol/L Anion Gap 10.3 (5.0-14.0) mmol/L BUN 9 (7-18) mg/dL Creatinine 1.0 (0.8-1.3) mg/dL Est Cr Clr Drug Dosing 71.25 mL/min Estimated GFR (MDRD) > 60 (>60) Glucose 164 H (74-106) mg/dL POC Glucose (74-106) MG/DL Calcium 8.6 (8.5-10.1) mg/dL Phosphorus 2.3 L (2.5-4.9) mg/dL Total Bilirubin 0.2 D (0.2-1.0) mg/dL AST 17 (15-37) U/L ALT 35 (12-78) U/L Alkaline Phosphatase 47 (46-116) U/L NT-Pro-B Natriuret Pep 424 H (5-125) pg/mL Total Protein 5.2 L (6.4-8.2) g/dL Albumin 2.7 L (3.4-5.0) g/dL Globulin 2.5 (2.3-3.5) g/dL Albumin/Globulin Ratio 1.1 L (1.2-2.2) Result Diagrams: 12/19/20 04:22 12/19/20 04:22 Sepsis Event Note - Evaluation Sepsis Screening Result: No Definite Risk - Focused Exam Vital Signs: Vital Signs Temp Temp Pulse Resp BP BP Pulse Ox 12/19/20 10:05 36.8 C 97 12 145/80 H 93 L 12/19/20 09:46 35.5 C L 125 H 18 124/74 90 L 12/19/20 09:09 36.2 C 101 H 14 131/70 94 L 12/19/20 09:02 131/70 12/19/20 08:45 36.4 C 97 14 131/70 94 L 12/19/20 08:35 36.2 C 97 14 103/81 95 12/19/20 08:18 36.2 C 85 14 126/67 92 L 12/19/20 08:05 36.2 C 89 16 118/61 96 12/19/20 08:00 88 16 129/56 L 92 L 12/19/20 07:55 93 16 133/52 L 88 L 12/19/20 07:50 92 16 134/66 94 L 12/19/20 07:45 36.5 C 94 16 123/71 94 L 12/19/20 07:01 96 12/19/20 04:30 35.9 C L 89 18 141/64 H 93 L 12/19/20 01:12 95 12/18/20 23:22 36.8 C 90 16 131/61 95 - Problem List Review Problem List Initiated/Reviewed/Updated: Yes - My Orders Last 24 Hours: My Active Orders 12/18/20 14:00 Lactated Ringers [Ringers, Lactated] 1,000 ml IV ASDIRECTED 12/19/20 09:28 Calcium Carbonate [Tums] 1,000 mg PO Q2H PRN 12/19/20 11:30 GLUCOSE POC LAB TO COLLECT JPM [POC] QIDACANDBED 12/19/20 16:30 GLUCOSE POC LAB TO COLLECT JPM [POC] QIDACANDBED 12/19/20 21:00 GLUCOSE POC LAB TO COLLECT JPM [POC] QIDACANDBED 12/20/20 07:30 GLUCOSE POC LAB TO COLLECT JPM [POC] QIDACANDBED GLUCOSE POC LAB TO COLLECT JPM [POC] QIDACANDBED 12/20/20 11:30 GLUCOSE POC LAB TO COLLECT JPM [POC] QIDACANDBED GLUCOSE POC LAB TO COLLECT JPM [POC] QIDACANDBED 12/20/20 16:30 GLUCOSE POC LAB TO COLLECT JPM [POC] QIDACANDBED 12/20/20 21:00 GLUCOSE POC LAB TO COLLECT JPM [POC] QIDACANDBED 12/21/20 07:30 GLUCOSE POC LAB TO COLLECT JPM [POC] QIDACANDBED 12/21/20 11:30 GLUCOSE POC LAB TO COLLECT JPM [POC] QIDACANDBED 12/21/20 16:30 GLUCOSE POC LAB TO COLLECT JPM [POC] QIDACANDBED 12/21/20 21:00 GLUCOSE POC LAB TO COLLECT JPM [POC] QIDACANDBED - Plan Plan:: ASSESSMENT AND PLAN - Right colon mass-complicated by lower gastrointestinal hemorrhage. Status post right colectomy on 12/17. Initially suspected colon cancer but pathology returned with a ruptured diverticulum and abscess formation. There is no evidence for malignancy. Patient is doing well postoperatively and should be ready for discharge tomorrow. Hemoglobin slightly lower today but relatively stable. -CEA pending -Surgical follow-up per Dr. Au -Continue PPI for the short-term -Hemoglobin in the morning Insulin-dependent diabetes mellitus-well controlled by history. Sugars well controlled. -Saline lock IV -Consistent carbohydrate -Continue long-acting insulin at bedtime -Sliding scale insulin Maintenance issues - -DVT prophylaxis-mechanical with recent hemorrhage -GI prophylaxis-PPI -Nutrition-consistent carbohydrate -Haywood catheter-not indicated Disposition -I anticipate discharge home after the hospital stay Thierry Forrester M.D.
[2020-12-19] MEDS: Potassium Phos in 0.9 % NaCl 15 MMOL in Premix Bag 1 BAG IV SCH ×6 (10:45→17:19)
[2020-12-19] MEDS: Pantoprazole 40 MG Vial IV SCH (10:55)
--- NOTE | 2020-12-19 14:36 | PN ---
DATE OF SERVICE: 12/19/2020 SUBJECTIVE: Kain is postop day 2. He is going to have delayed primary closure today. He has had 1 bowel movement. Oral intake 2616, output 875. BYRON drain put out 90 mL of a light pink drainage. Pain is controlled with an epidural. He has no questions or concerns. OBJECTIVE: GENERAL: Kain Bryson is a pleasant 65-year-old male. He is alert and oriented. VITAL SIGNS: TPR 97.1, 97, 14, blood pressure 103/81. HEENT: Negative. NECK: Supple. HEART: Regular rate and rhythm. LUNGS: Clear. ABDOMEN: Dressings dry, intact. Abdominal binder is on. EXTREMITIES: Without peripheral edema. ASSESSMENT: Exploratory laparotomy with right colectomy and mass at the ileocecal valve. Date of procedure 12/18/2020. Surgeon: Jude Au MD. PLAN: Orders to be written per Jude Au MD, after delayed primary closure. Dorothy Boothe PA-C /[phone]
[2020-12-19] MEDS: Aluminum Hydroxide/Magnesium Hydroxide/Simethicone Susp 30 ML Cup PO PRN ×2 (14:50→20:20)
[2020-12-19] MEDS ORDERED: Insulin Glargine,Human Rec. Analog 100 Units/ML 3 ML Pen SUBCUT SCH (21:00)
[2020-12-19] MEDS: Tamsulosin 0.4 MG Cap.ER PO SCH (21:50)
[2020-12-19] MEDS ORDERED: Melatonin 3 MG Tab PO PRN (22:04)
[2020-12-20] MEDS: Acetaminophen 500 MG Tab PO SCH ×2 (01:19→05:50)
[2020-12-20] MEDS ORDERED: Pantoprazole 40 MG Tab.CR PO SCH (07:30)
--- NOTE | 2020-12-22 07:52 | OR ---
DATE OF PROCEDURE: 12/15/2020 SURGEON: Jude Au MD PREOPERATIVE DIAGNOSIS: Rectal bleeding. POSTOPERATIVE DIAGNOSIS: Rectal bleeding with: 1. Very mild proximal duodenitis (negative for any upper GI bleeding source identified). 2. Old blood in rectum precluding colonoscopy (old blood, no fresh or active bleeding identified). OPERATIVE PROCEDURES: 1. Esophagogastroduodenoscopy with antral biopsies for CLOtest. 2. Incomplete colonoscopy. ANESTHESIA: IV sedation. INDICATION FOR PROCEDURE: This is a 65-year-old male admitted overnight with significant rectal bleeding, enough that he required some iron transfusion overnight. He is hemodynamically stable. At this point, the plan is to proceed with an upper and lower endoscopy. He has not had a bowel prep, so we are aware that we may find ourselves in a position where the colonoscopy needs to be repeated after a formal prep done depending on the colonoscopic findings. Potential risks including bleeding and perforation were reviewed, and the patient wishes to proceed. DETAILS OF PROCEDURE: The patient was taken to the operating room, placed in a left lateral decubitus position. IV sedation was administered, after which the upper GI endoscope was passed all the way to the length of the esophagus into the stomach with retroflexion view of the fundus, thereafter through the pyloric channel and into the junction of the third and fourth portions of the duodenum. Findings included normal hypopharynx, larynx, upper esophageal sphincter, esophageal body. At the EG junction, no significant hiatal hernia was noted nor was there significant inflammation at that level. Within the stomach, no significant abnormalities were noted. The patient did have some very mild patchy redness in the duodenal bulb, but without erosions or ulcers. Remainder of the duodenal exams were unremarkable. Overall, there were no signs of any likely source for upper GI bleeding site on the upper endoscopy. Biopsies were obtained from the antrum and sent for CLOtest for H pylori. Minimal bleeding from the biopsy site was seen, and the procedure then concluded. Initial digital rectal exam was performed. This revealed some old blood on the examining finger. The scope was then passed roughly 10 or 15 cm into the rectum, beyond which, the scope could not be passed due to there being a large amount of old clot. No active blood or bleeding was seen, but the amount of clot occluded adequate progression of the scope in a more proximal direction, and the procedure then concluded. The plan will be to proceed with a full colonoscopy prep today and repeat colonoscopy tomorrow. Jude Au MD /[id number]
--- NOTE | 2020-12-22 10:29 | DISCH ---
ADMISSION DIAGNOSES: Rectal bleeding, hypercholesterolemia, diabetes type 2, hypertension. DISCHARGE DIAGNOSES: 1. Exploratory laparotomy with right colectomy and mass at the ileocecal valve. Date of procedure, 12/18/2020. Surgeon: Jude Au MD. 2. Delayed primary closure, 12/19/2020. Surgeon: Jude Au MD. HISTORY: Kain Bryson is a 65-year-old male who presented to the emergency room on 12/14 because at home he had rectal bleeding with 4 stools. When he presented to the ER, he became lightheaded and was passed out twice, and on arrival, he had quite a bit of rectal bleeding. His pants were full of clots. Significant amount of blood in clothing and on floor. He reports that he has some low abdominal cramping, some nausea but no vomiting. He was admitted to [facility], and a colonoscopy and endoscopy was on 12/15/2020, the colonoscopy was repeated on 12/16/2020 due to inadequate prep. He did have a polypectomy with biopsies x2 for bleeding of a cecal polyp. On 12/17/2020, due to the findings on the colonoscopy, he had his laparotomy with right colectomy. After preoperative evaluation, discussion of possible risks and possible complications, he wished to proceed with surgical procedure. He had no operative complications. On 12/18/2020, postop day 1, magnesium was replaced. He was started on a consistent carb diet. Blood sugars were managed. He was started on metformin again and naproxen for pain. The pain was well controlled, and on 12/19/2020, Kain had a delayed primary closure for open abdominal incision and he tolerated that procedure well. On 12/21/2019, Kain was able to be discharged to home. Vital signs were stable. He was having some dark red stools. Hemoglobin was checked prior to discharge and he was yesterday 9.2 and today 8.8. Denies any pain. He is taking the Naprosyn for pain. He is up ambulating and wants to be discharged by 07:30 this morning. Kain was discharged. Discharge instructions were given. PHYSICAL EXAMINATION: GENERAL: Kain Bryson is a 65-year-old male, height 5 feet 8 inches, weight is 176 pounds, BMI is 26.8. TPR 95.7, 75, 15, blood pressure 138/60. HEENT: Negative. NECK: Supple. HEART: Regular rate and rhythm. LUNGS: Clear. ABDOMEN: Aquacel dressings on. Abdominal binder is on. EXTREMITIES: Without peripheral edema. DISPOSITION: Discharged to home. CONDITION: Stable and improving. FOLLOWUP: Followup appointment with Jude Au MD, on 12/31/2020 at 12 p.m. HOME MEDICATIONS: Oxycodone 5 mg q.4 hours p.r.n. pain, #42. Prescription was sent to pharmacy. He does not want to get it filled, but it will be there in case. He is to resume home medications of Glucophage 1000 mg p.o. b.i.d., lisinopril 20 mg p.o. daily, multivitamin 1 tablet daily, NovoLog 8 units subcu daily, Lantus 18 units subcu at bedtime, Nexium 1 tablet p.o. daily, naproxen 250 mg p.o. b.i.d. with meals, and Tylenol Extra Strength 1000 mg p.o. q.6 hours p.r.n. DIET: Regular, consistent carb diet. ACTIVITY: No lifting greater than 10 pounds for 6 weeks. Other activity, walk about 6 times short distance inside your home. Driving, do not drive for 1 week or within 6 hours of taking oxycodone. May shower. Keep operative site clean and dry. Wear abdominal binder for 6 weeks and then as tolerated. Take off Aquacel dressing on 12/23/2020. Notify provider if any fever, increased pain, swelling, redness, drainage, nausea, or vomiting. SPECIAL INSTRUCTIONS: Use incentive spirometer 10 times every hour while awake for 1 week. Check blood sugars as you normally do at home. Work slip given that he was in the hospital from 12/14/2020 to 12/20/2020, and no lifting greater than 10 pounds until 01/30/2021. He may return to work per his request at selected date which he wants to go back to work today. /[id number]
--- NOTE | 2020-12-22 16:19 | OR ---
DATE OF PROCEDURE: 12/17/2020 SURGEON: Jude Au MD PREOPERATIVE DIAGNOSIS: Mass involving cecum adjacent to the ileocecal valve. POSTOPERATIVE DIAGNOSIS: Mass involving cecum adjacent to the ileocecal valve. OPERATIVE PROCEDURE: Exploratory laparotomy with right colectomy ([id number]). ANESTHESIA: General plus epidural. OPTICS TEST TECHNICIAN: Dorothy Boothe PA-C INDICATIONS FOR PROCEDURE: This is a 65-year-old male presenting with some significant GI bleeding requiring transfusion. Colonoscopy done yesterday showed a mass in the area of the ileocecal valve. Some of this was biopsied, but at this point the decision making would be not necessarily related to any biopsy findings. The differential diagnosis would include an inflammatory mass, a premalignant lesion or a malignant lesion with a formal resection likely being required to differentiate those. Plan is to proceed with right colectomy. Potential risks of the procedure including bleeding, infection, leaks from various GI tract closures, problems with bowel obstruction over time, possible need for additional treatment if malignancy is identified were all reviewed with the patient, and he wishes to proceed. DETAILS OF PROCEDURE: The patient was taken to the operating room and after epidural catheter was placed, general endotracheal anesthesia was induced and epidural infusion initiated. Haywood catheter was inserted, and the abdomen prepped and draped. An oblique incision parallel with the right costal margin was then made and carried down through the skin and subcutaneous tissue and musculofascial layers. Upon entering the peritoneal cavity, no ascitic fluid was noted. The mass in the area of the ileocecal valve was easily palpable. There was no significant lymphadenopathy present within the ileocolic or right colic areas. The liver was free of any evident metastatic disease. At this point, the peritoneal reflection of the distal small bowel, cecum, and right colon was divided with electrocautery along with blunt dissection. This allowed medial mobilization of the right colon and distal small bowel. Care was taken to avoid injury to the right ureter and duodenum. The distal small bowel was then divided with the GROVER stapler as was the transverse colon just to the right of the middle colic vessels. The intervening mesentery was divided with combination of vascular and mesenteric emily, and the specimen delivered from the field. Off the field, the specimen was delivered. It was an obvious mass affecting the area of the ileocecal valve which was highlighted for the pathologist. At this point, no bleeding or other further problems noted. A [id number] ileocolic anastomosis was accomplished with 2 internal firings of the Endo-GROVER 60 mm stapler followed by common opening being closed transversely with GRVOER emily as well. Angles anastomosed and mesenteric defect were then approximated with some 3-0 Vicryl stitch and then reanastomosed reinforced with fibrin sealant. The abdomen was irrigated with antibiotic-containing saline solution. A single Rashad-Guzman drain was then placed through a stab wound in the right flank and draped across the area of the anastomosis from there down toward the pelvis on the right side. The posterior peritoneum along the incision was initially closed with #2 Vicryl stitch anterior fascia. The subcutaneous tissue and skin were felt to be high risk for wound infection if primary closure was undertaken. We therefore packed open for a planned delayed primary closure in 48 hours. The patient tolerated the procedure well and was taken to the recovery room in satisfactory condition. Jude Au MD /[id number]
--- NOTE | 2020-12-22 17:57 | OR ---
DATE OF PROCEDURE: 12/19/2020 SURGEON: Jude Au MD PREOPERATIVE DIAGNOSIS: Open abdominal incision. POSTOPERATIVE DIAGNOSIS: Open abdominal incision. OPERATIVE PROCEDURE: Delayed primary closure of open abdominal incision. ANESTHESIA: Local plus IV sedation. INDICATION FOR PROCEDURE: The patient is status post a right colectomy 48 hours ago. At the time of the procedure, it was felt that the skin and subcutaneous tissue would be at high risk for wound infection if primary closure was undertaken. Given this, the wound was packed open for a planned delayed primary closure at this time. Potential risks including bleeding and perforation were discussed, and the patient wishes to proceed. DETAILS OF PROCEDURE: The patient was taken to the operating room and placed in the supine position. IV sedation was administered after which the operative dressing was taken down and found to be clean. The wound was then prepped and draped, anesthetized with 1% lidocaine and irrigated with meropenem-containing saline solution. This was a low right subcostal-type incision and was then closed with some 3-0 and 4-0 Vicryl stitch deep and emily for the skin. Using an ultrasound guidance, bilateral transversus abdominis plane blocks were placed, and dressing applied. The patient was then taken to the recovery room in satisfactory condition. There were no evident complications. Jude Au MD /[id number]
--- NOTE | 2020-12-23 17:07 | OR ---
DATE OF PROCEDURE: 12/16/2020 SURGEON: Jude Au MD PREOPERATIVE DIAGNOSIS: Recent rectal bleeding. POSTOPERATIVE DIAGNOSIS: Rectal bleeding associated with polypoid mass in the ileocecal valve. OPERATIVE PROCEDURE: Flexible colonoscopy with partial polypectomy by snare technique. ANESTHESIA: IV sedation. INDICATION FOR PROCEDURE: This is a 65-year-old male presenting with some rectal bleeding over the weekend. Initial upper endoscopy yesterday was relatively unremarkable. The colonoscopy attempt was unsuccessful due to large amount of clot. The patient subsequently has undergone full colonoscopy prep and is to undergo colonoscopy at this time. Potential risks including bleeding and perforation were discussed, and the patient wishes to proceed. DETAILS OF PROCEDURE: The patient was taken to the operating room and placed in a left lateral decubitus position. IV sedation was administered, after which the initial digital rectal exam was performed, it was unremarkable. Colonoscope was passed into the rectum with retroflexion revealing uncomplicated hemorrhoidal columns. Scope was eventually passed to the cecum. At that point, the patient was noted to have a polypoid mass, which was quite firm, more or less straight at the ileocecal valve. The surface of this was removed by means of initial polypectomy forceps aided by some biopsy retrieval of the fragments. Upon completion of the polypectomy, there was still a deeper layer that was obviously firm and inflamed, and at this point, a decision was made to proceed with a right colectomy. The specimens retrieved and the procedure concluded. No evident of complications was present. We will discuss the situation with the patient later today. The correct treatment in this case would be a right colectomy. Differential diagnosis would include inflammatory process versus benign and malignant neoplastic process, all of which would require a formal resection to clearly delineate. Assuming the patient wishes to stay here as he is from [place], we will proceed with the colon resection using enhanced recovery protocol tomorrow. Jude Au MD /[id number]
== END 2020-12-20 08:20 | disposition home or self-care (01) | DRG 329 ==
LOC: JP.ED 20:25 → JP.ICU 21:37 → JP.MS 12-16 15:26
PROVIDERS: ADMIT Family Medicine; ATTEND Internal Medicine
PROC: 0DB68ZX Excision of Stomach, Via Natural or Artificial Opening Endoscopic, Diagnostic (ICD-10-PCS; 2020-12-15)
PROC: 0DJD8ZZ Inspection of Lower Intestinal Tract, Via Natural or Artificial Opening Endoscopic (ICD-10-PCS; 2020-12-15)
PROC: 30233N1 Transfusion of Nonautologous Red Blood Cells into Peripheral Vein, Percutaneous Approach (ICD-10-PCS; 2020-12-15)
PROC: 0DBF8ZX Excision of Right Large Intestine, Via Natural or Artificial Opening Endoscopic, Diagnostic (ICD-10-PCS; 2020-12-16)
PROC: 0DTF0ZZ Resection of Right Large Intestine, Open Approach (ICD-10-PCS; principal; 2020-12-17)
PROC: 0WQF0ZZ Repair Abdominal Wall, Open Approach (ICD-10-PCS; 2020-12-19)
DX: K62.5 Hemorrhage of anus and rectum (principal); R10.31 Right lower quadrant pain; D12.0 Benign neoplasm of cecum; K57.21 Diverticulitis of large intestine with perforation and abscess with bleeding; I10 Essential (primary) hypertension; E78.00 Pure hypercholesterolemia, unspecified; K21.9 Gastro-esophageal reflux disease without esophagitis; E11.9 Type 2 diabetes mellitus without complications; F17.200 Nicotine dependence, unspecified, uncomplicated; R09.02 Hypoxemia; K29.80 Duodenitis without bleeding; Z20.822 Contact with and (suspected) exposure to COVID-19; Z88.2 Allergy status to sulfonamides; Z79.4 Long term (current) use of insulin; Z79.899 Other long term (current) drug therapy
CPT/HCPCS: 0241U; 36415; 36430; 71260; 74177; 80048; 80053; 82378; 82962; 83735; 83880; 84100; 85025; 85027; 85610; 86850; 86900; 86901; 86920; 86922; 87081; 88305; 88307; 94762; 96374; 99231; 99232; 99285; A9270-GY; C9113; J0131; J0171; J0694; J1100; J1815; J1815-GY; J2185; J2250; J2310; J2405; J2704; J2710; J2795; J3010; J3475; J3490; J7030; J7050; J7120; J7121; P9016; Q9967